=== PATIENT | female | born 1980 | race Caucasian/White ===

== ENCOUNTER 2021-12-04 13:30 | Outpatient (CLI) | payer BC, SELFPAY ==
--- NOTE | 2021-12-31 11:51 | P.SLS_ITS ---
Sleep Study Details Details Interpreting Provider: Delio Stock MD Date of Sleep Study: 12/04/2021 Sleep Study Details: STUDY TYPE:? Home ? BMI:? Not reported ORDERING PROVIDER:? Nirmala INDICATION:? Concerns about sleep apnea ? SLEEP SUMMARY:? 175.5 monitored minutes RESPIRATORY SUMMARY:? 1.4, low oxygen 83 0.8% of study oxygen less than 90%, 0.1% of study oxygen less than 85% 0.1% of study snoring PERIODIC LIMB MOVEMENTS OF SLEEP:? Not recorded CARDIAC:? Range 56 to 91, mean 66.9 IMPRESSION:? This study does not demonstrate clinically significant obstructive sleep apnea. The monitoring time was short of 175 minutes. If the patient did not sleep well during the study would recommend repeat study with a sedative hypnotic agent. Alternative would be an in-lab study if a sleep disorder is strongly suspected. RECOMMENDATION: See above
--- OUTSIDE RECORDS SUMMARY | 2022-01-15 13:33 | XMS_ITS | Encounter Summary ---
:1980 Author Organization [employer] Address [address], [place] [address] Care Team Providers Name Role Phone Raheel Silvestre MD Primary Care Provider Reason for Visit Reason Comments Nutrition Counseling Encounter Details Date Type Department Care Team Description 09/17/2015 Office Visit [facility] Tapia, Morbid obe sity with BMI of 40.0-44.9, adult ([facility]) (Primary Dx); Surgery & Weight RDN, LD Bariatric surgery status Center [address] [place] [address] [address] [place] [id number] [phone] Social History Tobacco Use Types Packs/Day Years Used Date Smoking Tobacco: Never Assessed Sex Assigned at Date Recorded Not on file documented as of this encounter Last Filed Vital Signs Vital Sign Reading Time Taken Comments Blood Pressure - - Pulse - - Temperature - - Respiratory Rate - - Oxygen Saturation - - Inhaled Oxygen Concentration - - Weight 106.2 kg (234 lb 1.6 oz) 09/17/2015 10:05 AM CDT Height 165.1 cm (5' 5) 09/17/2015 10:05 AM CDT Body Mass Index 38.96 09/17/2015 10:05 AM CDT documented in this encounter Progress Notes Amanda Tapia, RD - 09/17/2015 10:31 AM CDT [facility] Medical Nutrition Therapy: Bariatric Post-Op ASSESSMENT: Referring Provider: Orlando Jolly Weight: 106.187 kg (234 lb 1.6 oz) Height: 1.651 m (5' 5) BMI: Estimated body mass index is 38.96 kg/(m^2) as calculated from the following: Height as of this encounter: 1.651 m (5' 5). Weight as of this encounter: 106.187 kg (234 lb 1.6 oz). Follow-up after sleeve gastrectomy surgery. Date of Surgery: August 17, 2015. Since last RD visit: Doing great. Tolerating pureed, drinking adequate fluids. Current dietary habits: Breakfast: Triple power finnish yogurt- 4 oz. Lunch: 1 egg made into egg salad. Dinner: pureed tuna salad Snacks: skim milk or protein powder, or premier protein shakes. Protein needs estimated at 65 grams daily. Intake does meet estimated needs for protein. Vitamin/Minerals: Patient is taking the following vitamin and mineral supplements: multivitamin and mineral daily. Exercise: Patient is not engaging in physical activity: not yet- is walking and doing things with kids. DIAGNOSIS: Nutrition Diagnosis: Obesity (NC 3.3) related to excess energy intake as evidenced by BMI 44 prior to bariatric surgery. INTERVENTION: Medical Nutrition Therapy provided on post bariatric surgery nutrition and activity behaviors. MONITORING AND EVALUATION: Patient goals: Advance to mashed textures. Take multivitamin and mineral daily. Take 1000 mcg sublingual B12 weekly. Take 2000 IU vitamin D daily. Take 1000mg calcium daily. Follow up with dietitian in 1 month(s). Time: 30 minutes Thank you for this referral documented in this encounter Plan of Treatment Not on filedocumented as of this encounter Visit Diagnoses Diagnosis Morbid obesity with BMI of 40.0-44.9, ad ult ([facility]) - Primary Bariatric surgery status documented in this encounter Care Teams Compliance Examiner Relationship Specialty Start Date End Date Raheel Silvestre MD PCP - General 10/17/[address] [place] [address] documented as of this encounter
--- OUTSIDE RECORDS SUMMARY | 2022-01-15 13:33 | XMS_ITS | Encounter Summary ---
:1980 Author [facility] Address [address] [place] [address] Care Team Providers Name Role Phone Raheel Silvestre MD Primary Care Provider Reason for Visit Reason Onset Date Comments Follow-up, NOS 02/09/2017 [facility] long-term fo llow-up Encounter Details Date Type Department Care Team Description 02/09/2017 Telephone Quality Data and Mychart, Generic Follow- up, NOS ([facility] Measurement Provider long-term follow-up) [address] [place] [id number] Social History Tobacco Use Types Packs/Day Years Used Date Smoking Tobacco: Former Cigarettes Quit : 01/05/2008 Comments: quit january 7 years ago. Alcohol Use Standard Drinks/Week Comments No 0 (1 standard drink = 0.6 oz pure alcoho l) none since surgery Sex Assigned at Date Recorded Not on file documented as of this encounter Plan of Treatment Not on filedocumented as of this encounter Visit Diagnoses Not on filedocumented in this encounter Care Teams Partition Assembly Machine Operator Relationship Specialty Start Date End Date Raheel Silvestre MD PCP - General 10/17/[address] [place] [address] documented as of this encounter
--- OUTSIDE RECORDS SUMMARY | 2022-01-15 13:33 | XMS_ITS | Encounter Summary ---
:1980 Author Organization [employer] Address [address] [place] [address] Care Team Providers Name Role Phone Raheel Silvestre MD Primary Care Provider Reason for Visit Reason Comments Sleeve Surg Followup Encounter Details Date Type Department Care Team Description 09/17/2015 Office Visit Cary Bolaños Bariatric surgery Surgery & Weight Mio RN status ([facility]anca Pichardo) Center [address] [place] [address] [address] [place], [place] [address] Social History Tobacco Use Types Packs/Day Years Used Date Smoking Tobacco: Never Assessed Sex Assigned at Date Recorded Not on file documented as of this encounter Last Filed Vital Signs Vital Sign Reading Time Taken Comments Blood Pressure 94/65 09/17/2015 10:40 AM CDT Pulse 75 09/17/2015 10:40 AM CDT Temperature - - Respiratory Rate - - Oxygen Saturation - - Inhaled Oxygen Concentration - - Weight 106.2 kg (234 lb 1.6 oz) 09/17/2015 10:40 AM CDT Height 166.4 cm (5' 5.5) 09/17/2015 10:40 AM CDT Body Mass Index 38.36 09/17/2015 10:40 AM CDT documented in this encounter Patient Instructions Patient InstructionsCary Zarate RN - 09/17/2015 10:32 AM CDT Images from the original note were not included. Supplements to be started: Vitamin B12 once a week, 1,000 mcg's, one tablet taken under the tongue (allow to slowly dissolve), once a week. Vitamin D3, 2,000 international units, one capsule daily Viactive calcium (chewable form), one chew, twice a day You should already be taking your chewable vitamin everyday. If not, get it going. Protein: Strive to reach you protein goal requirements. Your food alone will not be enough to get you there. Supplement with protein powders as needed to reach you goal. Fluids: Goal of calorie free fluids is 48-64 ounces per day. Make sure that you stop your liquids 1/2 hour before your meal, with no fluids with your meal, and not resuming your liquids for 1/2 hour after yourmeal is completed. These rules are forever, to assure you have optimal weight loss, and to prevent weight regain. Activity: Increase your activity as tolerated, but always feel challenged with whatever you do for activity. Goal to work towards is 30 minutes 5 days a week. When you feel like your exercise plan is no longer achallenge to you, bump it up. If you have underlying health conditions, make sure your primary is okay with your exercise plan. Be sure to review your 3-ring binder often. Our support group meets the and Thursday of every month from 5:30 to 6:30 pm in the lobby of our clinic. This is a support group for those who are considering or have undergone bariatric surgery. The groupexists to encourage the well-being of the whole person - body, mind and spirit. This group is a place of safety and support, where no one is judged, and each person is warmly welcomed. Please join us! -Check us out on Facebook and Twitter [email or web address] documented in this encounter Progress Notes Cary Zarate RN - 09/17/2015 10:56 AM CDT Bariatric Surgery Center Nurse Clinician Post-Op Follow-Up Visit SUBJECTIVE: This 35 y.o. year-old female presents for routine post-operative follow up status vertical sleeve gastrectomy Date of Surgery: 08/17/2015 Patient has been satisfied with weight loss results to this point. Problems: Diabetes, Mellitus, Type 2 and Joint Pain (Wt. bearing) Meals per day: 3 Dietary Intake: Food volumes are approximately 2-3 tbsp, 1/4 cup at each meal. Food Intolerances: None Patient is not experiencing dumping syndrome. Patient is snacking on nothing. Fluid intake averages > 64 oz per day. Skim milk: Consumes 2 servings of 8 oz Protein Shake: Consumes 2 servings Yogurt: 1 daily. Protein intake 60-70 grams daily Exercise: Patient is currently engaged in a formal exercise program. Patient current exercise routine consists of aerobic and > 5 times weekly Medications: History Smoking status ??? Former Smoker ??? Quit date: 01/05/2008 Smokeless tobacco ??? Not on file Comment: quit january appx 7 years ago. History Alcohol Use No Comment: none since surgery Patient is not experiencing difficulty in relationships related to the bariatric surgery. Patient's family is supportive. Patient is currently employed. Patient is not active in support groups. OBJECTIVE: BP 94/65 mmHg Pulse 75 Ht 5' 5.5 (166.4 cm) Wt 234 lb 1.6 oz (444403 g) BMI 38.35 kg/m2 Weight Last Visit: 254 lbs. Initial Weight: 279.6 lbs. Weight Change Since Last Visit: 19.9 lbs Total Weight Change: 45.4 lbs % Excess Weight Loss: 31%. CV: negative Gastrointestinal: no abdominal pain, change in bowel habits, or black or bloody stools Wound(s): Incisions are well healed Incisional hernia is not present. Lower Extremities: no redness or tenderness in the calves or thighs, no edema Skin: Skin color, texture, turgor normal. No rashes or lesions Hair loss is not present. Neuropsych: Normal ASSESSMENT: No symptoms and Uneventful post-op course PLAN: Patient is advised to continue supplements as per med list. Dietary Recommendations: Discussed with the patient appropriate diet after vertical sleeve gastrectomy with emphasis on 3 meals per day, with protein at every meal followed bya good fruit and/or vegetable choice. Meal duration, exercise, snacking avoidance, avoidance of highcalorie liquids, and satiety goals were also reviewed. Patient is advised to continue supplements. Activity Recommendations: Increase physical activity as tolerated to goal of 30 minutes five times per week. Return to clinic in 2 months, sooner prn problems or concerns. Dietitian appointment to be scheduled. Psychology follow-up prn. Patient is asked to follow up with primary care provider for further evaluation and treatment of changing medical comorbidities. documented in this encounter Plan of Treatment Not on filedocumented as of this encounter Visit Diagnoses Diagnosis Bariatric surgery status - Primary documented in this encounter Care Teams Pharmacy Cashier Relationship Specialty Start Date End Date Raheel Silvestre MD PCP - General 10/17/14[address] [place] [address] documented as of this encounter
--- OUTSIDE RECORDS SUMMARY | 2022-01-15 13:33 | XMS_ITS | Clinical Summary ---
:1980 Author Organization [facility] Address [address] [place] [address] Care Team Providers Name Role Phone Raheel Silvestre MD Primary Care Provider Source Comments You are receiving this document as you are listed as the primary care provider,follow-up provider, or the patient has been referred to you for consultation.This is in compliance with the Medicare and Medicaid EHR Incentive Program,which states Providers who transition their patient to another setting of careor provider of care or refers their patient to another provider of care shouldprovide summarycare record for each transition of care or referral. [facility] Allergies No known active allergies Medications Medication Sig Dispensed Refills Start Date End Date Status zolpidem (AMBIEN) 10 Take 10 mg by 0 11/28/2014 Active MG tablet mouth at bedtime as needed for Sleep. acetaminophen Take 325-650 mg by 0 11/28/2014 Active (TYLENOL) 325 MG mouth every 4 tablet hours as needed for Pain. Maximum 4000mg per 24 hours pediatric multiple Take 1 tablet by 0 09/07/2015 Active vitamin-iron (FRUITY mouth daily (every CHEWS/IRON) chew 24 hours). tablet Indications: MINERAL DEFICIENCY PREVENTION, VITAMIN DEFICIENCY PREVENTION cholecalciferol Take 1 tablet by 0 09/17/2015 Active (VITAMIND3) 2000 UNITS mouth daily (every tablet 24 hours). Indications: PREVENTION OF VITAMIN D DEFICIENCY cyanocobalamin Place 1,000 mcg 0 09/17/2015 Active (VITAMIN B12) 1000 MCG under the tongue tablet once a week. Indications: PREVENTION OF VITAMIN B12 DEFICIENCY Calcium Citrate Take 1 tablet by 0 11/02/2015 Active (CALCITRATE) 950 MG mouth 2 times tablet daily. Indications: HYPOCALCEMIA PREVENTION FLUoxetine (PROZAC) 40 Take 40 mg by 0 12/12/2020 Active MG capsule mouth daily. omeprazole (PRILOSEC) Take 20 mg by 0 01/08/2021 Active 20 MG capsule mouth daily before breakfast. 1-2 times daily Methotrexate 12.5 0 Ac tive MG/0.5ML SOSY predniSONE (DELTASONE) 0 01/29/2021 Active 20 MG tablet Active Problems Problem Noted Date Bariatric surgery status 08/17/2015 Overview: Laparoscopic vertical sleeve gastrectomy Morbid obesity with BMI of 40.0-44.9, adult 12/05/2014 Chronic low back pain 12/05/2014 Overview: Disc disease L4-5 Family History Medical History Relation Name Comments Alcohol Abuse Father Osteoarthritis Father Anesthesia Reaction Mother Obesity Mother Coronary Artery Disease Maternal Grandfather Anxiety Maternal Grandmother Cancer Maternal Grandmother Bipolar Disorder Paternal Aunt Cancer Paternal Grandmother Depression Sister Obesity Sister Relation Name Status Comments Father Alive Mother Alive Maternal Grandfather Maternal Grandmother Paternal Aunt Paternal Grandmother Sister Social History Tobacco Use Types Packs/Day Years Used Date Smoking Tobacco: Former Cigarettes Quit : 01/05/2008 Smokeless Tobacco: Never Comments: quit january 7 years ago. Alcohol Use Standard Drinks/Week Comments Yes 0 (1 standard drink = 0.6 oz pure alcoho l) 1-2 per week Sex Assigned at Date Recorded Not on file Last Filed Vital Signs Vital Sign Reading Time Taken Comments Blood Pressure 114/67 02/08/2021 9:50 AM CDT Pulse 73 02/08/2021 9:50 AM CDT Temperature 36.4 ??C (97.5 ??F) 08/19/2015 7:40 AM CDT Respiratory Rate 18 08/19/2015 7:40 AM CDT Oxygen Saturation 99% 08/19/2015 7:40 AM CDT Inhaled Oxygen Concentration - - Weight 101.4 kg (223 lb 8 oz) 02/08/2021 9:44 AM CDT Height 166.4 cm (5' 5.5) 02/08/2021 9:44 AM CDT Body Mass Index 36.63 02/08/2021 9:44 AM CDT Plan of Treatment Health Maintenance Due Date Last Done Comments Cervical Cancer Screening 1980 Due Hep C Screening (Preventive 1980 Services) HepB (1) 1980 COVID-19 Vaccine (#1) 01/12/1980 HIV Screening (Preventive 1995 Services) Adult Preventive Visit 07/12/1997 DTaP/Tdap/Td (2 - Tdap) 01/03/2021 01/03/2011 Influenza (#1) 2021 12/26/2019, 01/24/2019, 01/28/2018, Additional history exists Zoster/Shingles (1 of 2) 07/12/2029 HPV Vaccine Aged Out No longer eligib le based on patient 's age to complete this topic HepA Aged Out No longer eligib le based on patient 's age to complete this topic Hib Aged Out No longer eligib le based on patient 's age to complete this topic IPV (Polio) Aged Out No longer eligib le based on patient 's age to complete this topic MCV4 Aged Out No longer eligib le based on patient 's age to complete this topic Pneumococcal Aged Out No longer eligib le based on patient 's age to complete this topic Insurance Payer Benefit Plan / Subscriber ID Effective Dates Phone Addre ss Type Group BCBS BCBS [employer] BLUE [id number] 2017-Present [address] [address] [place] [address] Jenny Humphreys Personal/Family Self 1980 [address] (Home) [place] [id number] FRANK HUMPHREYS Personal/Family Other 1976 [address] (Home) [place] [phone] (Work) Advance Directives Latest Code Status on File Code Status Date Activated Date Inactivated Comments Full Code 08/17/2015 11:01 AM 08/19/2015 4:29 PM Care Teams Client Reporting Associate Relationship Specialty Start Date End Date Raheel Silvestre MD PCP - General [address] [place] [address]
--- OUTSIDE RECORDS SUMMARY | 2022-01-15 13:33 | XMS_ITS | Encounter Summary ---
:1980 Author Organization [employer] Address [address] [address] Care Team Providers Name Role Phone Raheel Silvestre MD Primary Care Provider Reason for Visit Reason Comments Appt. Needed Encounter Details Date Type Department Care Team Description 11/23/2017 Telephone [place] [facility] Weight Marychuy Terrell RN Appt. Needed Center [address] [facility] [address] [place], [place] [id number] Social History Tobacco Use Types Packs/Day Years Used Date Smoking Tobacco: Former Cigarettes Quit : 01/05/2008 Comments: quit january appx 7 years ago. Alcohol Use Standard Drinks/Week Comments No 0 (1 standard drink = 0.6 oz pure alcoho l) none since surgery Sex Assigned at Date Recorded Not on file documented as of this encounter Nursing Notes Mt Terrell RN - 11/23/2017 3:40 PM CDT Called patient to discuss need for follow up visit after bariatric surgery: We missed you for your follow-up visit with your bariatric surgery team. Our goal is to help you through this life-changing event to assure not only your success, but also your continued good health. Please remember that these visits are not only important for continued success, but also to monitor your lab work. Even when you feel completely healthy, underlying health issues and deficiencies can occur if not closely monitored. Whether we are helping motivate for continued success or helping you getback on track, our team is here to help. Please call [phone] today to schedule an appointment. If you no longer plan to see us for your follow-up care, or if you have [facility] or [facility] clinic or Emergency department, please call [phone] and speak with a nurse so we can update your chart. documented in this encounter Plan of Treatment Not on filedocumented as of this encounter Visit Diagnoses Not on filedocumented in this encounter Care Teams Drill Operator Pneumatic Relationship Specialty Start Date End Date Raheel Silvestre MD PCP - General 10/[address] [place] [address] documented as of this encounter
--- OUTSIDE RECORDS SUMMARY | 2022-01-15 13:33 | XMS_ITS | Encounter Summary ---
:1980 Author Organization [employer] Address [address] [address] Care Team Providers Name Role Phone Raheel Silvestre MD Primary Care Provider Reason for Visit Reason Comments Post-Op Check Encounter Details Date Type Department Care Team Description 08/21/2015 Telephone [place] [facility] & Gloria Augustin RN Post-Op Check Weight Center [address] [facility] [address] [place], [place] [address] Social History Tobacco Use Types Packs/Day Years Used Date Smoking Tobacco: Never Assessed Sex Assigned at Date Recorded Not on file documented as of this encounter Nursing Notes Gloria Augustin RN - 08/21/2015 3:41 PM CDT Post-op phone call made today. Spoke with the patient . Pt. states she is doing well postoperatively.. PO fluid intake is adequate, pain control is good. She is encouraged to call the office with any questions or concerns re: the recent bariatric surgery. Call back number given. She is reminded of their post-op follow-up appointment scheduled for . ERSHIP ADVISOR documented in this encounter Plan of Treatment Not on filedocumented as of this encounter Visit Diagnoses Not on filedocumented in this encounter Care Teams Showroom Executive Director Relationship Specialty Start Date End Date Raheel Silvestre MD PCP - General 10/17/[address] [place] [address] documented as of this encounter
--- OUTSIDE RECORDS SUMMARY | 2022-01-15 13:33 | XMS_ITS | Encounter Summary ---
:1980 Author Organization [employer] Address [address] [place] [id number] Care Team Providers Name Role Phone Raheel Silvestre MD Primary Care Provider Reason for Visit Reason Comments Sleeve Surg Followup Encounter Details Date Type Department Care Team Description 08/23/2015 Office Visit [facility] Gloria Augustin [facility] surgery Surgery & Weight RN status (Blanca Pichardo) Center [address] [place] [address] [address] [place], [place] [id number] Social History Tobacco Use Types Packs/Day Years Used Date Smoking Tobacco: Never Assessed Sex Assigned at Date Recorded Not on file documented as of this encounter Last Filed Vital Signs Vital Sign Reading Time Taken Comments Blood Pressure - - Pulse 78 08/23/2015 9:44 AM CDT Temperature - - Respiratory Rate - - Oxygen Saturation - - Inhaled Oxygen Concentration - - Weight 115.2 kg (254 lb) 08/23/2015 9:44 AM CDT Height 166.4 cm (5' 5.5) 08/23/2015 9:44 AM CDT Body Mass Index 41.63 08/23/2015 9:44 AM CDT documented in this encounter Patient Instructions Patient InstructionsGloria Augustin RN - 08/23/2015 8:55 AM CDT Images from the original note were not included. Continue discharge meds as ordered. Follow instructions on after visit summary given to you on discharge from the hospital. Advance diet to full liquids, then pureed foods as outlined in your patient binder. Continue to push fluids to 48-64 ounces daily. If you are experiencing nausea, this may be related to dehydration. Begin chewable vitamins when you start the pureed foods. Keep incisions clean, washing daily with soap and water. Some bruising is normal. Increase activity as tolerated to a goal of 30 minutes daily, 5 times per week. Continue to work toward your protein goals. You will not be able to get your protein needs met due to small food volumes. You must use protein supplements as needed to meet your goal. Refer to your 3-ring binder often. A dietitian appointment should be scheduled when you leave today for one month after surgery. Please schedule an appointment with a nurse clinician for one month after surgery also. Our support group meets the and Thursday of every month in the lobby of our clinic. om 5:30 to 6:30 pm [facility] for those who are considering or have undergone bariatric surgery. The group exists to encourage the well- being of the whole person - body, mind and spirit. This group is a place of safety and support, where no one is judged, and each person is warmly welcomed. Please join us! -Check us out on Facebook and Twitter [email or web address] documented in this encounter Progress Notes Gloria Augustin RN - 08/23/2015 11:21 AM CDT Bariatric Surgery Center RN Initial Post-Op Visit SUBJECTIVE: This 35 y.o. year-old female presents for routine first post-operative follow-up, status post Vertical Sleeve Gastrectomy. Date of Surgery: 08/17/2015 Patient Symptoms: Fluid intake averages 48 to 64. Patient reports Uneventful post-op course. The patient is tolerating clear diet well. The patient will advance from clears to full liquids today. Exercise: Patient is primarily pursuing walking. OBJECTIVE: Today's Height: 5' 5.5 (166.4 cm) Preoperative Weight: 279.6 BMI: 45.8 Today's Weight: 254 lb (995694 g) BMI: Estimated body mass index is 41.61 kg/(m^2) as calculated from the following: Height as of this encounter: 5' 5.5 (166.4 cm). Weight as of this encounter: 254 lb (344359 g). Total Weight Change: 25.6 % Excess Weight Loss: 18%. Vitals: Pulse 78 Ht 5' 5.5 (166.4 cm) Wt 254 lb (694045 g) BMI 41.61 kg/m2 General Appearance: awake, alert, oriented, in no acute distress Skin: Skin color, texture, turgor normal. Incisions: steri strips clean, dry, intact Incisional hernia is not present. Lungs: Normal expansion, no accessory muscle use Heart: Heart regular rate and rhythm Abdomen: Soft, non-tender, normal bowel sounds. Extremities: no redness or tenderness in the calves or thighs, no edema Musculoskeletal: negative Neurologic: negative ASSESSMENT: Uneventful post-op course PLAN: Return to clinic in 2 to 3 weeks, sooner if any concerns. Discussed with the patient appropriate diet after a Vertical Sleeve Gastrectomy with emphasis on 3 meals per day, with protein at every meal followed by a good fruit and/or vegetable choice. Meal duration, exercise, snacking avoidance, avoidance of high calorie liquids, and satiety goals were also reviewed. Dietitian appointment in 2-3 weeks. Increase physical activity as tolerated to goal of 30 minutes five times per week. Return to work and activities as tolerated. Patient is asked to follow up with primary care provider for further evaluation and treatment of changing medical comorbidities. CTOR ENGINEERING documented in this encounter Plan of Treatment Not on filedocumented as of this encounter Visit Diagnoses Diagnosis Bariatric surgery status - Primary documented in this encounter Care Teams Supervisor Riprap Placing Relationship Specialty Start Date End Date Raheel Silvestre MD PCP - General 10/17/[address] [place] [address] documented as of this encounter
--- OUTSIDE RECORDS SUMMARY | 2022-01-15 13:33 | XMS_ITS | Encounter Summary ---
:1980 Author Organization [employer] Address [address] [address] Care Team Providers Name Role Phone Raheel Silvestre MD Primary Care Provider Reason for Visit Reason Comments Nutrition Counseling Encounter Details Date Type Department Care Team Description 11/02/2015 Office Visit [place] [facility] Amanda Simms, Morbid obesity with Surgery & Weight RDN, ATTILA BMI of 40.0-44.9, Center [address] [facility] adult ([facility]) (Primary [address] [facility] [address]) [address] [place] [id number] [phone] Social History Tobacco Use Types Packs/Day Years Used Date Smoking Tobacco: Never Assessed Sex Assigned at Date Recorded Not on file documented as of this encounter Last Filed Vital Signs Vital Sign Reading Time Taken Comments Blood Pressure - - Pulse - - Temperature - - Respiratory Rate - - Oxygen Saturation - - Inhaled Oxygen Concentration - - Weight 99.8 kg (220 lb 1.6 oz) 11/02/2015 10:51 AM CDT Height 166.4 cm (5' 5.5) 11/02/2015 10:51 AM CDT Body Mass Index 36.07 11/02/2015 10:51 AM CDT documented in this encounter Progress Notes Amanda Simms, RD - 11/02/2015 11:47 AM CDT ..[facility] Education Medical Nutrition Therapy: Bariatric Post-Op ASSESSMENT: Referring Provider: Orlando Jolly Weight: 99.837 kg (220 lb 1.6 oz) Height: 1.664 m (5' 5.5) BMI: Estimated body mass index is 36.06 kg/(m^2) as calculated from the following: Height as of this encounter: 1.664 m (5' 5.5). Weight as of this encounter: 99.837 kg (220 lb 1.6 oz). Follow-up after sleeve gastrectomy surgery. Date of Surgery: August 17, 2015. Since last RD visit: doing really really well. Current dietary habits: Breakfast: yogurt or deli meat/cheese. (has at break time) Lunch: chix/turkey and fruit/veg Dinner: chix/turkey and fruit/veg S nacks: cottage cheese (couple bites, sometimes). Protein needs estimated at 65 grams daily. Intake does meet estimated needs for protein. Vitamin/Minerals: Patient is taking the following vitamin and mineral supplements: multivitamin and mineral daily. 1000 mcg sublingual B12 weekly. 2000 IU vitamin D daily. 1000 mg calcium daily. Exercise: Patient is engaging in physical activity: walking almost daily. DIAGNOSIS: Nutrition Diagnosis: Altered GI function (NC 1.4) related to small stomach as evidenced by sleeve gastrectomy. INTERVENTION: Medical Nutrition Therapy provided on post bariatric surgery nutrition and activity behaviors. MONITORING AND EVALUATION: Patient goals: suggested including PRO shake every AM (early) since B is a bit later and this will likely eliminate . Follow up with dietitian in 1 month(s). Time: 30 minutes Thank you for this referral documented in this encounter Plan of Treatment Not on filedocumented as of this encounter Visit Diagnoses Diagnosis Morbid obesity with BMI of 40.0-44.9, ad ult ([facility]) - Primary documented in this encounter Care Teams Spinning Operator Relationship Specialty Start Date End Date Raheel Silvestre MD PCP - General [address] [place] [address] documented as of this encounter
--- OUTSIDE RECORDS SUMMARY | 2022-01-15 13:33 | XMS_ITS | Encounter Summary ---
:1980 Author Organization [employer] Address [address] [place] [id number] Care Team Providers Name Role Phone Raheel Silvestre MD Primary Care Provider Reason for Visit Reason Comments Sleeve Surg Followup Encounter Details Date Type Department Care Team Description 11/02/2015 Office Visit [facility] [place] [facility] Bariatric surgery Surgery & Weight TRUDY Lieberman status (Blanca Pichardo) Center [address] [facility] [address] [place], [place] [address] Social History Tobacco Use Types Packs/Day Years Used Date Smoking Tobacco: Never Assessed Sex Assigned at Date Recorded Not on file documented as of this encounter Last Filed Vital Signs Vital Sign Reading Time Taken Comments Blood Pressure 97/66 11/02/2015 11:42 AM CDT Pulse 93 11/02/2015 11:42 AM CDT Temperature - - Respiratory Rate - - Oxygen Saturation - - Inhaled Oxygen Concentration - - Weight 99.8 kg (220 lb) 11/02/2015 11:42 AM CDT Height 168.9 cm (5' 6.5) 11/02/2015 11:42 AM CDT Body Mass Index 34.98 11/02/2015 11:42 AM CDT documented in this encounter Progress Notes [place] Zarate RN - 11/02/2015 12:03 PM CDT Bariatric Surgery Center Nurse Clinician Post-Op Follow-Up Visit SUBJECTIVE: This 35 y.o. year-old female presents for routine post-operative follow up status vertical sleeve gastrectomy Date of Surgery: 08/17/2015 Patient has been satisfied with weight loss results to this point. Problems: Joint Pain (Wt. bearing) Meals per day: 3 Dietary Intake: Food volumes are approximately 2-3 tbsp, 1/4 cup, 1/2 cup at each meal. Food Intolerances: None Patient is not experiencing dumping syndrome. Patient is snacking on cheese or deli meats at times.Fluid intake averages 48 to 64 oz per day. Skim milk: Consumes 2 servings of 8 oz Protein Shake: Consumes 1 servings Yogurt: 1 daily. Protein intake 60-70 grams daily Exercise: Patient is currently engaged in a formal exercise program. Patient current exercise routine consists of aerobic, strength training, less than 30 minutes, 30 minutes or more and > 5 times weekly Medications: History Smoking status ??? Former Smoker ??? Quit date: 01/05/2008 Smokeless tobacco ??? Not on file Comment: quit january appx 7 years ago. History Alcohol Use No Comment: none since surgery Patient is experiencing difficulty in relationships related to the bariatric surgery. Patient's family is supportive. Patient is currently employed. Patient is active in support groups. OBJECTIVE: BP 97/66 mmHg Pulse 93 Ht 5' 6.5 (168.9 cm) Wt 220 lb (42647 g) BMI 34.98 kg/m2 Weight Last Visit: 234.1 lbs. Initial Weight: 279.6 lbs. Weight Change Since Last Visit: 14.1 lbs Total Weight Change: 59.5 lbs % Excess Weight Loss: 41%. CV: negative Gastrointestinal: no abdominal pain, change [...] times per week. Return to clinic in 3 months, sooner prn problems or concerns. Dietitian appointment to be scheduled. Psychology follow-up prn. Patient is asked to follow up with primary care provider for further evaluation and treatment of changing medical comorbidities. documented in this encounter Plan of Treatment Not on filedocumented as of this encounter Visit Diagnoses Diagnosis Bariatric surgery status - Primary documented in this encounter Care Teams Casing Inspector Relationship Specialty Start Date End Date Raheel Silvestre MD PCP - General 10/[address] [place] [address] documented as of this encounter
--- OUTSIDE RECORDS SUMMARY | 2022-01-15 13:33 | XMS_ITS | Encounter Summary ---
:1980 Author Organization [facility] Address [address], [place] [address] Care Team Providers Name Role Phone Raheel Fox MD Primary Care Provider Encounter Details Date Type Department Care Team Description 08/17/2015 - Hospital Encounter Mu-Ism 4Orlando Hansen, 08/19/2015 Medsurg/CYA MBBS [address] [facility] [address] [place] [id number] (Wo rk) Social History Tobacco Use Types Packs/Day Years Used Date Smoking Tobacco: Never Assessed Sex Assigned at Date Recorded Not on file documented as of this encounter Last Filed Vital Signs Vital Sign Reading Time Taken Comments Blood Pressure 115/67 08/19/2015 7:40 AM CDT Pulse 58 08/19/2015 7:40 AM CDT Temperature 36.4 ??C (97.5 ??F) 08/19/2015 7:40 AM CDT Respiratory Rate 18 08/19/2015 7:40 AM CDT Oxygen Saturation 99% 08/19/2015 7:40 AM CDT Inhaled Oxygen Concentration - - Weight 115.8 kg (255 lb 6.4 oz) 08/17/2015 5:47 AM CDT Height 165.1 cm (5' 5) 08/17/2015 5:47 AM CDT Body Mass Index 42.5 08/17/2015 5:47 AM CDT documented in this encounter Discharge Summaries Orlando Jolly MBBS - 08/19/2015 2:29 PM CDT Hospital Discharge Summary Bariatric Surgery Admission Date: 08/17/2015 Discharge Date: 08/19/2015 PATIENT HISTORY: Age: 35 y.o. years. Gender: female Vital Signs: BP 115/67 mmHg Pulse 58 Temp(Src) 97.5 ??F (36.4 ??C) (Oral) Resp 18 Ht 5' 5 (165.1 cm) Wt 255 lb 6.4 oz (060113 g) BMI 42.50 kg/m2 SpO2 99% DISCHARGE DIAGNOSES: as stated in the problem list below Patient Active Problem List Diagnosis ??? Morbid obesity with BMI of 40.0-44.9, adult (HRC) ??? Chronic low back pain ??? Laparoscopic vertical sleeve gastrectomy Procedures performed during this visit Laparoscopic Vertical Sleeve Gastrectomy (Surgeon: Dr. Jolly) Intraoperative Complications: None Postoperative Complications: None HOSPITAL COURSE: The patient was admitted to [facility] and underwent surgery, then transferred from the [address] without incident. Pt. was initiated on a clear liquid diet on the evening of surgery. On POD #1 patient had complaints of nausea and emesis. She received a total of two doses of IV Decadron and improved. Ultimately the pt. progressed without incident. On POD# 2 was tolerating fluids, vitals stable, afebrile, urine output satisfactory, and pt. was ambulating without difficulty. Pt. met criteria for discharge on POD #2. DISCHARGE PLAN: Observations, precautions, diet, activity, follow-up, special instructions and discharge medications were reviewed in detail with the patient and provided in written form. Medications were reviewed and updated on the Patient Health Profile in the electronic medical record. Please see discharge instruction form and the electronic medical record for more details. Pt. advised to follow up with primary care provider for medical issue follow up. Follow-up: Patient is to follow up via appointment with the bariatric surgery department as previously scheduled. documented in this encounter Discharge Instructions Discharge Instr - Other OrdersGospMartin gonzalez PA-C - 08/17/2015 9:21 AM CDT Hold all vitamins and supplements until directed at your follow-up visit. Do not take NSAIDs which include ibuprofen, advil, aleve after bariatric surgery. If you have post-op difficulties and need to go to an Emergency Room please present to [facility] Emergency Room. Wear abdominal binder when out of bed for one week after surgery. Then may continue to wear binder as needed for comfort. documented in this encounter Medications at Time of Discharge Medication Sig Dispensed Refills Start Date End Date acetaminophen (TYLENOL) Take 325-650 mg by 0 11/05 325 MG tablet mouth every 4 hours as needed for Pain. Maximum 4000mg per 24 hours zolpidem (AMBIEN) 10 MG Take 10 mg by mouth 0 tablet at bedtime as needed for Sleep. omeprazole (PRILOSEC) 20 Take 1 capsule by 90 capsule 0 08/0411/15/2015 MG capsule mouth daily (every 24 hours) for 90 days. ondansetron (AKA ZOFRAN) Take 1 tablet by 30 tablet 0 08/1608/23/2015 4 MG disintegrating mouth every 8 hours tablet as needed for Nausea or Vomiting. Dissolve tablet on tongue oxyCODONE (AKA Take 1-2 tablets by 30 tablet 0 08/17/2015 0 09/17/2015 ROXICODONE) 5 MG mouth every 4 hours immediate release tablet as needed for Pain. simethicone ([employer] [facility] Take 1 tablet by 120 tablet 2 6 02/08/2021 RELIEF EXTRA STRENGTH) mouth 4 times 125 MG chewable tablet daily. documented as of this encounter Progress Notes Orlando Jolly MBBS - 08/19/2015 2:29 PM CDTEncounter addended by: SARAH Amador on: 09/16/2015 8:43 PM
Documentation filed: Notes Section Lanette Roberts RN - 08/19/2015 2:29 PM CDT DISCHARGE O: Patient safely discharged to home. D: Patient is alert and oriented x 4. Pt up independently . Discharge criteria met. Vaccines addressed prior to discharge. A: Discharge instructions and medications reviewed and given to patient and significant other. Written medication education material provided on zofran, simethecone, oxycodone, prilosec including possible side effects. Prescriptions sent with patient. Belongings checklist reviewed with patient and significant other and belongings sent. Care plan issues addressed and education record updated. R: Patient verbalizes understanding and teaches back discharge instructions. Patient discharged by: ambulation with family. Lanette Reyes RN 2:30 PM 08/19/2015 Isidoro Gary MD - 08/19/2015 10:45 AM CDT surgery staff afvss feels much better abd benign, dressings dry a/p s/p sleeve will try another dose of decadron. ? dc later today Lanette Roberts RN - 08/18/2015 7:29 PM CDT O: Patient will tolerate bariatric clear liquid diet/increase oral intake, tolerate oral pain medications and have no nausea/vomiting. D: Patient struggled throughout the day with nausea/vomiting and tightness in abdomen. Nauseated with sips of water. had 2 small emesis. A: Zofran and ativan given for nausea with little relief. Also gave levsin. Rounding surgeon ordereda one time dose of decadron, prn tylenol and prn phenergan. R: Patient's nausea and pain improved after decadron. Is again able to tolerate water and oral pain medication. Will continue to encourage increase in oral intake. Lanette Reyes RN 7:29 PM 08/18/2015 Zuleika Bell MD - 08/18/2015 1:34 PM CDT POD 1 lap sleeve +ongoing nausea and emesis, +pain, hasn't been able to drink much yet. Not ready for dc. +voiding. AF, VSS abdomen soft, ND, +appropriate incisional tenderness A/P POD 1 decadron IV x 1 today clears as tolerated encourage ambulation likely dc home tomorrow when tolerating po Charlee Mckeon - 08/18/2015 9:39 AM CDT Nutrition Education Assessment Reason for education: Post-op diet education Patient Interview/Diet History: Pt s/p VSG. Currently on Bariatric CL diet. Tried to eat a popsicle this morning and vomited after eating. Pt thinks it may have been related to product room was cleanedwith, smelled strongly of vinegar and was upsetting. Has since tried sips of water without difficulty. Current and Discharge Diet: Bariatric CL diet Present for Education: Pt, SO Nutrition Diagnosis Nutrition Diagnosis: (NB-1.1) Food and nutrition related knowledge deficit related to limited/lack of prior exposure to specific diet recommendations as evidenced by change in existing diagnosis or condition and/or patient verbalizing interest in information. Nutrition Intervention Goal: Pt will understand guidelines of bariatric CL diet as evidenced by verbalization of at least 1food allowed on diet. Intervention: 1. Diet Education: Discussed: timeline for diet , foods allowed/avoided, diet progression per clinic guidance, eat/drink slowly, adequate hydration. Provided diet sheet for home use. Clinic contact information provided. Comprehension: Pt verbalized understanding of diet. States water, popsicles appropriate fluid choicefor this diet - meets above goal. Monitoring and Evaluation: No nutritional monitoring anticipated at this time. If pt develops any nutrition needs requiring RD intervention, please reconsult RD. Charlee Greene RD, LD, [facility].....................08/18/2015 9:37 AM Orlando López MBBS - 08/17/2015 8:50 PM CDT [facility] Progress note Subjective: POD # 0 s/p Lap sleeve gastrectomy good pain control no nausea, no emesis not spitting up Is tolerating clears Is ambulating Is voiding Objective: Filed Vitals: 08/17/15 1345 08/17/15 1435 08/17/15 1600 BP: 114/62 112/62 104/56 Pulse: 60 55 59 Temp: 97.7 ??F (36.5 ??C) Resp: 16 Weight: SpO2: 93% Assessment: POD # 0 S/P lap Sleeve Gastrectomy Doing well Plan: Bariatric clears ice chips Simethicone Abd binder Anticipate dc tomorrow Orlando Jolly MD [facility] Department of General Surgery N SUPERVISOR Terell Sullivan RN - 08/17/2015 11:25 AM CDT POST-OP O: Patient will have a stable post-op period. D: Pt arrived to room 416/416 -01, at 1100 (time). Patient is lethargic/drowsy. Initial Vital Signs: Temp: 36.4 ??C (97.5 ??F) (08/17/15 1105) Pulse: 56 (08/17/15 1105) Resp: 16 (08/17/15 1105) BP: 100/56 mmHg (08/17/15 1105) SpO2: 94 % (08/17/15 1105) Flow (L/min): 2 (08/17/15 1105) Pain rated at: 2. See Assessment and Doc Flowsheets for equipment and lines/drains. Dressing is clean, dry, intact. A: Monitor vital signs and assess patient per protocol. Patient oriented to bed controls and call lights. Discussed plan of care with patient and significant other. See Education Record. R: Patient settled to room. Will continue to monitor. Terell Sullivan RN 11:25 AM 08/17/2015 N SUPERVISOR documented in this encounter Procedure Notes Orlando Jolly MBBS - 08/17/2015 9:04 AM CDT [facility] Operative Report Date of Surgery: 08/17/2015 Pre Op Diagnosis: Morbid Obesity Post Op Diagnosis: Same Procedure Performed: Procedure(s): Laparoscopic Sleeve Gastrectomy, Upper Endoscopy Findings: Uniform vertical gastric sleeve on endoscopy Negative provocative leak test 40 F Bougie used Distal end of staple line 5 cm from pylorus Bio-A staple line re-inforcement, No sutures used for reinforcement No Hiatal hernia noted Bleeding from the dissected splenic surface was controlled with surgicel SURGEON: Orlando Jolly MD [facility] [employer] PRINCIPAL: Martin Pinedo PA-C The surgical residents are not qualified to assist in this surgery so a Physician Airplane Pilot Chief who specialized in Bariatric surgery was the store administrative assistant in this case. ANESTHESIA: GETA EBL: 30 ml SPECIMENS: Gastric remnant COMPLICATIONS: None DISPOSITION: Stable, transfer to Surgical floor Indications for Procedure: 35 y.o. yr old female who is morbidly obese. Numerous weight loss attempts without surgery have beenwithout success. Estimated body mass index is 42.5 kg/(m^2) as calculated from the following: Height as of this encounter: 5' 5 (165.1 cm). Weight as of this encounter: 255 lb 6.4 oz (683236 g). Procedure discussed: Lap sleeve gastrectomy, upper endoscopy. Had earlier discussed profile for weight loss, co morbidity resolution and risks/complications with the Sleeve gastrectomy. She understands that the weight loss and co-morbidity resolution she achievesand subsequently maintains will be impacted by her follow through on the recommendations made for diet, lifestyle and activity Had discussed procedure, risks, benefits and alternatives. She had expressed understanding of the potential outcomes and wished to proceed. In particular discussed the potential exacerbation of her GERD symptoms. Risks had included, but were not limited to, worsening heartburn/reflux, nausea, vomiting, dehydration, decreased absorption of vitamins regurgitation, strictures, leaks, abscesses, failure to thrive, re operations, , myocardial infarction, pneumonia, urinary tract infection, deep venous thrombosi s with or without pulmonary embolus, abdominal infection from bowel injury or abscess, bowel obstruction, wound infection, and bleeding. Also discussed risks relative to possible hiatal hernia repair if a significant hernia is identified to include, dysphagia, esophageal injury, recurrence Operative Procedure: Jenny Jiménez was brought to the operating room and prepared in routine fashion. Under the benefitsof general anesthesia, a 5 mm FIOS trocar was inserted in the Rt paramedian location and pneumoperitoneum was established using carbon dioxide gas to a maximum pressure of 15 mmHg. A total of five ports were placed into the abdomen. A liver retractor was placed through the rightmost port and this provided a view of the upper stomach. The operation was started by dividing the short gastric vessels off the greater curvature of the stomach. This dissection was carried up to the angle of His, and ultrasonic dissector was used for hemostasis. Bleeding from the dissected splenic surface was noted on taking down the most cephalad of short gastrics and was controlled with surgicel A hiatal hernia was noted. A 40-Malawian bougie was passed into the stomach and I used multiple black and green loads of the Cal[place] stapler device with seamguard to create a vertical sleeve gastrectomy with the 40-Malawian bougie as a template. The bougie was removed. An adult gastroscope was then inserted through the oropharynx and passed down through the esophagus into the gastric sleeve. The endoscope was advanced along the full length of the sleeve and everything looked appropriate with an intact staple line and no bubbling externally. The endoscope was then removed. The sleeve gastrectomy specimen was now removed from the abdomen through the 15 mm port. The fascia at the 15 mm port site was closed with 0-vicryl suture. We checked hemostasis, and the liver retractor and all ports were removed from the abdomen under direct visualization. Skin incisions were closed using 4-0 vicryl, and sterile dressings were placed. The patient tolerated the procedure well without any apparent immediate complications. All needle and sponge counts were correct x2 at the end of the operation, and I was present for all components of the procedure. Discharge Condition: Patient was discharged from the operating room to the next level of care in good condition. All surgical medications, procedures and x-rays performed in surgery-on the order of the operating physicians. Allied Health Professional: Martin Pinedo PA-C assisted in the above procedure. He provided assistance with pre-operative positioning, prepping, and draping of the patient. The store administrative assistant provided vital operative assistance with retraction using instruments thus providing the necessary exposure and visualization for the case, manipulation of tissues to achieve hemostasis, suction for visualization and assisted in closure of the wound. Orlando Jolly MD, FACS [facility] Department of General Surgery N SUPERVISOR documented in this encounter OR Notes H&P - Orlando Jolly MBBS - 08/17/2015 6:59 AM CDT Surgery Update for Preop History and Physical For 08/17/2015 scheduled procedure Reviewed the medical History and Physical/Medications. Not attached - Performed on 08/06/15 (must be within 30 days) which was done by Dr.David Nirmala Matos Update to H&P includes: Patient and/or family denies any health changes since the H&P This patient has been evaluated by me today and has been found to be a suitable candidate for surgery. SARAH Amador 08/17/2015 documented in this encounter Miscellaneous Notes Miscellaneous - 08/19/2015 2:29 PM CDTNotes Recorded by SARAH Amador on 09/11/2015 at 8:22 PMno unexpected findings N SUPERVISOR Medication History - Juanjo Armstrong MD - 08/19/2015 2:29 PM CDT INPATIENT MEDS Encounter Date: 08/08/15 dexamethasone (DECADRON) injection 10 mg Start Date:08/19/15, End Date:08/19/15, Frequency:ONCE Taken Dose Action User Route Site Recorded Comment Reason 08/19/15 1104 10 mg Given Lanette Reyes RN Intravenous - 08/19/15 1107 - - ondansetron (ZOFRAN) injection 4-8 mg Start Date:08/18/15, End Date:08/19/15, Frequency:EVERY 6 HOURS PRN Taken Dose Action User Route Site Recorded Comment Reason 08/18/15 1505 4 mg Given Lanette Reyes RN Intravenous - 08/18/15 1510 - - promethazine (PHENERGAN) tablet 12.5 mg Start Date:08/18/15, End Date:08/19/15, Frequency:EVERY 6 HOURS PRN *No Administrations Recorded acetaminophen (TYLENOL) solution 325-650 mg Start Date:08/18/15, End Date:08/19/15, Frequency:EVERY 4 HOURS PRN Taken Dose Action User Route Site Recorded Comment Reason 08/18/15 215 650 mg Given Noris Eller RN Oral - 08/18/152157 - - 08/18/151737 650 mg Given Lanette Reyes RN Oral - 08/18/151738 - - dexamethasone (DECADRON) injection 10 mg Start Date:08/18/15, End Date:08/18/15, Frequency:ONCE Taken Dose Action User Route Site Recorded Comment Reason 08/18/15 1358 10 mg Given Lanette Reyes RN Intravenous - 08/18/15 1402 - - 0.9% sodium chloride latex free syringe 10-60 mL Start Date:08/18/15, End Date:08/19/15, Frequency:2 TIMES DAILY Taken Dose Action User Route Site Recorded Comment Reason 08/19/15 0800 0 mL Not Given Lanette Reyes RN Intravenous - 08/19/15 0831 - Order parameters not met 08/18/15 2000 10 mL Not Given Noris Eller RN Intravenous - 08/18/152158 - Order parameters not met 0.9% sodium chloride latex free syringe 10-60 mL Start Date:08/18/15, End Date:08/19/15, Frequency:PRN *No Administrations Recorded 0.9% sodium chloride latex free syringe Start Date:08/18/15, End Date:08/18/15, Frequency:- Taken Dose Action User Route Site Recorded Comment Reason 08/18/15 1045 - Given Lanette Reyes RN - - 08/18/15 1106 - - zolpidem (AMBIEN) tablet 10 mg Start Date:08/18/15, End Date:08/19/15, Frequency:AT BEDTIME PRN Taken Dose Action User Route Site Recorded Comment Reason 08/18/15 215 10 mg Given Noris Eller RN Oral - 08/18/152158 - - ondansetron (ZOFRAN) injection 4 mg Start Date:08/17/15, End Date:08/18/15, Frequency:EVERY 6 HOURS Taken Dose Action User Route Site Recorded Comment Reason 08/18/15 0905 4 mg Given Lanette Reyes, TRUDY Intravenous - 08/18/15 0909 - - 08/18/15 0330 4 mg Given Keila Sanders, TRUDY Intravenous - 08/18/15 0330 - - 08/17/15 2117 4 mg Given Keila Sanders, RN Intravenous - 08/17/158 - - 08/17/15 1458 4 mg Given Terell Sullivan, RN Intravenous - 08/17/15 1458 - - simethicone (MYLICON) drops 80 mg Start Date:08/17/15, End Date:08/19/15, Frequency:EVERY 6 HOURS Taken Dose Action User Route Site Recorded Comment Reason 08/19/15 1340 80 mg Given Lanette Reyes, RN Oral - 08/19/15 1340 - - 08/19/15 0644 80 mg Given Noriskuldeep Eller, RN Oral - 08/19/15 0645 - - 08/19/15 0046 80 mg Given Noriskuldeep Eller, RN Oral - 08/19/15 0046 - - 08/18/15 1814 80 mg Given Mavis Leon, RN Oral - 08/18/15 1815 - - 08/18/15 1200 80 mg Not Given Lanette Reyes, RN Oral - 08/18/15 1403 vomiting Other 08/18/15 0613 80 mg Given Keila Sanders, RN Oral - 08/18/15 0616 - - 08/18/15 0019 80 mg Given Keila Sanders, RN Oral - 08/18/15 0020 - - 08/17/15 1856 80 mg Given Lanette Reyes, RN Oral - 08/17/15 1858 - - 08/17/15 1321 80 mg Given Terell Sullivan, TRUDY Oral - 08/17/15 1325 - - oxyCODONE (ROXICODONE) 1 mg/1 mL solution 5-10 mg Start Date:08/17/15, End Date:08/19/15, Frequency:EVERY 4 HOURS PRN *No Administrations Recorded oxyCODONE (ROXICODONE) immediate release tablet 5-10 mg Start Date:08/17/15, End Date:08/19/15, Frequency:EVERY 4 HOURS PRN Taken Dose Action User Route Site Recorded Comment Reason 08/19/15 1339 10 mg Given Lanette Reyes, RN Oral - 08/19/15 1340 - - 08/19/15 0836 10 mg Given Lanette A Amy, RN Oral - 08/19/15 0842 - - 08/19/15 0445 10 mg Given Noris Sago, RN Oral - 08/19/15 0445 - - 08/19/15 0045 10 mg Given Noris Sago, RN Oral - 08/19/15 0046 - - 08/18/15 1956 10 mg Given Noris Sago, RN Oral - 08/18/15 1957 - - 08/18/15 1122 5 mg Given Lanette Reyes, RN Oral - 08/18/15 1123 - - 08/18/15 0614 5 mg Given Keila Sanders, RN Oral - 08/18/15 0616 - - 08/18/15 0217 10 mg Given Keila Sanders, RN Oral - 08/18/15 0219 - - 08/17/15 2121 5 mg Given Keila Sanders, RN Oral - 08/17/15 2135 - - 08/17/15 1856 5 mg Given Lanette Reyes, RN Oral - 08/17/15 1858 - - NO post-op antibiotics needed Start Date:08/17/15, End Date:08/19/15, Frequency:EVERY 24 HOURS Taken Dose Action User Route Site Recorded Comment Reason 08/19/15 1130 - Noted TRUDY Terryc.(Non-Drug; Combo Route) - 08/19/15 1118 - - 08/18/15 1130 - Noted Lanette Reyes RN Misc.(Non-Drug; Combo Route) - 08/18/15 1107 - - 08/17/15 1130 - Noted Terell Sullivan RN Misc.(Non-Drug; Combo Route) - 08/17/15 1136 - - diphenhydrAMINE (BENADRYL) capsule 25-50 mg Start Date:08/18/15, End Date:08/19/15, Frequency:EVERY 6 HOURS PRN *No Administrations Recorded diphenhydrAMINE (BENADRYL) injection 25-50 mg Start Date:08/17/15, End Date:08/19/15, Frequency:EVERY 6 HOURS PRN *No Administrations Recorded omeprazole (PriLOSEC) capsule 20 mg Start Date:08/18/15, End Date:08/19/15, Frequency:DAILY Taken Dose Action User Route Site Recorded Comment Reason 08/19/15 0644 20 mg Given Noris Eller RN Oral - 08/19/15 0644 - - 08/18/15 0700 20 mg Given Lanette Reyes RN Oral - 08/18/15 0710 Given by Keila Sanders RN - LORazepam (ATIVAN) tablet 0.5-1 mg Start Date:08/18/15, End Date:08/19/15, Frequency:EVERY 4 HOURS PRN *No Administrations Recorded LORazepam (ATIVAN) injection 0.5-1 mg Start Date:08/17/15, End Date:08/19/15, Frequency:EVERY 4 HOURS PRN Taken Dose Action User Route Site Recorded Comment Reason 08/18/15 1049 0.5 mg Given Lanette Reyes RN Intravenous - 08/18/15 1055 - - enoxaparin (LOVENOX) injection 40 mg Start Date:08/18/15, End Date:08/19/15, Frequency:DAILY Taken Dose Action User Route Site Recorded Comment Reason 08/19/15 0837 40 mg Given Lanette A Amy, TRUDY Subcutaneous Abdominal Tissue 08/19/15 0842 - - 08/18/15 0905 40 mg Given Lanette Reyes, RN Subcutaneous Abdominal Tissue 08/18/15 0909 - - hyoscyamine (LEVSIN/SL) SL tablet 0.125 mg Start Date:08/17/15, End Date:08/19/15, Frequency:EVERY 4 HOURS PRN Taken Dose Action User Route Site Recorded Comment Reason 08/19/15 0837 0.125 mg Given Lanettemahamed Reyes RN Sublingual - 08/19/15 0842 - - 08/19/15 0446 0.125 mg Given Noris TRUDY Eller Sublingual - 08/19/15 0446 - - 08/18/15 2200 0.125 mg Given Noris Rafita, RN Sublingual - 08/18/15 2201 - - 08/18/15 1815 0.125 mg Given Mavis Leon RN Sublingual - 08/18/15 1816 - - 08/18/15 1054 0.125 mg Given Lanette Reyes RN Sublingual - 08/18/15 1055 - - HYDROmorphone (DILAUDID) injection 0.2-0.3 mg Start Date:08/17/15, End Date:08/19/15, Frequency:EVERY 30 MIN PRN Taken Dose Action User Route Site Recorded Comment Reason 08/18/15 1505 0.3 mg Given Lanette Reyes RN Intravenous - 08/18/15 1510 - - 08/17/15 1532 0.3 mg Given Lanette Reyes RN Intravenous - 08/17/15 1535 - - 08/17/15 1332 0.3 mg Given Lanette Reyes RN Intravenous - 08/17/15 1335 - - NO ketorolac Start Date:08/17/15, End Date:08/19/15, Frequency:EVERY 24 HOURS Taken Dose Action User Route Site Recorded Comment Reason 08/19/15 1130 - Noted Lanette Reyes RN Misc.(Non-Drug; Combo Route) - 08/19/15 1118 - - 08/18/15 1130 - Noted Lanette Reyes RN Misc.(Non-Drug; Combo Route) - 08/18/15 1106 - - 08/17/15 1130 - Noted Terell Sullivan RN Misc.(Non-Drug; Combo Route) - 08/17/15 1136 - - acetaminophen (OFIRMEV) 1,000 mg infusion 100 mL Start Date:08/17/15, End Date:08/17/15, Frequency:EVERY 6 HOURS Taken Dose Action User Route Site Recorded Comment Reason 08/17/15 2238 1,000 mg Infused Keila Sanders RN Intravenous - 08/18/15 0019 - - 08/17/15 2223 1,000 mg Started Keila Sanders RN Intravenous - 08/17/15 2225 - - 08/17/15 1619 1,000 mg Infused Lanette Reyes RN Intravenous - 08/17/15 1750 - - 08/17/15 1604 1,000 mg Started Lanette Reyes RN Intravenous - 08/17/15 1608 - - lactated ringers infusion Start Date:08/17/15, End Date:08/19/15, Frequency:CONTINUOUS Taken Dose Action User Route Site Recorded Comment Reason 08/19/15 0600 75 mL/hr Rate/Dose Change Noris Eller RN Intravenous - 08/19/15 0742 - - 08/19/15 0444 100 mL/hr Started Noris Eller RN Intravenous - 08/19/15 0444 - - 08/18/15 1741 100 mL/hr Started Lanette Reyes RN Intravenous - 08/18/15 1741 - - 08/18/15 0737 100 mL/hr Started Lanette Reyes RN Intravenous - 08/18/15 0739 - - 08/17/15 2116 100 mL/hr Started Keila Sanders RN Intravenous - 08/17/15 2118 - - 08/17/15 1000 100 mL/hr Surgery Terell Sullivan RN Intravenous - 08/17/15 1136 - - simethicone (MYLICON) 125 mg chewable tablet Start Date:08/17/15, End Date:-, Frequency:4 TIMES DAILY *No Administrations Recorded ondansetron (ZOFRAN-ODT) 4 mg disintegrating tablet Start Date:08/17/15, End Date:08/23/15, Frequency:EVERY 8 HOURS PRN *No Administrations Recorded oxyCODONE (ROXICODONE) 5 mg immediate release tablet Start Date:08/17/15, End Date:09/17/15, Frequency:EVERY 4 HOURS PRN *No Administrations Recorded omeprazole (PRILOSEC) 20 mg capsule Start Date:08/17/15, End Date:11/15/15, Frequency:DAILY *No Administrations Recorded acetaminophen (OFIRMEV) 1,000 mg infusion 100 mL Start Date:08/17/15, End Date:08/17/15, Frequency:ONCE Taken Dose Action User Route Site Recorded Comment Reason 08/17/15 0900 1,000 mg Surgery Terell Sullivan RN Intravenous - 08/17/15 1135 - - lidocaine 1% (PF) injection 0.1-0.3 mL Start Date:08/17/15, End Date:08/17/15, Frequency:ONCE *No Administrations Recorded lidocaine 1% (PF) injection 0.1-0.3 mL Start Date:08/17/15, End Date:08/17/15, Frequency:PRN *No Administrations Recorded lactated ringers infusion Start Date:08/17/15, End Date:08/17/15, Frequency:CONTINUOUS *No Administrations Recorded HYDROmorphone (DILAUDID) injection 0.2-0.4 mg Start Date:08/17/15, End Date:08/17/15, Frequency:EVERY 10 MIN PRN *No Administrations Recorded ondansetron (ZOFRAN) injection 4 mg Start Date:08/17/15, End Date:08/17/15, Frequency:EVERY 4 HOURS PRN *No Administrations Recorded prochlorperazine (COMPAZINE) injection 5 mg Start Date:08/17/15, End Date:08/17/15, Frequency:PRN *No Administrations Recorded diphenhydrAMINE (BENADRYL) injection 25 mg Start Date:08/17/15, End Date:08/17/15, Frequency:ONCE PRN *No Administrations Recorded meperidine (DEMEROL) injection 12.5-25 mg Start Date:08/17/15, End Date:08/17/15, Frequency:EVERY 5 MIN PRN *No Administrations Recorded diphenhydrAMINE (BENADRYL) injection 25 mg Start Date:08/17/15, End Date:08/17/15, Frequency:EVERY 6 HOURS PRN *No Administrations Recorded midazolam (VERSED) 1 mg/mL injection 1-2 mg Start Date:08/17/15, End Date:08/17/15, Frequency:EVERY 5 MIN PRN *No Administrations Recorded fentaNYL (SUBLIMAZE) injection 25-50 mcg Start Date:08/17/15, End Date:08/17/15, Frequency:EVERY 5 MIN PRN *No Administrations Recorded fentaNYL (SUBLIMAZE) injection 25-50 mcg Start Date:08/17/15, End Date:08/17/15, Frequency:EVERY 5 MIN PRN *No Administrations Recorded lidocaine 1% (PF) injection 0.1-0.3 mL Start Date:08/17/15, End Date:08/17/15, Frequency:ONCE Taken Dose Action User Route Site Recorded Comment Reason 08/17/15 0545 0.1 mL Surgery Terell Sullivan RN Subcutaneous - 08/17/151136 - - lidocaine 1% (PF) injection 0.1-0.3 mL Start Date:08/17/15, End Date:08/17/15, Frequency:PRN *No Administrations Recorded lactated ringers infusion Start Date:08/17/15, End Date:08/17/15, Frequency:CONTINUOUS Taken Dose Action User Route Site Recorded Comment Reason 08/17/15 0545 25 mL/hr Surgery Terell Sullivan RN Intravenous - 08/17/151136 - - cefOXitin (MEFOXIN) 2 g in 5% dextrose 50 mL IVPB Start Date:08/17/15, End Date:08/17/15, Frequency:ONCE Taken Dose Action User Route Site Recorded Comment Reason 08/17/15 0530 2 g Surgery Terell Sullivan RN Intravenous - 08/17/151136 - - enoxaparin (LOVENOX) injection 40 mg Start Date:08/17/15, End Date:08/17/15, Frequency:ONCE Taken Dose Action User Route Site Recorded Comment Reason 08/17/15 0530 40 mg Surgery Terell Sullivan RN Subcutaneous - 08/17/151136 - - lidocaine 1% (PF) 10 mg/mL (1 %) injection Start Date:08/17/15, End Date:-, Frequency:- *No Administrations Recorded lactated ringers infusion Start Date:08/17/15, End Date:-, Frequency:- *No Administrations Recorded enoxaparin (LOVENOX) 40 mg/0.4 mL injection Start Date:08/17/15, End Date:-, Frequency:- *No Administrations Recorded dexmedetomidine (PRECEDEX) 200 mcg/2 mL injection Start Date:08/17/15, End Date:-, Frequency:- *No Administrations Recorded fentaNYL (SUBLIMAZE) 50 mcg/mL injection Start Date:08/17/15, End Date:-, Frequency:- *No Administrations Recorded midazolam (VERSED) 1 mg/mL injection Start Date:08/17/15, End Date:-, Frequency:- *No Administrations Recorded bupivacaine-epinephrine (SENSORCAINE) 0.5 %-1:200,000 injection Start Date:08/17/15, End Date:-, Frequency:- *No Administrations Recorded cellulose, oxidized (SURGICEL) 4 X 8 hemostat pad Start Date:08/17/15, End Date:-, Frequency:- *No Administrations Recorded thrombin (Human)-fibrinogen-calcium (EVICEL) 800-1,200 unit /mL (1 mL x 2) solution Start Date:08/17/15, End Date:-, Frequency:- *No Administrations Recorded propofol (DIPRIVAN) 10 mg/ml injection Start Date:08/17/15, End Date:-, Frequency:- *No Administrations Recorded anesthesia gas administration Start Date:08/17/15, End Date:-, Frequency:- *No Administrations Recorded dexamethasone (DECADRON) 4 mg/mL injection Start Date:08/17/15, End Date:-, Frequency:- *No Administrations Recorded ondansetron (ZOFRAN) 4 mg/2 mL injection Start Date:08/17/15, End Date:-, Frequency:- *No Administrations Recorded lidocaine 1% 1 % injection Start Date:08/17/15, End Date:-, Frequency:- *No Administrations Recorded succinylcholine (ANECTINE) 140 mg/7 mL (20 mg/mL) injection syringe Start Date:08/17/15, End Date:-, Frequency:- *No Administrations Recorded rocuronium (ZEMURON) 10 mg/mL injection Start Date:08/17/15, End Date:-, Frequency:- *No Administrations Recorded 0.9% sodium chloride solution Start Date:08/17/15, End Date:-, Frequency:- *No Administrations Recorded lactated ringers infusion Start Date:08/17/15, End Date:-, Frequency:- *No Administrations Recorded phenylephrine 0.4 mg in 0.9% sodium chloride syringe 10 ml ADS Med Start Date:08/17/15, End Date:-, Frequency:- *No Administrations Recorded cellulose, oxidized (SURGICEL) 4 X 8 hemostat pad Start Date:08/17/15, End Date:-, Frequency:- *No Administrations Recorded microfibrillar collagen hemostat (INSTAT MCH) 1 gram packet Start Date:08/17/15, End Date:-, Frequency:- *No Administrations Recorded rocuronium (ZEMURON) 10 mg/mL injection Start Date:08/17/15, End Date:-, Frequency:- *No Administrations Recorded glycopyrrolate (ROBINUL) 0.2 mg/mL injection Start Date:08/17/15, End Date:-, Frequency:- *No Administrations Recorded neostigmine (PROSTIGMIN) 5 mg/5 mL (1 mg/mL) injection Start Date:08/17/15, End Date:-, Frequency:- *No AdministrationsRecorded fentaNYL (SUBLIMAZE) 50 mcg/mL injection Start Date:08/17/15, End Date:-, Frequency:- *No Administrations Recorded HYDROmorphone (DILAUDID) 1 mg/mL injection Start Date:08/17/15, End Date:-, Frequency:- *No Administrations Recorded prochlorperazine (COMPAZINE) 10 mg/2 mL (5 mg/mL) injection Start Date:08/17/15, End Date:-, Frequency:- *No Administrations Recorded ondansetron (ZOFRAN) 4 mg/2 mL injection Start Date:08/17/15, End Date:-, Frequency:- *No Administrations Recorded lactated ringers infusion Start Date:08/17/15, End Date:-, Frequency:- *No Administrations Recorded fentaNYL (SUBLIMAZE) 50 mcg/mL injection Start Date:08/17/15, End Date:-, Frequency:- *No Administrations Recorded acetaminophen (OFIRMEV) 1,000 mg/100 mL (10 mg/mL) infusion Start Date:08/17/15, End Date:-, Frequency:- *No Administrations Recorded IP AVS Snapshot - Juanjo Armstrong MD - 08/19/2015 1:58 PM CDT [address] [address] [email or web address] [phone] Jenny Forrest Jiménez About your hospitalization You were admitted on: August 17, 2015 You last received care on: [facility] Schroeder/ZEB You were discharged on: August 19, 2015 Unit phone number: [phone] If you feel worse, call your primary care provider: Raheel Fox MD, Phone number: [phone] Future Appointments 08/23/2015 9:30 AM Appointment with Gloria Augustin RN at [facility] ([phone]) 09/17/2015 10:00 AM Appointment with Amanda Tapia RD at [facility] ([phone]) 09/17/2015 10:30 AM Appointment with Cary Zarate RN at [facility] ([phone]) Following is your updated medication list ?? This updated medication list is based on the information you provided us and changes your doctormade to your medications during your hospital stay. ?? Compare this updated medication list with the labels on your prescription medications at home. Besure you are taking the medication your doctor is now prescribing. Your prescriptions may have changed while you were in the hospital. ?? If you have any questions or concerns, contact your primary care doctor's office. Your Medications START taking these medications Quantity & Refills Last Dose Given omeprazole 20 mg capsule Take 1 capsule by mouth daily (every 24 hours) for 90 days. Commonly known as: PriLOSEC Quantity: 90 capsule Refills: 0 08/19/2015 6:44 AM ondansetron 4 mg disintegrating tablet Take 1 tablet by mouth every 8 hours as needed for Nausea or Vomiting. Dissolve tablet on tongue Commonly known as: ZOFRAN-ODT Quantity: 30 tablet Refills: 0 oxyCODONE 5 mg immediate release tablet Take 1-2 tablets by mouth every 4 hours as needed for Pain. Commonly known as: ROXICODONE Quantity: 30 tablet Refills: 0 08/19/2015 1:39 PM simethicone 125 mg chewable tablet Take 1 tablet by mouth 4 times daily. Commonly known as: MYLICON Quantity: 120 tablet Refills: 2 CONTINUE these medications Quantity & Refills Last Dose Given acetaminophen 325 mg tablet Take 325-650 mg by mouth every 4 hours as needed for Pain. Maximum 4000mg per 24 hours Commonly known as: TYLENOL Refills: 0 zolpidem 10 mg tablet Take 10 mg by mouth at bedtime as needed for Sleep. 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 You received printed prescriptions for the following medications or they are available over the counter. You may pick them up at any pharmacy: - omeprazole 20 mg capsule - ondansetron 4 mg disintegrating tablet - oxyCODONE 5 mg immediate release tablet - simethicone 125 mg chewable tablet Instructions for after Discharge Activity Instuctions Resume your usual activities as you feel comfortable. Diet Instructions Follow these diet instructions: Bariatric clear liquids until first follow up appointment with nurse clinician. Bariatric clear liquids until first follow up appointment with nurse clinician. Wound Care Instructions Do not soak in a bath tub, hot tub or pool until your incisions are completely healed. It is OK to get your incision wet. Leave your Steri-Strips on your incision until they come loose in about 7 to 10 days. You may shower. Other Instructions Call your bariatric surgeon's office at [phone] if you have any of the following symptoms: ??? Fever of 101??F (38??C) or higher ??? Persistant nausea or vomiting ??? Abdominal pain ??? Shortness of breath ??? Calf tenderness or swelling Do not drink alcohol for 24 hours. Do not drink alcohol or make any major decisions, such as signing important papers or managing legal issues, while taking prescription pain medication. Do not drive or operate heavy equipment for at least 24 hours. Do not make any major decisions, such as signing important papers or managing legal issues, for 24 hours. Education Information provided: Bariatric Discharge Summary Instructions If you have questions or concerns, call [phone] to speak with a bariatric surgery nurse clinician. You must be accompanied by a responsible adult trash collector truck driver at the time you are discharged. Hold all vitamins and supplements until directed at your follow-up visit. Do not take NSAIDs which include ibuprofen, advil, aleve after bariatric surgery. If you have post-op difficulties and need to go to an Emergency Room please present to [facility]. Wear abdominal binder when out of bed for one week after surgery. Then may continue to wear binder as needed for comfort. Summary of your Hospitalization Why you were hospitalized Health issues addressed in thehospital: Laparoscopic vertical sleeve gastrectomy Morbid obesity with BMI of 40.0-44.9, adult (C) Chronic low back pain Physicians who cared for you during your hospitalization Provider Role SARAH Amador Attending Provider You are allergic to the following Date Reviewed: 08/17/2015 No active allergies ` Nurse Signature: Date: Physician electronic signature Patient Signature: Date: Your medications For your own use Morning Noon Evening Bedtime acetaminophen 325 mg tablet Commonly known as: TYLENOL omeprazole 20 mg capsule Commonly known as: PriLOSEC Take 1 capsule by mouth daily (every 24 hours) for 90 days. ondansetron 4 mg disintegrating tablet Commonly known as: ZOFRAN-ODT Take 1 tablet by mouth every 8 hours as needed for Nausea or Vomiting. Dissolve tablet on tongue oxyCODONE 5 mg immediate release tablet Commonly known as: ROXICODONE Take 1-2 tablets by mouth every 4 hours as needed for Pain. simethicone 125 mg chewable tablet Commonly known as: MYLICON Take 1 tablet by mouth 4 times daily. zolpidem 10 mg tablet Commonly known as: AMBIEN documented in this encounter Plan of Treatment Not on filedocumented as of this encounter Procedures Procedure Name Priority Date/Time Associated Comments Diagnosis HEMOGLOBIN, BLOOD Specified Time 08/18/2015 6:16 Resul ts for this AM CDT procedure are i n the results section. HEMOGLOBIN, BLOOD Specified Time 08/17/2015 3:00 Resul ts for this PM CDT procedure are i n the results section. SURGICAL PATH, Routine 08/17/2015 7:00 Results fo r maddie ESCOTOET AM CDT procedure are in the results section. DRAW & HOLD - STAT 08/17/2015 5:57 Results for this INPATIENT ONLY AM CDT procedure are in the results section. HEMOGLOBIN, BLOOD STAT 08/17/2015 5:57 Results for this AM CDT procedure are i n the results section. BEDSIDE GLUCOSE Routine 08/17/2015 5:42 Results f or this MONITOR POCT AM CDT procedure are i n the results section. MRSA CULTURE Routine 08/17/2015 5:37 Results for this AM CDT procedure are i n the results section. documented in this encounter Results Hemoglobin, Blood (08/18/2015 6:16 AM CDT) athologist Signature Hemoglobin 12.7 11.8 - 15.5 HP CONVERSION g/dL Specimen Anatomical Collection Method Collection Time Receive d Time (Source) Location / / Volume Laterality 08/18/2015 6:16 AM 6 6:29 CDT AM CDT Narrative HP CONVERSION - 08/18/2015 6:41 AM CDT Performed at [address] [address] CLIA number [id number] Martin Pinedo PA-C LAB_1 Performing Organization Address City/State/ZIP Code Phon e Number HP CONVERSION Hemoglobin, Blood (08/17/2015 3:00 PM CDT) athologist Signature Hemoglobin 13.8 11.8 - 15.5 HP CONVERSION g/dL Specimen Anatomical Collection Method Collection Time Receive d Time (Source) Location / / Volume Laterality 08/17/2015 3:00 PM 6 3:16 CDT PM CDT Narrative HP CONVERSION - 08/17/2015 3:20 PM CDT Performed at [facility], [address] [place] [address] CLIA number [id number] Martin Pinedo PA-C LAB_1 Performing Organization Address City/State/ZIP Code Phon e Number HP CONVERSION Pathology Report (08/17/2015 7:00 AM CDT) [facility] Method Time Signature Path: FINAL SURGICAL PATHOLOGY REPORT HP CONVERSION Pathology #: [id number] ? Date Obtained: 08/17/2015 ?Date Received: 08/17/2015 DIAGNOSIS: Stomach, vertical sleeve partial gastrectomy: - No diagnostic abnormality identified ? Kay WILSON ? (electronic signatur e) ? 08/20/2015 ??11:0 9 CLINICAL NOTES: Morbid obesity ORGAN/TISSUE SITE: Gastric remnant GROSS DESCRIPTION: The specimen is received fresh labeled gastric remnant and consists of a segment of stomach measuring 20 x 4.5 x 4.5 cm. ??The sto mach is opened to reveal grossly unremarkable dark red, rugous muco sa. ??No lesions or polyps are grossly identified. ??Physical Education Teacher sections are submitted in 2 blocks. ? WEYAL MICROSCOPIC DESCRIPTION: Microscopic examination performed. Performed at [facility], [facility] [place] [address] Specimen Anatomical Collection Method Collection Time Receive d Time (Source) Location / / Volume Laterality STOMACH STRUCTURE 08/17/2015 7:00 AM 08/04 7:00 / Unknown CDT AM CDT Transcriptions 08/19/2015 2:29 PM CDTNotes Recorded by SARAH Amador on 09/11/2015 at 8:22 PMno unexpected findings [place] [facility] LAB_1 Performing Organization Address [facility] Phon e Number HP CONVERSION Hemoglobin, Blood (08/17/2015 5:57 AM CDT) athologist Signature Hemoglobin 13.9 11.8 - 15.5 HP CONVERSION g/dL Specimen Anatomical Collection Method Collection Time Receive d Time (Source) Location / / Volume Laterality 08/17/2015 5:57 AM 6 6:26 CDT AM CDT Narrative HP CONVERSION - 08/17/2015 6:32 [place] [address] CLIA number [id number] [place] [facility] LAB_1 Performing Organization Address [facility] Phon e Number HP CONVERSION DRAW & HOLD - INPATIENT ONLY (08/17/2015 5:57 AM CDT) athologist Signature Draw And Hold REC'D HP CONVERSION Specimen Anatomical Collection Method Collection Time Receive d Time (Source) Location / / Volume Laterality 08/17/2015 5:57 AM 6 6:25 CDT AM CDT Narrative HP CONVERSION - 08/17/2015 6:53 AM CDT Performed at [facility], [address] [place] [address] CLIA number [id number] [place] [facility] PN BLOOD BANK ORDERS Performing Organization Address [facility] Phon e Number HP CONVERSION BEDSIDE GLUCOSE MONITOR (08/17/2015 5:42 AM CDT) athologist Signature Bedside Blood 90 mg/dL HP CONVERSION Glucose Test Comment: Performed at [facility] [place] [address] Specimen Anatomical Collection Method Collection Time Receive d Time (Source) Location / / Volume Laterality 08/17/2015 5:42 AM 6 6:15 CDT AM CDT [place] [facility] Performing Organization Address City/State/ZIP Code Phon e Number HP CONVERSION MRSA Culture (08/17/2015 5:37 AM CDT) [facility] gist Method Time Signature Source Nares HP CONVERSION Site HP CONVERSION Culture Mrsa No Methicillin HP CONVERSIO N Screen Resistant Staph aureus Isolated Specimen (Source) Anatomical Collection Method Collection Time Re ceived Time Location / / Volume Laterality Nares: 08/17/2015 5:37 AM CDT Narrative HP CONVERSION - 08/18/2015 12:01 PM CDT Performed at [address] [address], CLIA Number [id number] [place] [facility]_1 Performing Organization Address City/[facility]/ZIP Code Phon e Number HP CONVERSION documented in this encounter Visit Diagnoses Not on filedocumented in this encounter Care Teams Manager Knowledge Relationship Specialty Start Date End Date Raheel Fox MD PCP - General 10/17/[address] [place] [address] documented as of this encounter
--- OUTSIDE RECORDS SUMMARY | 2022-01-15 13:33 | XMS_ITS | Encounter Summary ---
:1980 Author Organization [email or web address] Address [address] [place] [address] Care Team Providers Name Role Phone Raheel Silvestre MD Primary Care Provider Reason for Referral Procedure/Equipment (Routine) - New Request Specialty Diagnoses / Procedures Referred By Contact Refer red To Contact Diagnoses Dysphagia, unspecified type Vomiting, intractability of vomiting not specified, presence of nausea not specified, unspecified vomiting type Gastroesophageal reflux disease, unspecified whether esophagitis present Kathryn Mccormick, Procedures EGD PA-C [address] [address] Referral ID Status Reason Start Date Expiration Date Visits V isits Requested Authorized [id number] New Request 02/08/2021 05/10/2022 1 1 Procedure/Equipment (Routine) - Incomplete Specialty Diagnoses / Procedures Referred By Contact Refer red To Contact Diagnoses Dysphagia, unspecified type Vomiting, intractability of vomiting not specified, presence of nausea not specified, unspecified vomiting type Gastroesophageal reflux disease, unspecified whether esophagitis present Kathryn Mccormick, Procedures [place] UGI Routine PA-C [address] [address] Referral ID Status Reason Start Date Expiration Date Visits V isits Requested Authorized [id number] Incomplete 02/08/2021 05/10/2022 1 1 Reason for Visit Reason Comments CONSULT BOT Encounter Details Date Type Department Care Team Description 02/08/2021 Office Visit [facility] Bariat[facility], Morbid obesit y with BMI of 40.0-44.9, adult (HRC) (Primary Dx); Surgery & Weight FRANCA Hidalgo Status post bariatric surgery; Center [address] [address] Intestinal malabsorption, unspecified ty pe; [address] PORTER, PRANEETH Personal history of endocrine disorder; [id number] Dysphagia, unspecified type; [facility], Vomiting, intractability of vomiting not specified, presence of nausea not specified, unspecified vomiting type; [place] [address] (Work) Gastroesophageal reflux disease, unspeci fied whether esophagitis present [phone] Social History Tobacco Use Types Packs/Day Years [...] Pulse 73 02/08/2021 9:50 AM CDT Temperature - - Respiratory Rate - - Oxygen Saturation - - Inhaled Oxygen Concentration - - Weight 101.4 kg (223 lb 8 oz) 02/08/2021 9:44 AM CDT Height 166.4 cm (5' 5.5) 02/08/2021 9:44 AM CDT Body Mass Index 36.63 02/08/2021 9:44 AM CDT documented in this encounter Patient Instructions Patient InstructionsKathryn Mccormick PA-C - 02/08/2021 9:30 AM CDT Lab Instructions (to be put in AVS) Please follow the following instructions prior to having your labs drawn: 1. No vitamins or supplements for 24 hours prior to the test 2. No alcohol for 24 hours prior to the test 3. No food or drink (other than water or plain, black coffee) for 12 hours prior to the test. You may call [phone] to schedule a lab appointment at the [facility] lab nearest you. Scheduled appointments are preferred; however, walk-ins are also accepted. The [place] location is open Saturdays. Usual Vitamin Supplementation after Bariatric Surgery: - Multivitamin daily - Vitamin D3, 2,000 IU daily - Calcium Citrate, 600 mg twice daily - Vitamin B12, 1000mcg sublingual (dissolved under the tongue) once weekly documented in this encounter Progress Notes Kathryn Mccormick PA-C - 02/08/2021 9:30 AM CDT [facility]: [id number] Post-Surgery Follow-up CHIEF COMPLAINT: Weight regain HISTORY OF PRESENT ILLNESS/INTERIM HISTORY: 40 y.o. year-old female comes in today to address weight regain after having a VSG in 08/17/2015, performed at [facility]. Pre-surgery weight was 281. Post-surgery low was 176. Current weight is 223. Patient's goal weight is 160. Patient would not be disappointed with weight loss achieving a final weight of 180. Medical conditions that resolved or improved after surgery include the following: heartburn (improved, not resolved), back pain, energy, knee pain Medical conditions that have worsened since weight regain include the following: heartburn, low energy, not feeling well, harder to walk due to knee pain Did have h/o iron infusions 1-2 years ago due to anemia. Patient attributes regain to the following: change in eating habits, reintroduced soda. Currently on prednisone for neck injury (whiplash). On methotrexate for an autoimmune eye condition. Modifying and Exacerbating Factors: Average number of meals per day: no set meals - grazing through the day Snacks per day: continuous nibbling Hard to find time to dedicate to a meal Volume of food eaten at each meal: not measuring Protein consumed at each meal: not measuring, but eats protein first, estimates 70-80 g per day Refraining from liquids for 30 minutes before meals, during meals, and 30 minutes after meals?: NO Foods that are not tolerated: red sauce (heartburn), high sugar foods Is dumping syndrome occurring: with high sugar foods, so avoids these Sugar-sweetened beverage intake: no Drinks coffee with almond milk (sweetened) Binges: yes infrequent - 1 time per month; ?menstrual, stress related? has had a lot to deal with the last 2 years personally and professionally Cravings: yes pizza - but doesn't eat it Stress/emotions : yes on fluoxetine for anxiety/depression/stress Adequate sleep no 4-6 hours per night, takes sleep aid sleep apnea: no using CPAP no (no sleep study, doesn't snore, but her snores and uses CPAP) Exercise routine yes walking daily, 2-3 miles, gardening, yard work (lives [place] acres [place] land), active 2-3 hours per day Context Family issues yes Work/school issues: yes Appropriate foods available: yes Access to exercise: yes PAST MEDICAL HISTORY: Past Medical History: Diagnosis Date ??? 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 Low back pain (HIGH RISK) ??? Morbid obesity (HRC) ??? Obesity (HIGH RISK) ??? Retinal vascular changes Current Problems: Patient Active Problem List Diagnosis ??? Morbid obesity with BMI of 40.0-44.9, adult (HRC) ??? Chronic low back pain (HRC) ??? Bariatric surgery status MEDICATIONS: Outpatient Medications Prior to Visit Medication Sig Dispense Refill ??? acetaminophen (TYLENOL) 325 MG tablet Take 325-650 mg by mouth every 4 hours as needed for Pain.Maximum 4000mg per 24 hours ??? Calcium Citrate (CALCITRATE) 950 MG tablet Take 1 tablet by mouth 2 times daily. Indications: HYPOCALCEMIA PREVENTION ??? cholecalciferol (VITAMIND3) 2000 UNITS tablet Take 1 tablet by mouth daily (every 24 hours). Indications: PREVENTION OF VITAMIN D DEFICIENCY ??? cyanocobalamin (VITAMIN B12) [address] 1,000 mcg under the tongue once a week. Indications: PREVENTION OF VITAMIN B12 DEFICIENCY ??? FLUoxetine (PROZAC) 40 MG capsule Take 40 mg by mouth daily. ??? Methotrexate 12.5 MG/0.5ML SOSY ??? omeprazole (PRILOSEC) 20 MG capsule Take 20 mg by mouth daily before breakfast. 1-2 times daily ??? pediatric multiple vitamin-iron (FRUITY CHEWS/IRON) chew tablet Take 1 tablet by mouth daily (every 24 hours). Indications: MINERAL DEFICIENCY PREVENTION, VITAMIN DEFICIENCY PREVENTION ??? predniSONE (DELTASONE) 20 MG tablet ??? zolpidem (AMBIEN) 10 MG tablet Take 10 mg by mouth at bedtime as needed for Sleep. ??? simethicone ([employer] GAS RELIEF EXTRA STRENGTH) 125 MG chewable tablet Take 1 tablet by mouth 4 times daily. 120 tablet 2 No facility-administered medications prior to visit. ALLERGIES: No Known Allergies SOCIAL HISTORY: Social History Tobacco Use ??? Smoking status: Former Smoker Quit date: 01/05/2008 Years since quittin.1 ??? Smokeless tobacco: Never Used ??? Tobacco comment: quit january 7 years ago. Substance Use Topics ??? Alcohol use: Yes Comment: 1-2 per week REVIEW OF SYSTEMS: Mood: stable Back pain: yes Other joint pain: yes knees Taste Aversion: no Pain with Eating: no Sensation of food sticking: yes behind sternum Frequent vomiting: yes can occur during sleep due to reflux. 1-3 times per week. sometimes will takean extra omeprazole. if she has the sensation during the day, she can avoid vomiting. pain and pressure in the abdomen/epigastrium. burning in chest Heartburn: yes daily, despite omeprazole Frothing: no Bloating: yes Constipation: yes Diarrhea: yes Increased hunger:yes Increased food cravings: yes . PHYSICAL EXAM: VITAL SIGNS: BP 114/67 (BP Location: Left Arm, BP Cuff Size: Regular - Long) Pulse 73 Ht 5' 5.5(166.4 cm) Wt 223 lb 8 oz (764147 g) BMI 36.63 kg/m?? Estimated body mass index is 36.63 kg/m?? as calculated from the following: Height as of this encounter: 5' 5.5 (166.4 cm). Weight as of this encounter: 223 lb 8 oz (681907 g). Wt Readings from Last 3 Encounters: 02/08/21 223 lb 8 oz (379296 g) 11/02/15 220 lb (72134 g) 11/02/15 220 lb 1.6 oz (46171 g) GENERAL: The patient appears in no acute distress. PSYCHIATRIC: Alert and oriented x 3. Affect is appropriate. Labs: I reviewed the patient's labs and note the following: n/a ASSESSMENT/PLAN: ICD-10-CM 1. Morbid obesity with BMI of 40.0-44.9, adult ([facility]) E66.01 Complete Blood Count-No Diff Z68.41 B12 ONLY IRON PROFILE (IRON,TIBC,%SAT.(CALC)) FERRITIN Vitamin D 25-Hydroxy, Total Intact PTH Calcium PREALBUMIN Hgb A1C Vitamin B6 (8Hr Fast Recommended) Vitamin B1, Blood Folate Only (4Hr Fast Recommended) Creatinine / GFR Aspartate Aminotransferase (AST) Alanine Aminotransferase (ALT) 2. Status post bariatric surgery Z98.84 Complete Blood Count-No Diff B12 ONLY IRON PROFILE (IRON,TIBC,%SAT.(CALC)) FERRITIN Intact PTH Calcium PREALBUMIN Folate Only (4Hr Fast Recommended) 3. Intestinal malabsorption, unspecified type K90.9 Complete Blood Count-No Diff B12 ONLY IRON PROFILE (IRON,TIBC,%SAT.(CALC)) FERRITIN Vitamin D 25-Hydroxy, Total Intact PTH Calcium PREALBUMIN Folate Only (4Hr Fast Recommended) 4. Personal history of endocrine disorder Z86.39 Vitamin D 25-Hydroxy, Total 5. Dysphagia, unspecified type R13.10 FL UGI Routine EGD 6. Vomiting, intractability of vomiting not specified, presence of nausea not specified, unspecifiedvomiting type R11.10 FL UGI Routine EGD 7. Gastroesophageal reflux disease, unspecified whether esophagitis present K21.9 FL UGI Routine EGD UGI and EGD to assess dysphagia and vomiting and intractable GERD. Refer to dietitian to get back on track with bariatric nutrition guidelines. Discussed possibility of conversion of VSG to RNY. Plan for management includes the following: -Nutrition: Continue to focus on 3 meals daily high in protein, with volumes less than 1 C per meal. No liquids 30 minutes before, during, or 30 minutes after meal. If insulin resistance, the caloriesthat are removed compared to current intake should come from carbohydrate sources. Meet with nutrition Yes . -Exercise: Continue to work towards 150 minutes moderate intensity exercise per week. -Medications: Restart bariatric vitamins: calcium citrate 500 mg BID, vitamin D3 2000 IU qd, Multivitamin with iron qd, Vitamin B12 1000 mcg SL q week. Refer to psychology for emotionally dysregulated eating We will work together on weight loss to improve the obesity-associated medical conditions listed below. Follow up with me: in 2 months. Total time 60 minutes, spent discussing physiology of obesity, lifestyle interventions for management including post-surgical dietary guidelines, current medications available for weight loss, and possible medications for future use (including expectations for weight loss, side effects, and off-label use in some cases). Kathryn Mccormick PA-C documented in this encounter Nursing Notes Oliva Cabello RN - 02/08/2021 9:30 AM CDT Standard rooming via telephone with follow up SmartForm completed. Last seen on 11/02/15 with TRUDY Townsend with recorded weight of 220 lbs. Weight History: Bariatric Weight History and Calculations Weight History Current Weight: 223 lb 8 oz Height (in): 65.5 Weight Calculations Goal Weight: 136 lb 4 oz Current BMI: 36.2532818471202 Measurements Do you have a scale? YES - 223.5 lb. Do you have a BP cuff? YES - in clinic: 128/71 Eating patterns Patient is experiencing the following symptoms/problems: Bloating, Constipation, Diarrhea, Emotional Eating, GERD/Heartburn, Mood Changes, Increased Hunger Medications: Compliance: YES Side effects: NO Would like to discuss: Indigestion. Gas, bloating. Vomitin-4 times per week due to indigestion. Takes Omeprazole 20 mg 1-2 times daily, mints, Tums- helps, but still occurs everyday. Weight gain. Oliva Cabello RN 9:46 AM 02/08/2021 documented in this encounter Plan of Treatment Scheduled Orders Name Type Priority Associated Diagnoses Order S chedule FL UGI Routine Imaging New Routine Dysphagia, unspecified Exp ected: 02/08/2021 type (Approximate), Expires: Vomiting 02/08/2022 Gastroesophageal reflux disease, unspecified whether esophagitis present EGD GI Routine Dysphagia, unspecified 1 Occ urrences starting type 02/08/2021 Vomiting Gastroesophageal reflux disease, unspecified whether esophagitis present documented as of this encounter Visit Diagnoses Diagnosis Morbid obesity with BMI of 40.0-44.9, ad ult (HRC) - Primary Status post bariatric surgery Bariatric surgery status Intestinal malabsorption, unspecified ty pe Personal history of endocrine disorder Personal history of other endocrine, met abolic, and immunity disorders Dysphagia, unspecified type Vomiting, intractability of vomiting not specified, presence of nausea not specified, unspecified vomiting type Gastroesophageal reflux disease, unspeci fied whether esophagitis present documented in this encounter Care Teams Behaviorist Relationship Specialty Start Date End Date Raheel Silvestre MD PCP - General 10/[address] [place] [address] documented as of this encounter
--- OUTSIDE RECORDS SUMMARY | 2022-01-15 13:34 | XMS_ITS | Encounter Summary ---
:1980 Author Organization [employer] Address [address] [place] [address] Care Team Providers Name Role Phone Raheel Silvestre MD Primary Care Provider Reason for Visit Reason Comments Other Encounter Details Date Type Department Care Team Description 12/21/2014 Hospital Encounter [facility] Physical deconditioning (Primary Dx); Physical Therapy Morbid obes ity due to excess calories [facility] [address] [place] [address] Social History Tobacco Use Types Packs/Day Years Used Date Smoking Tobacco: Never Assessed Sex Assigned at Date Recorded Not on file documented as of this encounter Medications at Time of Discharge Medication Sig Dispensed Refills Start Date End Date acetaminophen Take 325-650 mg by 0 11/28/2014 (TYLENOL) 325 MG mouth every 4 hours as tablet needed for Pain. Maximum 4000mg per 24 hours zolpidem (AMBIEN) 10 Take 10 mg by mouth at 0 MG tablet bedtime as needed for Sleep. cholecalciferol 60974 Take 1 capsule by mouth 8 capsule 0 0 12/21/2014 08/17/2015 UNITS once a week for 60 capsuleIndications: days. Vitamin D deficiency (HRC) cholecalciferol (AKA Take 1 tablet by mouth 0 04/201408/17/2015 VITAMIN D3) 2000 UNITS daily (every 24 hours). tablet Indications: PREVENTION OF VITAMIN D DEFICIENCY ibuprofen (AKA MOTRIN) Take 200 mg by mouth 0 06/27/2015 200 MG tablet every 6 hours as needed for Pain. metroNIDAZOLE (AKA Apply topically 2 times 0 04/201408/15/2015 METROGEL) 0.75 % gel daily. minocycline (AKA Take 100 mg by mouth 0 08/17/2015 MINOCIN) 100 MG daily (every 24 hours). capsule Indications: SKIN AND SKIN STRUCTURE INFECTION Multiple Take 1 tablet by mouth 0 12/05/2014 Vitamins-Minerals daily (every 24 hours). (MULTIVITAMINS) CHEW Indications: VITAMIN DEFICIENCY PREVENTION omeprazole (PRILOSEC) Take 20 mg by mouth 0 12/0506/27/2015 20 MG capsule daily (every 24 hours). Indications: GASTROESOPHAGEAL REFLUX documented as of this encounter Progress Notes Nai Dalton, PT - 12/21/2014 12:23 PM CDT Date of Service: 12/21/2014 Pt : 1980 [facility] [place] Physical Therapy - Evaluation/Plan of Care Bariatric Initial Certification Period: 12/21/2014 to 03/21/15 Referring Provider: Raheel Silvestre Visit Diagnosis: Diagnosis (ICD9) ICD-9-CM ICD-10-CM 1. Physical deconditioning 799.3 R53.81 2. Morbid obesity due to excess calories (HIGH RISK) [278.01] 278.01 E66.01 Precautions: bulging disc in L4-5 Orders: Evaluate and treat. Onset/Referral Date: 12/05/2014 SUBJECTIVE Reason for Visit: Patient presents to Physical Therapy today for an exercise evaluation for the Bariatric program. Patient currently has difficulty with putting shoes on, getting dressed and doing any type of bending movement due to bulging disc (L4-5) and her size, keeping up with 3 kids (ages 14, 9,& 3), stairclimbing gets short of breath and has some low back pain, likes to do yardwork but has been limited due to pain in her back. Patient Therapy Goals: Self management through education Complete ADL's without difficulty: getting dressed, tying her shoes -Be able to run 1 mile -Be able to keep up more with her 3 kids- her oldest child is very active and involved in many sports Past Medical History and allergies: Patient has a current medication list which includes the following prescription(s): acetaminophen, cholecalciferol (vitamin d3), ibuprofen, metronidazole, minocycline, omeprazole, pediatric multivitamin, and zolpidem. Patient has a past medical history of Obesity (HIGH RISK); Low back pain (HIGH RISK); and Retinal vascular changes. Medications pertinent to therapy: acetaminophen Pain: Location: back - L4-5 Radiation?: yes - down bilateral legs R >L. Loss of bowel/urine control? 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 Plans to get a membership to a fitness center again OBJECTIVE General: Pleasant & cooperative and Motivated/willing to prioritize exercise Gross ROM: Impaired - slight decreased in overhead arm motions due to feeling a pulling in her lowback Gross Muscle Strength: Not assessed Today's Intervention: Aerobic Capacity/Endurance: Modality Time BP SAT% HR LPM Comments PB RPE Rest 114/68 97% 84 Arm Calisthenics with 0 pounds 4 min 97% 98 12 12 6 minute walk 6 min 128/66 95% 112 Distance: 1350 feet 2.5 MPH 0 Rest stops Assistive Device: no assistive device --4-5/10 low back pain 12 13 Lower Extremity Stretches (Quadriceps, Hamstrings, Plantar Flexors) 5 min Recovery 97% 85 BP cuff: Large cuff, right Education: Activity guidelines: aerobic, flexibility, strengthening. Self assessment skills: Heart rate guidelines 60-80% of maxmum heart rate. (111-148 bpm) Instructed in and had patient demonstrate pulse taking. Pain management icing, frequent position changes throughout the day Advised patient on alternative modes of exercise for pain management. seated options, pool Rating of perceived breathlessness and rating of perceived exertion scales Home Exercise Program: Upper extremity toning exercises. Add weights in 1 lb. increments as able. Endurance exercises: Encouraged patient to continue walking, any continuous movement activity for 15-20 continuous minutes per day, 3-5 times per week. Progress to 30+ minutes per day, 5-7 times a week. Once frequency and duration goal have been met, patient to work on gradually building intensity asable and within instructed guidelines. Stretches - Quadriceps, Hamstrings, Plantar flexors after endurance exercise. Hand outs provided for all education and Home Exercise Program discussed above. Procedures: Physical therapy evaluation Therapeutic Exercise 15 minutes: Instructed and performed ther ex described above in grid. Total ther ex time includes set up, instruction and monitoring. ADL/Self management 15 minutes. Timed Code Treatment Minutes: 30 Total Treatment Minutes: 60 ASSESSMENT Therapist Impression/Summary: Patient is a good exercise candidate, but team should be aware of potential problems lumbar disc bulge at L4-5. Recommendations: Follow up with primary MD about clinic PT referral Significant Impairments: Pain, Decreased endurance, Shortness of breath, Decreased strength, Lack ofknowledge of appropriate exercise guidelines Functional Limitations: No personalized home program and exercise strategies. Difficulty with ADL's. Difficulty with keeping pace with children. Difficulty with completing yard work. Goals expected after 1-3 more PT sessions: ?? Pt to demonstrate understanding of home exercise program, activity guidelines and self assessmentskills. ?? Pt. to tolerate 30 minutes of continuous walking. ?? Pt. to demonstrate compliance with a HEP that consists of 30 minutes of continuous aerobic exercise, 3-5 x/week initially with the nursing home goal of 5-7/week. ?? Pt. to express confidence in various exercise equipment options (treadmill, nordic poles, possible seated option) ?? Pt. to express confidence in a basic strengthening routine. Goal expected through participation in HEP: see above under patient goals Barriers to Goal Achievement or Learning: none Prognosis: fair PLAN Plan: See pt. for 1-3 more visits to advance and further solidify home exercise program. Instruct pt. in a basic strengthening routine. Arm cals with 0#, Treadmill: warm up/cooldown at 1.8 mph, train at 2.1 mph for to tolerance; Try NuStep or recumbent bike for remainder of the time to reach 30 minutes of aerobic exercise. Instruct in a general strengthening routine. LE stretches. Review education asneeded. Informed Consent: The patient was educated on the condition, planned therapy intervention and expectations from treatment. Goals were a collaborative effort of the therapist and patient. Risks, benefits, and alternatives to treatment have been explained. Patient and/or family in agreement with the care plan. The artificial inseminator is completed by the therapist and the referring clinician's electronic signature certifies medical necessity for the plan above. Nai Dalton, PT 12:23 PM 12/21/2014 documented in this encounter Plan of Treatment Not on filedocumented as of this encounter Visit Diagnoses Diagnosis Physical deconditioning - Primary Debility, unspecified Morbid obesity due to excess calories ([facility]) documented in this encounter Care Teams Security Threat Analyst Relationship Specialty Start Date End Date Raheel Silvestre MD PCP - General [address] [place] [address] documented as of this encounter
--- OUTSIDE RECORDS SUMMARY | 2022-01-15 13:34 | XMS_ITS | Encounter Summary ---
:1980 Author Organization [facility] Address [address] [place] [address] Care Team Providers Name Role Phone Unavailable Primary Care Provider Unavailable Encounter Details Date Type Department Care Team Description 02/14/2021 Orders Only [facility] PCP TH Sa lubna Azul M.D. [address] [place], [place] [phone] (Wo rk) Social History Tobacco Use Types Packs/Day Years Used Date Smoking Tobacco: Former Sex Assigned at Date Recorded Not on file documented as of this encounter Plan of Treatment Not on filedocumented as of this encounter Visit Diagnoses Not on filedocumented in this encounter
--- OUTSIDE RECORDS SUMMARY | 2022-01-15 13:34 | XMS_ITS | Encounter Summary ---
:1980 Author Organization [facility] Address [address] [place] [address] Care Team Providers Name Role Phone Unavailable Primary Care Provider Unavailable Encounter Details Date Type Department Care Team Description 10/28/2011 Hospital Encounter HX NO MAPPING Thomas Crawford Jr., M.D. [address] [phone] (Wo rk) Social History Tobacco Use Types Packs/Day Years Used Date Smoking Tobacco: Never Assessed Sex Assigned at Date Recorded Not on file documented as of this encounter Plan of Treatment Not on filedocumented as of this encounter Visit Diagnoses Not on filedocumented in this encounter
--- OUTSIDE RECORDS SUMMARY | 2022-01-15 13:34 | XMS_ITS | Encounter Summary ---
:1980 Author Organization [facility] Address [address] [place] [address] Care Team Providers Name Role Phone Unavailable Primary Care Provider Unavailable Encounter Details Date Type Department Care Team Description 11/07/2011 Hospital Encounter HX [facility] Michael Monae M .D. Social History Tobacco Use Types Packs/Day Years Used Date Smoking Tobacco: Never Assessed Sex Assigned at Date Recorded Not on file documented as of this encounter Last Filed Vital Signs Vital Sign Reading Time Taken Comments Blood Pressure 118/62 11/07/2011 3:09 PM CDT Pulse - - Temperature - - Respiratory Rate - - Oxygen Saturation - - Inhaled Oxygen Concentration - - Weight 123 kg (271 lb 6.2 oz) 11/07/2011 3:09 PM CDT Height - - Body Mass Index - - documented in this encounter Consult Notes Michael Monae M.D. - 11/07/2011 12:00 AM CDT [id number] CHIEF COMPLAINT/REASON FOR VISIT OB consult HISTORY OF PRESENT ILLNESS This patient presents for OB consult from Dr. Mitchell at [facility]. She is a 31-year-old G3, P 1-1-0-2 female with LMP 02/14/2011 and EDC 11/21/2011 at 38- 0/7 weeks. The patient presents for consult on delivery options. She has a complicated by known breech presentation. The patient underwent external cephalic version attempt on 10/28/2011 which was unsuccessful. The patient now presents to discuss options. She is considering primary section versus repeat version attempt. The patient is doing well. She reports good movement. She has irregular uterine contractions. She denies current pelvic pressure. She denies leaking of fluid, vaginal bleeding. She reports good movement. No headaches, vision changes. No shortness of breath or chest pain. No fevers or chills. No depression symptoms. CURRENT MEDICATIONS 1. vitamin. 2. Ambien p.r.n. 3. Flonase p.r.n. 4. Omeprazole 5. Colace ALLERGIES No known drug allergies. PAST MEDICAL/SURGICAL HISTORY 1. Insomnia 2. Constipation 3. GERD. Past Surgical History 1. Tonsils, adenoids as a child 2. Hemorrhoidectomy 2002 Past Obstetrical History 1. Vaginal delivery 09/16/2000 at 37 weeks male 3,345 grams 2. Vaginal delivery 11/15/2005 female infant 36 weeks 2,977 grams ADULT PREVENT[facility] SERVICES Provided by Dr. Mitchell at [facility]. These records are not available for my review SOCIAL HISTORY Patient is . She has a history of tobacco abuse but quit in 2007. No alcohol, drug use. No history of STD or PID. No history of cervical dysplasia. No history of abuse. FAMILY HISTORY No diabetes or hypertension. No breast cancer, colon cancer or ovarian cancer. LABS Blood type O+, antibody screen negative, hepatitis B surface antigen negative, serology negative, HIV negative, hemoglobin 11.7, platelets 234, rubella immune, 1 hour GTT 163. Three hour GTT 93, 166, 136, 102, normal. GBS culture 10/23/2011 negative. VITAL SIGNS WEIGHT 123.1 kg BLOOD PRESSURE 118/62 PULSE 74 RESPIRATION 18. PHYSICAL EXAMINATION GENERAL: Well developed, well nourished, gravid, obese female in no apparent distress. Alert, oriented times 3. HEAD/NECK: Within normal limits. LUNGS: Clear to auscultation bilaterally with good inspiratory effort. HEART: Regular rate and rhythm without murmur. ABDOMEN: Soft, gravid, obese, nontender and nondistended. Positive bowel sounds. Fundal height 40 cm. Positive Doptones are auscultated 142 beats per minute, breech presentation by Bill's with head in the left upper quadrant SPINE: No CVA tenderness bilaterally. EXTREMITIES: No clubbing, cyanosis or edema. Nontender bilaterally. GENITAL EXAM: Cervix is 1 to 2 cm dilated, 2 cm thick, -1 station, breech presentation confirmed IMPRESSION/REPORT/PLAN 1. Intrauterine at 38-0/7 weeks. Positive cardiac activity. 2. Breech presentation. Status post failed version attempt on 10/28/2011 3. Obesity 4. Insomnia stable on medication 5. GERD stable on medication 6. Constipation stable on medication Plan 1. I reviewed the patient's OB records and discussed her physical findings. She has an in breech presentation. She has had 2 successful vaginal deliveries. The patient had an attempt at external cephalic version on 10/28/2011 which failed. Patient would now like to discuss management options. 2. I discussed option of repeat external cephalic version attempt versus primary section. I do not recommend vaginal breech delivery. I reviewed the risk of this with the patient. I reviewed the risks, benefits, alternatives and indication of repeat external cephalic version attempt as well as primary section. I gave the patient literature to review. 3. Patient would like to proceed forward with primary section. I have contacted [facility] and scheduled patient for primary section on 11/13/2011 at 38-6/7 weeks. 4. Patient will come in and see me next week for OB visit or be seen sooner p.r.n. 5. I will notify Dr. Mitchell's office on the scheduled section so he can be present as allergist/md for her delivery 6. I will have the patient meet anesthesia prior to section. 7. Routine OB precautions, recommendations and instructions are reviewed with the patient includingfetal movement and kick counts 8. Labor precautions reviewed with the patient. Michael Monae M.D./mgcathy cc: Zaki Mitchell MD e-[facility] [employer] [address] [place] [address] Electronically Signed By: MICHAEL MONAE MD On: 11/10/2011 08:31 AM Source: [facility] [email or web address] Document Id: [id number] documented in this encounter Miscellaneous Notes Miscellaneous - Michael Monae M.D. - 11/07/2011 7:11 PM CDT Ambulatory Patient Summary [place] [id number] Visit Information Name: SHILO HUMPHREYS Current Date: 11/07/2011 19:11:57 Physicians Attending Provider: MICHAEL MONAE MD Primary Care Provider: ZAKI MITCHELL MD Your Medications Here is a list of your medications. It is important to take your medications as directed. Use a pillbox or chart to help remind you to take your medications. Please let your doctor or nurse know if you have problems taking your medications. Medication/Strength Dose Route Frequency Indications/Special Instructions/Comments zolpidem (Ambien 10 mg oral tablet) 10 mg Oral once a day (at bedtime) as needed for Sleep multivitamin, ( Multivitamins with Folic Acid 1 mg oral capsule) 1 cap(s) Oral oncea day omeprazole (omeprazole 20 mg oral delayed release capsule) 20 mg Oral once a day before a meal fluticasone nasal (Flonase 50 mcg/inh nasal spray) 1 spray(s) Nasal once a day in each nostril docusate (docusate calcium 240 mg oral capsule) 240 mg Oral once a day Attention: If you have any medications at home that are not on this list, DO NOT take them until youcontact your provider for clarification. Your Allergies & Intolerances Substance Reaction Symptoms Category Comments No Known Allergies Drug Your Problem List Problem Status Onset Comments state, other Active 11/07/2011 Breech presentation of fetus without mention of version, antepartum Active 11/07/2011 Morbid Obesity Active 11/07/2011 Your Upcoming Appointments Date Time Location Reason Provider 11/10/2011 14:00 [facility], pre-op for Michael Monae MD Your Goals/Additional instructions: Source: [facility] POWERCHART Document Id: [id number] Miscellaneous - Michael Monae M.D. - 11/07/2011 7:11 PM CDT Ambulatory Depart Summary [address] [address] Visit Information Name: SHILO HUMPHREYS Visit Date: 11/07/2011 19:11:56 Attending Provider: MICHAEL MONAE MD Primary Care Provider: ZAKI MITCHELL MD, STACY DEE has been given the following list of medications: Your Medications It is important to take your medications as directed. Use a pill box or chart to help remind you to take your medications. Please let your doctor or nurse know if you have problems taking your medications. Medication/Strength Dose Route Frequency Indications/Special Instructions/Comments zolpidem (Ambien 10 mg oral tablet) 10 mg Oral once a day (at bedtime) as needed for Sleep multivitamin, ( Multivitamins with Folic Acid 1 mg oral capsule) 1 cap(s) Oral oncea day omeprazole (omeprazole 20 mg oral delayed release capsule) 20 mg Oral once a day before a meal fluticasone nasal (Flonase 50 mcg/inh nasal spray) 1 spray(s) Nasal once a day in each nostril docusate (docusate calcium 240 mg oral capsule) 240 mg Oral once a day Attention: If you have any medications at home that are not on this list, DO NOT take them until youcontact your provider for clarification. Additional Information: Source: [facility] POWERCHART Document Id: [id number] Miscellaneous - Elisabeth Peña, L.P.N. - 11/07/2011 3:09 PM CDT Adult [employer] [employer] Intake/History Adult [employer] Intake/History Entered On: 11/07/2011 15:11 CDT Performed On: 11/07/2011 15:09 CDT by ELISABETH PEÑA Intake Chief Complaint : consult for LMP Date : 02/14/2011 Systolic Blood Pressure : 118mmHg Diastolic Blood Pressure : 62mmHg NIBP Mean : 81mmHg BP Location : Right upper extremity Blood Pressure Cuff Size : Large Actual Weight : 123.1kg(Converted to: 271lb 6oz) Weight Source : Standing scale Dosing Weight Clinic : 123.10kg ELISABETH PEÑA - 11/07/2011 15:09 CDT Subjective Pain Symptoms : No ELISABETH PEÑA - 11/07/2011 15:09 CDT Dependent Habits Tobacco Use/Currently Using : No Exposure to Tobacco Smoke : Other: none Smoking Status : Never smoker ELISABETH PEÑA - 11/07/2011 15:09 CDT Allergy Allergies (Active) NKA Estimated Onset Date: Unspecified ; Created By: ELISABETH PEÑA; Reaction Status: Active ; Category: Drug ; Substance: NKA ; Type: Allergy ; Updated By: ELISABETH PEÑA; Reviewed Date: 11/07/201115:08 CDT [facility] Document Id: [id number] documented in this encounter Plan of Treatment Not on filedocumented as of this encounter Visit Diagnoses Not on filedocumented in this encounter
--- OUTSIDE RECORDS SUMMARY | 2022-01-15 13:34 | XMS_ITS | Encounter Summary ---
:1980 Author Organization [facility] Address [address] [place] [address] Care Team Providers Name Role Phone Unavailable Primary Care Provider Unavailable Encounter Details Date Type Department Care Team Description 11/13/2011 Hospital Encounter HX NO MAPPING Tomas Monae M.D. Social History Tobacco Use Types Packs/Day Years Used Date Smoking Tobacco: Never Assessed Sex Assigned at Date Recorded Not on file documented as of this encounter Plan of Treatment Not on filedocumented as of this encounter Visit Diagnoses Not on filedocumented in this encounter
--- OUTSIDE RECORDS SUMMARY | 2022-01-15 13:34 | XMS_ITS | Encounter Summary ---
:1980 Author Organization [facility] Address [address] [place] [address] Care Team Providers Name Role Phone Unavailable Primary Care Provider Unavailable Encounter Details Date Type Department Care Team Description 07/15/2014 Hospital Encounter [facility]X [facility] Maritza Wesley M.D. Social History Tobacco Use Types Packs/Day Years Used Date Smoking Tobacco: Never Assessed Sex Assigned at Date Recorded Not on file documented as of this encounter Last Filed Vital Signs Vital Sign Reading Time Taken Comments Blood Pressure - - Pulse 84 07/15/2014 4:08 PM CDT Temperature - - Respiratory Rate 20 07/15/2014 4:08 PM CDT Oxygen Saturation - - Inhaled Oxygen Concentration - - Weight 122 kg (269 lb 6.4 oz) 07/15/2014 4:08 PM CDT Height - - Body Mass Index - - documented in this encounter Progress Notes Jossue Wesley M.D. - 07/15/2014 4:02 PM CDT [id number] CHIEF COMPLAINT/REASON FOR VISIT Dysuria. HISTORY OF PRESENT ILLNESS Ms. Humphreys is a very pleasant 34-year-old female who presents with dysuria and low back pain since last night. She reports urinary frequency and urgency as well. She has never had a urinary tract infection. She is sexually active with one partner. MEDICATIONS Reviewed files per EMR. ALLERGIES Reviewed files per EMR. PHYSICAL EXAMINATION No costovertebral angle tenderness. Abdomen soft, nontender, nondistended. IMPRESSION/REPORT/PLAN Acute cystitis. Urinalysis showed positive leukocyte esterase with microscopy showing 50 to 100 white blood cells per high powered field as well as bacteria. We will treat this with Macrobid 100 mg 2 times daily for 5 days. I have encouraged her to contact her primary care physician if her symptoms persist after treatment is completed. The patient was agreeable to this plan, and all questions were answered. Jossue Wesley M.D./anurag Electronically Signed By: JOSSUE WESLEY MD On: 07/21/2014 08:51 PM Source: [facility] [email or web address] Document Id: [id number] documented in this encounter Miscellaneous Notes Telephone Encounter - Guerline Acosta L.P.N. - 07/21/2014 4:19 PM CDT *Phone Message Document Contains Addenda Addendum by DEBRA MARY on 22 July 2014 13:40:26 CDT PT notified of results Addendum by ELAINE FANG PA-C on 22 July 2014 11:31:58 CDT From: ELAINE FANG PA-C ( Same Day Provider) To: Same Day Nurse; Sent: 07/22/2014 11:31:58 CDT Subject: RE: *Phone Message Urine is OK - To folllow up with pcp if ongoing symptoms/concerns. CG From: GUERLINE ACOSTA ( Same Day Nurse) To: Same Day Provider; Sent: 07/21/2014 16:19:29 CDT Subject: *Phone Message Caller is: ( ) Patient ( ) Mother ( ) Father ( ) Spouse ( ) Daughter ( ) Son ( ) Pharmacy ( ) Other: Physician: Patient MRN #: Reason for Call: Message: Pt had a urine repeat today would like to know the results. Advice/Action: Source used: ( ) Verbalizes understanding of instructions ( ) Instructed to call back if symptoms worsen or do not resolve ( ) Refused to see provider ( ) Appointment Scheduled ( ) OK to leave message on voice mail ( ) Patient told to expect return call: ( ) today ( ) tomorrow ( ) next work day ( ) Patient's email ( ) Patient told physician out of office, will call upon return call on ( ) ( ) Patient told physician out of office, routed to other physician ( ) Other ( ) Call back telephone number ( ) Call back cell phone number ( ) Source: [facility] Conversion Sound Document Id: [id number] Electronically signed by [facility], [facility] system Hub Cutter [id number] at 08/31/2016 3:09 PM CDT Daron - Raúl Sky M.D. - 07/17/2014 7:50 AM CDT Results Notification Document Contains Addenda Addendum by HEATHER RODRIGUEZ on 18 July 2014 12:22:19 CDT Patient notified. Addendum by HEATHER RODRIGUEZ on 18 July 2014 10:48:33 CDT LMTCB From: RAÚL SKY MD To: Same Day Nurse; Sent: 07/17/2014 07:50:32 CDT ! Show up: 07/17/2014 07:50:32 CDT Subject: Results Notification Actions: Notify patient of results Reminder Comments: Finish course of Rx and recheck UA midcycle thereafter. Order entered. Results: Date Result Type Ind Result Name MBO POS Culture Urine Source: [facility] ClassBadgesCHART Document Id: [id number] Electronically signed by [facility], [facility] Hub Cutter [id number] at 08/31/2016 3:09 PM CDT Jossue Agosto M.D. - 07/15/2014 4:50 PM CDT Ambulatory Patient Summary [facility] [address] [place] [id number] Visit Information Name: SHILO HUMPHREYS [facility] Number: [id number] Current Date: 07/15/2014 16:50:09 Physicians Attending Provider: UNKNOWN1, PROVIDER Primary Care Provider: PCP, ELSEWHERE SHILO HUMPHREYS has been given the following list of follow-up instructions, medication list, andpatient education materials: Follow-up Instructions Your Medications Here is a list of your medications. It is important to take your medications as directed. Use a pillbox or chart to help remind you to take your medications. Please let your doctor or nurse know if you have problems taking your medications. Medication/Strength How to Take Indications/Special Instructions/Comments/Notes for Patient Medication Changes/Routing *docusate (docusate calcium 240 mg oral capsule) 1 cap, Oral, once a day FLUoxetine (FLUoxetine 20 mg oral tablet) 1 Tablet(s), Oral, once a day *fluticasone nasal (Flonase 50 mcg/inh nasal spray) 1 [place](s), Nasal, once a day in each nostril *multivitamin, ( Multivitamins with Folic Acid 1 mg oral capsule) 1 cap, Oral, oncea day nitrofurantoin (Macrobid 100 mg oral capsule) 1 cap, Oral, two times a day x 5 day(s) New Routed to [address] [phone] *omeprazole (omeprazole 20 mg oral delayed release capsule) 1 cap, Oral, once a day before a meal zolpidem (Ambien 10 mg oral tablet) 1 Tablet(s), Oral, once a day (at bedtime) as needed for Sleep * You have let us know that you are not taking this medication as listed. Please talk with your primary care provider or the health care provider who prescribed the medication as soon as possible. Stop Taking the Following Medications: Medication list as of 07-15-14 16:50 Attention: If you have any medications at home that are not on this list, DO NOT take them until youcontact your provider for clarification. Give a copy of your medication list to your primary care provider. Update your medication list any time medications or doses are changed and carry your medication list at all times in case of emergency. Electronically Signed By: JOSSUE WESLEY MD Signed On:15-JUL-2014 16:50:01 Your Allergies & Intolerances Substance Reaction Symptoms Category Comments No Known Allergies Drug Your Problem List Problem Status Onset Comments Morbid Obesity Active 11/07/2011 GERD [Gastroesophageal reflux disease] Active 11/07/2011 Deformity Nasal Septal Active Menorrhagia Active Migraine Headache (CHEEMA) NOS Active Premenstrual Syndrome Active Pain Neck Active Palpitations Active Syncope And Collapse Active 08/01/13fall 2012 Your Upcoming Appointments Date Time Location Provider No Appointments found Attention: Contact your local Clinic if further appointment detail needed. Your Goals/Additional instructions: Source: [facility] POWERCHART Document Id: [id number] Miscellaneous - Jossue Wesley M.D. - 07/15/2014 4:50 PM CDT Ambulatory Discharge Medication List [facility] [address] [place], [place] [phone] Visit Information Name: SHILO HUMPHREYS [facility] Number: [id number] Visit Date: 07/15/2014 16:50:08 Attending Provider: UNKNOWN1, PROVIDER Primary Care Provider: PCP, ELSEWHERE SHILO HUMPHREYSE has been given the following list of medications: Your Medications It is important to take your medications as directed. Use a pill box or chart to help remind you to take your medications. Please let your doctor or nurse know if you have problems taking your medications. Medication/Strength How to Take Indications/Special Instructions/Comments/Notes for Patient Medication Changes/Routing *docusate (docusate calcium 240 mg oral capsule) 1 cap, Oral, once a day FLUoxetine (FLUoxetine 20 mg oral tablet) 1 Tablet(s), Oral, once a day *fluticasone nasal (Flonase 50 mcg/inh nasal spray) 1 [place](s), Nasal, once a day in each nostril *multivitamin, ( Multivitamins with Folic Acid 1 mg oral capsule) 1 cap, Oral, oncea day nitrofurantoin (Macrobid 100 mg oral capsule) 1 cap, Oral, two times a day x 5 day(s) New Routed to [place] [address] [place], [place] [phone] *omeprazole (omeprazole 20 mg oral delayed release capsule) 1 cap, Oral, once a day before a meal zolpidem (Ambien 10 mg oral tablet) 1 Tablet(s), Oral, once a day (at bedtime) as needed for Sleep * You have let us know that you are not taking this medication as listed. Please talk with your primary care provider or the health care provider who prescribed the medication as soon as possible. Stop Taking the Following Medications: Medication list as of 07-15-14 16:50 Attention: If you have any medications at home that are not on this list, DO NOT take them until youcontact your provider for clarification. Give a copy of your medication list to your primary care provider. Update your medication list any time medications or doses are changed and carry your medication list at all times in case of emergency. Electronically Signed By: JOSSUE WESLEY MD Signed On:15-JUL-2014 16:50:01 Additional Information: Source: [facility] POWERCHART Document Id: [id number] Miscellaneous - Oliva Carrera, L.P.N. - 07/15/2014 4:08 PM CDT Adult Web Master Intake/History Adult Web Master Intake/History Entered On: 07/15/2014 16:11 CDT Performed On: 07/15/2014 16:08 CDT by OLIVA CARRERA Intake Chief Complaint : Dysuria, sore in lower back, hematuria Onset of Symptoms : Symptoms began last night Temperature Oral : 36.6 DegC(Converted to: 97.9 DegF) Peripheral Pulse Rate : 84 /min Respiratory Rate : 20 /min Systolic Blood Pressure : 110 mmHg Diastolic Blood Pressure : 70 mmHg NIBP Mean : 83 mmHg BP Location : Right upper extremity Blood Pressure Cuff Size : Large Actual Weight : 122.2 kg(Converted to: 269 lb 6 oz) Dosing Weight Clinic : 122.2 kg OLIVA CARRERA - 07/15/2014 16:08 CDT General Info Information Given By : Patient Preferred Communication Mode : Verbal Languages : Irish Is Patient Female and 13-50 no hysterectomy : Yes Status : Patient denies Are you ? : No OLIVA CARRERA - 07/15/2014 16:08 CDT Subjective Pain Symptoms : No OLIVA CARRERA 07/15/2014 16:08 CDT Dependent Habits Tobacco Use/Currently Using : No Exposure to Tobacco Smoke : Other: former Smoking Status : Former smoker OLIVA CARRERA R - 07/15/2014 16:08 CDT ID Screen Travel Within Last 21 Days : No Contact with someone with Ebola : No OLIVA CARRERA R - 07/15/2014 16:08 CDT Source: [facility] POWERCHART Document Id: [id number] CDT!30 documented in this encounter Plan of Treatment Not on filedocumented as of this encounter Procedures Procedure Name Priority Date/Time Associated Comments Diagnosis BACTERIAL CULTURE, Routine 07/15/2014 4:20 PM Res ults for this AEROBIC, URINE CDT procedure are in the results section. HXUR % DYSMORPHIC Routine 07/15/2014 4:17 PM Resu lts for this RBC CDT procedure are i n the results section. URINALYSIS, Routine 07/15/2014 4:17 PM Results f or this MIDSTREAM, WITH CDT procedure ar e in CULTURE IF INDICATED the res ults section. documented in this encounter Results (ABNORMAL) Bacterial Culture, Aerobic, Urine (07/15/2014 4:20 PM CDT) Analysis Performed At Patho logist Time Signature Bacterial EC <=2 POWERCHART Culture, (POSITIVE) Aerobic, Urine HXPre GNR POWERCHART Comment: >100,000 cfu/mL Gram Negative R ods HXFinal EC POWERCHART Comment: >100,000 cfu/mL Escherichia col i Specimen Anatomical Collection Method Collection Time Receive d Time (Source) Location / / Volume Laterality Urine, First 07/15/2014 4:20 PM 5 4:20 Voided CDT PM CDT Organism Antibiotic Method Susceptibility Escherichia coli Ampicillin SUSCEPTIBILITY, AMITA <=2: Suscep tible (MCG/ML) Escherichia coli Ampicillin + Sulbactam SUSCEPTIBILITY, AMITA <=2: Susceptible (MCG/ML) Escherichia coli Aztreonam SUSCEPTIBILITY, AMITA <=1: Suscep tible (MCG/ML) Escherichia coli Cefazolin SUSCEPTIBILITY, AMITA <=4: Suscep tible (MCG/ML) Escherichia coli Cefepime SUSCEPTIBILITY, AMITA <=1: Suscep tible (MCG/ML) Escherichia coli Ceftazidime SUSCEPTIBILITY, AMITA <=1: Suscep tible (MCG/ML) Escherichia coli Ceftriaxone SUSCEPTIBILITY, AMITA <=1: Suscep tible (MCG/ML) Escherichia coli ESBL Confirmation Test SUSCEPTIBILITY, AMITA Neg: Negative (MCG/ML) Escherichia coli Ertapenem SUSCEPTIBILITY, AMITA <=0.5: Susc eptible (MCG/ML) Escherichia coli Gentamicin SUSCEPTIBILITY, AMITA <=1: Suscep tible (MCG/ML) Escherichia coli Levofloxacin SUSCEPTIBILITY, AMITA <=0.12: Carmelina ceptible (MCG/ML) Escherichia coli Meropenem SUSCEPTIBILITY, AMITA <=0.25: Carmelina ceptible (MCG/ML) Escherichia coli Nitrofurantoin SUSCEPTIBILITY, AMITA <=16: Susce ptible (MCG/ML) Escherichia coli Piperacillin + Tazobactam SUSCEPTIBILITY, AMITA < =4: Susceptible (MCG/ML) Escherichia coli Trimethoprim + SUSCEPTIBILITY, AMITA <=20: Susce ptible Sulfamethoxazole (MCG/ML) Escherichia coli Tobramycin SUSCEPTIBILITY, AMITA <=1: Suscep tible (MCG/ML) Jossue Wesley M.D. LAB MICROBIOLOGY - GENERAL O RDERABLES Performing Organization Address City/[facility]/ZIP Code Phon e Number POWERCHART HXUR % DYSMORPHIC RBC (07/15/2014 4:17 PM CDT) athologist Signature Dysmorphic RBC <=25 <=25 POWERCHART Specimen Anatomical Collection Method Collection Time Receive d Time (Source) Location / / Volume Laterality Urine, First 07/15/2014 4:17 PM 5 4:17 Voided CDT PM CDT Jossue Wesley M.D. LAB HISTORICAL ORDERS Performing Organization Address [facility] Code Phon e Number POWERCHART (ABNORMAL) Urinalysis, Midstream, with culture if indicated (07/15/2014 4:17 PM CDT) [facility] gist Method Time Signature HXUR WBC. 51-100 (A) None Seen POWERCHART HPF HXUR RBC. 31-40 (A) None Seen POWERCHART HPF HXUR Bacteria, Present (A) None Seen POWERCHART Squamous 4-10 (A) None Seen POWERCHART Epithelial HPF HXUr Color STRAW POWERCHART Clarity Slightly Clear POWERCHART Cloudy (A) Glucose Negative Negative POWERCHART HXBILIRUBIN Negative Negative POWERCHART Ketones, QL(U) Negative Negative POWERCHART Specific 1.015 POWERCHART [place], POCT, U pH, POCT, Urine 6.0 <5.0 POWERCHART Protein, Ur, Dip Trace Negative POWERCHART Urobilinogen 0.2 0.2 MGDL POWERCHART HXNITRITE Negative Negative POWERCHART HXBLOOD Large (A) Negative POWERCHART Leukocyte Small (A) Negative POWERCHART Esterase Specimen (Source) Anatomical Collection Method Collection Time Re ceived Time Location / / Volume Laterality Urine, First 07/15/2014 4:17 PM Voided CDT Jossue Wesley M.D. LAB URINE ORDERABLES Performing Organization Address City/State/ZIP Code Phon e Number POWERCHART documented in this encounter Visit Diagnoses Not on filedocumented in this encounter
--- OUTSIDE RECORDS SUMMARY | 2022-01-15 13:34 | XMS_ITS | Clinical Summary ---
:1980 Author Organization [facility] Address [address] [place] [address] Care Team Providers Name Role Phone Unavailable Primary Care Provider Unavailable Source Comments Patient records contain information from all sites at [facility]. For routine questions regarding patient records, call [phone] during business hours, M-F 8:00 AM - 5:00 PM Central Time. Record requests for emergency care only can be directed to [phone] at any time.[facility] Allergies No known active allergies Immunizations Name Administration Dates Next Due SARS-COV-2 (COVID-19) - RAMSES ([facility]) 07/12/2020 Social History Tobacco Use Types Packs/Day Years Used Date Smoking Tobacco: Former Sex Assigned at Date Recorded Not on file Last Filed Vital Signs Vital Sign Reading Time Taken Comments Blood Pressure 110/70 07/15/2014 4:08 PM CDT Pulse 84 07/15/2014 4:08 PM CDT Temperature - - Respiratory Rate 20 07/15/2014 4:08 PM CDT Oxygen Saturation - - Inhaled Oxygen Concentration - - Weight 122 kg (269 lb 6.4 oz) 07/15/2014 4:08 PM CDT Height - - Body Mass Index - - Plan of Treatment Health Maintenance Due Date Last Done Comments HIV Screening 1980 Hepatitis B Vaccines (1 of 3 - 1980 3-dose series) Hepatitis C Screening 1980 Lipid (Cholesterol) Screening 1980 Mammogram 1980 Pneumococcal vaccine (0-64 years) 07/12/1985 (1 - PCV) Cervical Cancer Screening 07/12/2014 2011 DTaP,Tdap,and Td Vaccines (2 - Td 01/03/2021 01/03/2011 or Tdap) Depression Screening (Annual 04/06/2021 PHQ-2) COVID-19 Vaccine (3 - Booster for 05/01/2021 03/06/2021, Ramses series) Influenza Vaccine (#1) 2022 01/29/2021, 12/26/2019, 01/24/2019, Additional history exists Insurance Payer Benefit Plan Subscriber ID Effective Phone Address Typ e / Group Dates LENY MICHELE [id number] 2017-Presluann [phone] [place] [address] [place] [id number]
--- OUTSIDE RECORDS SUMMARY | 2022-01-15 13:34 | XMS_ITS | Encounter Summary ---
:1980 Author Organization [facility] Address [address], [place] [address] Care Team Providers Name Role Phone Raheel Silvestre MD Primary Care Provider Reason for Visit Reason Comments Morbid Obesity Encounter Details Date Type Department Care Team Description 12/05/2014 Office Visit [facility] Cary Zarate Morbid ob esity with Surgery & Weight Mio RN BMI of 40.0 -44.9, Center adult (Primary Dx) [address] [facility] [address] [place], [place] [address] Social History Tobacco Use Types Packs/Day Years Used Date Smoking Tobacco: Never Assessed Sex Assigned at Date Recorded Not on file documented as of this encounter Last Filed Vital Signs Vital Sign Reading Time Taken Comments Blood Pressure 110/76 12/05/2014 8:57 AM CDT Pulse 84 12/05/2014 8:57 AM CDT Temperature - - Respiratory Rate - - Oxygen Saturation - - Inhaled Oxygen Concentration - - Weight 126.8 kg (279 lb 9.6 oz) 12/05/2014 8:57 AM CDT Height 166.4 cm (5' 5.5) 12/05/2014 8:57 AM CDT Body Mass Index 45.82 12/05/2014 8:57 AM CDT documented in this encounter Progress Notes Cary Zarate RN - 12/05/2014 9:54 AM CDT Department of Bariatric Surgery band leader Visit SUBJECTIVE: This 34 y.o. year-old female is seen for obesity assessment, discussion of obesity surgery and review of medical history. Past Medical History: Morbid Obesity. The onset of obesity occurred at approximately 15 years of agewith gradual escalation into adulthood. Morbid obesity has been present for at least 19 years. A detailed explanation of obesity surgery including risks, benefits and uncertainties were received at the previous group information session. A copy of A Guide to Better Health for ongoing review and reference was also provided. The opportunity was given to have all questions answered at that session. Past Medical History Diagnosis Date ??? Obesity (HIGH RISK) ??? Low back pain (HIGH RISK) ??? Retinal vascular changes OBESITY RELATED HEALTH PROBLEMS: Back pain, joint pain PREVIOUS BARIATRIC SURGERY: tubal ligation, ,Tonsillectomy, [place] tooth extraction, Anus surgery Past Surgical History Procedure Laterality Date ??? Tubal ligation ??? section ??? Tonsillectomy ??? [place] tooth extraction ??? Anus surgery Current outpatient prescriptions: acetaminophen (TYLENOL) 325 mg tablet, Take 325-650 mg by mouth every 4 hours as needed for Pain. Maximum 4000mg per 24 hours, , Disp: , Rfl: ; Cholecalciferol, Vitamin D3, 2,000 unit Tab, Take 1 tablet by mouth daily (every 24 hours). Indications: PREVENTION OF VITAMIN D DEFICIENCY, , Disp: , Rfl: ; ibuprofen (MOTRIN) 200 mg tablet, Take 200 mg by mouth every 6 hours as needed for Pain., , Disp: , Rfl: metroNIDAZOLE (METROGEL) 0.75 % gel, Apply topically 2 times daily., , Disp: , Rfl: ; minocycline (MINOCIN, DYNACIN) 100 mg capsule, Take 100 mg by mouth daily (every 24 hours). Indications: SKIN AND SKIN STRUCTURE INFECTION, , Disp: , Rfl: ; omeprazole (PRILOSEC) 20 mg capsule, Take 20 mg by mouth daily (every 24 hours). Indications: GASTROESOPHAGEAL REFLUX, , Disp: , Rfl: pediatric multivitamin (POLY--ARPITA) chewable tablet, Take 1 tablet by mouth daily (every 24 hours).Indications: VITAMIN DEFICIENCY PREVENTION, , Disp: , Rfl: ; zolpidem (AMBIEN) 10 mg tablet, Take 10mg by mouth at bedtime as needed for Sleep., , Disp: , Rfl: No Known Allergies OBJECTIVE: Filed Vitals: 12/05/14 0857 BP: 110/76 Pulse: 84 Height: 5' 5.5 (166.4 cm) Weight: 279 lb 9.6 oz (669098 g) Body mass index is 45.8 kg/(m^2). [place] Weight ([employer]): 135.1 Excess Weight: 144.5 ASSESSMENT: Appears to be a good candidate for bariatric surgery . PLAN: An understanding of bariatric surgery, including its risks and benefits were verbalized by the patient. An understanding of the necessity for commitment to life-long follow-up, lifestyle changes and dietary modification required for long-term success was also verbalized.. documented in this encounter Plan of Treatment Not on filedocumented as of this encounter Visit Diagnoses Diagnosis Morbid obesity with BMI of 40.0-44.9, ad ult ([facility]) - Primary documented in this encounter Care Teams Sustainable Design Coordinator Relationship Specialty Start Date End Date Raheel Silvestre MD PCP - General [address] [place] [address] documented as of this encounter
--- OUTSIDE RECORDS SUMMARY | 2022-01-15 13:34 | XMS_ITS | Encounter Summary ---
:1980 Author Organization [email or web address] Address [address] [place] [address] Care Team Providers Name Role Phone Raheel Silvestre MD Primary Care Provider Reason for Visit Reason Comments Nutrition Counseling Encounter Details Date Type Department Care Team Description 03/20/2015 Office Visit [facility] Tapia, Morbid obe sity with Surgery & Weight RDN, LD BMI of 40.0-44.9, Center [address] adult (Primary Dx) [address] [facility] [address] [facility] [address] [place] [address] [id number] [phone] Social History Tobacco Use Types Packs/Day Years Used Date Smoking Tobacco: Never Assessed Sex Assigned at Date Recorded Not on file documented as of this encounter Last Filed Vital Signs Vital Sign Reading Time Taken Comments Blood Pressure - - Pulse - - Temperature - - Respiratory Rate - - Oxygen Saturation - - Inhaled Oxygen Concentration - - Weight 125.4 kg (276 lb 6.4 oz) 03/20/2015 9:47 AM HOT PACKER Height 165.1 cm (5' 5) 03/20/2015 9:47 AM HOT PACKER Body Mass Index 46 03/20/2015 9:47 AM HOT PACKER documented in this encounter Progress Notes Amanda Tapia, RD - 03/20/2015 10:02 AM CST [facility] Education Medical Nutrition Therapy: Bariatric [facility] Follow-Up ASSESSMENT: Referring Provider: Lanie Nam MBBS Weight: 125.374 kg (276 lb 6.4 oz) Height: 1.651 m (5' 5) BMI: Body mass index is 46 kg/(m^2).. Since last RD visit: Has started to practice not drinking with one meal/day. Being mindful of snacking- bringing her own snack to work in case she needs it. Has tried protein shakes. Has almost cut outall snacking between meals. Patient is an appropriate candidate for desired bariatric surgery based on current dietary habits. Patient will continue medical weight management visits as required by insurance prior to consideration for bariatric surgery. Exercise: Patient is engaging in physical activity: Is taking stairs at work- has been doing short bursts of walking but has a lot of knee and back pain. DIAGNOSIS: Nutrition Diagnosis: Overweight/Obesity (NC 3.3). related to: excess energy intake for activity level as evidenced by: BMI 44. INTERVENTION: Exercise guidelines. Healthy Diet and Meal planning. Mindful eating. Patient verbalizes understanding of the education. MONITORING AND EVALUATION: Patient appears moderately motivated to change Patient identified goals: 1. work on adequate water intake between meals. 2. count protein 3. walk 10 min/day in addition to stairs at work. Follow up with dietitian in one month for medical weight management. Time: 30 minutes. PACKER documented in this encounter Plan of Treatment Not on filedocumented as of this encounter Visit Diagnoses Diagnosis Morbid obesity with BMI of 40.0-44.9, ad ult ([facility]) - Primary documented in this encounter Care Teams Metal Pickling Equipment Operator Relationship Specialty Start Date End Date Raheel Silvestre MD PCP - General 10/17/[address] [place] [address] documented as of this encounter
--- OUTSIDE RECORDS SUMMARY | 2022-01-15 13:34 | XMS_ITS | Encounter Summary ---
:1980 Author Organization [employer] Address [address] [place] [address] Care Team Providers Name Role Phone Raheel Silvestre MD Primary Care Provider Encounter Details Date Type Department Care Team Description 12/04/2014 Notes/Orders [facility] Ravi Puckett obesity due to excess calories (Primary Dx); & Weight Center TRUDY Varma Abnormal weight gain; [address] [facility] Person al history of other endocrine, metabolic, and immunity disorders [address] [place], [place] [address] Social History Tobacco Use Types Packs/Day Years Used Date Smoking Tobacco: Never Assessed Sex Assigned at Date Recorded Not on file documented as of this encounter Plan of Treatment Not on filedocumented as of this encounter Procedures Procedure Name Priority Date/Time Associated Comments Diagnosis ECG 12 LEAD Routine 12/05/2014 9:51 AM Morbid obesity due Res ults for this OUTPATIENT CDT to excess calories procedure are in ([facility]) the results section. documented in this encounter Results ECG 12 Lead Outpatient (12/05/2014 9:51 AM CDT) P athologist Signature Ventricular Rate 81 BPM MUSE [facility] Atrial Rate 81 BPM [facility] P-R Interval 150 ms MUSE [facility] QRS Duration 82 ms MUSE [facility] QT 390 ms MUSE [facility] QTc 453 ms MUSE [facility] P [place] 40 degrees MUSE [facility] R [place] 51 degrees MUSE G[facility] T [place] 27 degrees MUSE [facility] Specimen (Source) Anatomical Collection Method Collection Time Re ceived Time Location / / Volume Laterality 12/05/2014 9:51 AM CDT Narrative MUSE P - 07/08/2019 4:47 AM CDT Sinus rhythm Within normal limits No previous ECGs available Confirmed by PRISCILLA OLEA ([id number]), ELOISE Nguyen ([id number]) on 12/05/2014 12:04:58 PM Procedure Note Epic, Internal Processing - 07/09/2019Fo rmatting of this note might be different from the original. Sinus rhythm Within normal limits No previous ECGs available Confirmed by PRISCILLA OLEA ([id number]), ELOISE Nguyen ([id number]) on 12/05/2014 12:04:58 PM Lanie SMITH PN ECG ORDERABLES Performing Organization Address City/State/ZIP Code Phon e Number MUSE [facility] [address] [place] [address] documented in this encounter Visit Diagnoses Diagnosis Morbid obesity due to excess calories (H RC) - Primary Abnormal weight gain Personal history of other endocrine, met abolic, and immunity disorders documented in this encounter Care Teams Group Reservations Coordinator Relationship Specialty Start Date End Date Raheel Silvestre MD PCP - General 10/17/[address] [place] [address] documented as of this encounter
--- OUTSIDE RECORDS SUMMARY | 2022-01-15 13:34 | XMS_ITS | Encounter Summary ---
:1980 Author Organization [facility] Address [address] [place] [address] Care Team Providers Name Role Phone Raheel Silvestre MD Primary Care Provider Reason for Visit Reason Comments Phone Call Encounter Details Date Type Department Care Team Description 08/10/2015 Telephone [place] [facility] Marychuy Terrell RN Phone Call Center [address] [facility] [address] [place], [place] [id number] Social History Tobacco Use Types Packs/Day Years Used Date Smoking Tobacco: Never Assessed Sex Assigned at Date Recorded Not on file documented as of this encounter Nursing Notes [place] Terrell RN - 08/10/2015 9:15 AM CDT Pre-op courtesy call placed today. Spoke with the patient . Patient encouraged to call with any questions or concerns regarding upcoming bariatric surgery. Call back number given. Pt. was reminded of clear liquids only the day before surgery, NPO after midnight, pre-op shower instructions given. documented in this encounter Plan of Treatment Not on filedocumented as of this encounter Visit Diagnoses Not on filedocumented in this encounter Care Teams Thermocouple Tester Relationship Specialty Start Date End Date Raheel Silvsetre MD PCP - General 10/17/[address] [place] [address] documented as of this encounter
--- OUTSIDE RECORDS SUMMARY | 2022-01-15 13:34 | XMS_ITS | Encounter Summary ---
:1980 Author Organization [facility] Address [address] [place] [address] Care Team Providers Name Role Phone Unavailable Primary Care Provider Unavailable Encounter Details Date Type Department Care Team Description 07/15/2014 Hospital Encounter HX NO MAPPING Negro Pham M.D. Social History Tobacco Use Types Packs/Day Years Used Date Smoking Tobacco: Never Assessed Sex Assigned at Date Recorded Not on file documented as of this encounter Miscellaneous Notes Miscellaneous - Conversion, Historical Provider Ser - 07/15/2014 11:59 PM CDT Coding Summary-Paper Based CODING DATE: 07/27/2014 FINAL [facility] STATUS: * Discharged to Home or Self Care PAYOR: [employer] ADMIT DX: REASON FOR VISIT DX: FINAL DX: PRINCIPAL: 788.1 Dysuria SECONDARY: PROCEDURES DOCTOR NAME DATE NOTE: The code number assigned matches the documented diagnosis and / or procedure in the patient's chart. However, the narrative phrase printed from the coding software may appear abbreviated, or result in slightly different terminology. Coded By: MISSY SMITH Date Saved: 07/27/2014 03:19 pm [facility] Document Id: [id number] documented in this encounter Plan of Treatment Not on filedocumented as of this encounter Visit Diagnoses Not on filedocumented in this encounter
--- OUTSIDE RECORDS SUMMARY | 2022-01-15 13:34 | XMS_ITS | Encounter Summary ---
:1980 Author Organization [facility] Address [address] [place] [id number] Care Team Providers Name Role Phone Unavailable Primary Care Provider Unavailable Encounter Details Date Type Department Care Team Description 09/14/2013 Hospital Encounter HX [facility] Ayaan Andrew M.D. [address] [place], [place] [address] (Wo rk) Social History Tobacco Use Types Packs/Day Years Used Date Smoking Tobacco: Never Assessed Sex Assigned at Date Recorded Not on file documented as of this encounter Last Filed Vital Signs Vital Sign Reading Time Taken Comments Blood Pressure 106/70 09/14/2013 4:05 PM CDT Pulse 76 09/14/2013 4:05 PM CDT Temperature - - Respiratory Rate 16 09/14/2013 4:05 PM CDT Oxygen Saturation - - Inhaled Oxygen Concentration - - Weight 106 kg (234 lb 9.1 oz) 09/14/2013 4:05 PM CDT Height - - Body Mass Index - - documented in this encounter Progress Notes Ninfa Andrew M.D. - 09/14/2013 3:51 PM CDT [id number] CHIEF COMPLAINT/REASON FOR VISIT Followup. HISTORY OF PRESENT ILLNESS A 33-year-old female presents to clinic for a follow up. She went to see her eye doctor who noticed some inflammatory changes. She saw a retinal specialist who is concerned that there is a possibility of an antiinflammatory illness processes such as lupus which is leading to her eye symptoms. She has pain primarily on the right side of her head behind her eye, but the left side of her head will become painful as well. She also has pain in her right shoulder blade and in her right ear all related to this unusual headache. She feels like she does not hear as well when she has this pain. She has a sore throat but this is worse on the left side. She has had chronic insomnia and dyspareunia for some time as well. She feels short of breath. Did not have a formal exercise testing, but was given medicineto treat stress-induced asthma. Is not really very active. Episodically has palpitations near daily basis. Does feel flushed. Gets her headache and these will come several times per day on occasion lasting a couple of minutes. Was given a prescription for heartburn but she does not use this product. Has a bowel movement every 2 or 3 days and this is not changed although occasionally she will have a painful stool with a bit of blood surrounding the stool every month or 2 and this will be kind of cyclic. Had one menstrual cycle when she was on her fluoxetine she is using for her PMS symptoms. It did c ontinue to be heavy. Did have an episode of syncope with intercourse event. Did have an episode of extreme toe pain when the air conditioning was on a few weeks ago that resolved when she turned the air. EMR reviewed. MEDICATIONS 1. Ambien 10 mg at bedtime near daily, outside provider. 2. History of vitamins but not at the present time. 3. Flonase 2 squirts each nostril near daily. 4. Omeprazole 20 mg daily. 5. Obdp-lhg-cusgbsn Colace once a day to twice a day, two or 3 times per week basis. 6. Fluoxetine 20 mg daily begun 08/01/2013. ALLERGIES No known drug allergies. SYSTEMS REVIEW CONSTITUTIONAL: No fevers, chills, night sweats. Slow weight gain over the years. EYES: See above. ENT: No hearing loss or oral problems. Last dental exam 2012. Has a few cavities which have not been taken care of. CARDIOVASCULAR: No chest pain or true claudication. Has episodic edema which primarily occurs if she has too much sodium. See above. RESPIRATORY: No cough, wheeze, hemoptysis. See above. GASTROINTESTINAL: No abdominal pain, hematemesis, melena, dysphagia. Irregular bowel habits. See above. GENITOURINARY: No nocturia, hematuria, incontinence or dysuria. See above. MUSCULOSKELETAL: No truejoint pain, swelling, stiffness or obvious deformities. INTEGUMENTARY: No rashes or pruritus. NEUROLOGIC: No seizures. See the chart. PSYCHIATRIC: See the chart. ENDOCRINE: No history of diabetes or thyroid problems. HEMATOLOGIC/LYMPHATIC: No history of anemia or bleeding. ALLERGIC/IMMUNOLOGIC: Pleasesee the chart. PAST MEDICAL/SURGICAL HISTORY PAST SURGICAL HISTORY: 1. Tonsillectomy 1997. 2. Hemorrhoidectomy 2012. 3. with a tubal ligation at 38-6/7 weeks gestation 11/13/2011. OTHER HOSPITALIZATIONS: Two vaginal deliveries one at 36 weeks and one at 37 weeks in 2005 and 2000 respectively. PAST MEDICAL HISTORY: 1. Poorly defined inflammatory ophthalmic problem. 2. Morbid obesity. 3. Headaches. 4. Septal deviation. 5. GERD. 6. PMS. 7. Chronic pain. 8. Syncopal event in fall 2012. 9. Palpitations. PREVENTIVE SERVICES Tobacco quit January 2008 with no recurrence. Mammogram not applicable secondary to stated age. Pap smear fall 2011, chlamydia not applicable secondary to stated age. Colon screen not applicable secondary to stated age. Depression no. Asthma no. Lipids 05/22/2013 work exam, tetanus 01/03/2011, Pneumovax not applicable secondary to stated age. Influenza 02/02/2013. SOCIAL HISTORY No history of alcohol to excess. Supportive spouse. FAMILY HISTORY Mother shoulder surgery, cholecystectomy. Father back surgery, some type of poor vision but not syndrome. Maternal grandmother lung cancer in a smoker, anxiety. Maternal grandfather at age 59 of acardiac arrest. Paternal grandmother scoliosis. Paternal grandfather is alive and well. No brothers.Three sisters, one with depression and degenerative joint disease, another with degenerative joint disease and depression and the third with just depression. Children are alive. VITAL SIGNS WEIGHT: 106.4 kg. TEMPERATURE: 37.3. RESPIRATORY RATE: 16. PULSE: 76. SYSTOLIC: 106. DIASTOLIC: 70. PHYSICAL EXAMINATION GENERAL: Neatly dressed. Well groomed. HEAD: No evidence of trauma, tenderness or masses. EYES: PERRLA. Full EOM. Funduscopic exam grossly normal. ENT: Ears: Tympanic membranes are stanley. Subjectively intact hearing. Nose: Mucosal membranes pink and moist. Septum is somewhat irregular. Oral: No exudates. Teeth in good condition. No pharyngeal erythema. Neck: Supple. Trachea midline. LYMPH NODES: No cervical or femoral adenopathy. THYROID: No thyroid masses, tenderness or enlargement. CHEST: Heart: Regular rate and rhythm. No clicks, rubs or murmurs. Lungs: Clear to auscultation. No palpable chest wall masses. ABDOMEN: Soft, nontender, bowel sounds present. Organomegaly is difficult to assess secondary to body habitus. EXTREMITIES: Trace ankle edema consistent with patient's body habitus. MENTAL: Oriented times three. NEURO: Reflexes 2+ triceps, biceps, knees and ankles. Gait smooth, steady. SKIN: Warm and dry. Slight erythema with increased telangiectasias on the cheeks. PERIPHERAL VESSELS: Positive radial, ulnar, femoral, posterior tib, dorsalis pulses. IMPRESSION/REPORT/PLAN 1. Rash on the face suspicious for rosacea, could be an atypical malar rash. 2. Eye disorder. 3. Morbid obesity. 4. Fatigue. 5. Premenstrual syndrome. 6. Headache syndrome. 7. Episode of toe pain. PLAN: Will recommend autoimmune evaluation with a CBC, basic metabolic profile, hepatic profile, uric acid, sedimentation rate, CRP and a nuclear antibody, rheumatoid factor, CCP, double-stranded DNA antibody, Monae antibody, phospholipid antibody evaluation and following up accordingly. May indeed need to consider placement of a Holter monitor and/or echocardiogram. May need formal pulmonary function studies. Will continue on the current dose of fluoxetine at this time, but may need to increase this product. There is a component of mechanical pain in terms of her dyspareunia and this will likely not be eliminated, but rather than randomly increase medications will complete evaluation prior to making any other significant changes. She is comfortable with this plan. Spent 20 of the 40 minute visitin discussion. Ninfa Andrew M.D./anurag Electronically Signed By: NINFA ANDREW MD On: 09/16/2013 07:47 PM Modified by and Electronically Signed by: NINFA ANDREW MD On: 09/16/2013 07:47 PM Source: [facility] [email or web address] Document Id: [id number] documented in this encounter Nursing Notes Beckie Bernal L.P.N. - 09/19/2013 10:31 AM CDT Labs 09-14-13 Result card sent. Electronically Signed By: BECKIE BERNAL LPN On: 09/19/2013 10:31 AM Source: [facility] POWERCHART Document Id: [id number] documented in this encounter Miscellaneous Notes Telephone Encounter - Ninfa Andrew M.D. - 09/16/2013 12:00 AM CDT [id number] Patient's complex in-depth laboratory evaluation for evaluation of possible lupus and other autoimmune diseases was all entirely normal. There were no abnormalities whatsoever. A basic laboratory evaluation was stable as well. Card is sent to patient in regards to this issue with recommendation to continue to follow up with her eye doctor. Ninfa Andrew M.D./anurag Electronically Signed By: NINFA ANDREW MD On: 09/19/2013 04:27 PM Modified by and Electronically Signed by: NINFA ANDREW MD On: 09/19/2013 04:27 PM Source: [facility] MHSDOLBEYNONRADSYS Document Id: [id number] Miscellaneous - Ninfa Andrew M.D. - 09/14/2013 5:12 PM CDT Ambulatory Patient Summary [address] [id number] Visit Information Name: SHILO HUMPHREYS [facility] Number: [id number] Current Date: 09/14/2013 17:12:26 Physicians Attending Provider: NINFA ANDREW MD Primary Care Provider: NINFA ANDREW MD JULIANN SHILO OSBORNE has been given the following list of [...] Take Indications/Special Instructions/Comments/Notes for Patient Medication Changes/Routing docusate (docusate calcium 240 mg oral capsule) 1 cap, Oral, once a day FLUoxetine (FLUoxetine 20 mg oral tablet) 1 Tablet(s), Oral, once a day *fluticasone nasal (Flonase 50 mcg/inh nasal spray) 1 Lyle(s), Nasal, once a day in each nostril *multivitamin, ( Multivitamins with Folic Acid 1 mg oral capsule) 1 cap, Oral, oncea day *omeprazole (omeprazole 20 mg oral delayed release [...] the Following Medications: Medication list as of 09-14-13 17:12 Attention: If you have any medications at home that are not on this list, DO NOT take them until youcontact your provider for clarification. Give a copy of your medication list to your primary care provider. Update your medication list any time medications or doses are changed and carry your medication list at all times in case of emergency. Electronically Signed By: NINFA ANDREW MD Signed On:14-SEP-2013 17:12:14 Your Allergies & Intolerances Substance Reaction Symptoms Category Comments No Known Allergies Drug Your Problem List Problem Status Onset Comments Morbid Obesity Active 11/07/2011 GERD [Gastroesophageal reflux disease] Active 11/07/2011 Deformity Nasal Septal Active Menorrhagia Active Migraine Headache (CHEEMA) NOS Active Premenstrual Syndrome Active Pain Neck Active Palpitations Active Syncope And Collapse Active 08/01/13fall 2012 Your Upcoming Appointments Date Time Location Reason Provider No Appointments found Attention: Contact your local Clinic if further appointment detail needed. Your Goals/Additional instructions: Source: [facility] POWERCHART Document Id: [id number] Miscellaneous - Ninfa Andrew M.D. - 09/14/2013 5:12 PM CDT Ambulatory Discharge Medication List [address] [id number] Visit Information Name: SHILO HUMPHREYS [facility] Number: [id number] Visit Date: 09/14/2013 17:12:25 Attending Provider: NINFA ANDREW MD Primary Care Provider: NINFA ANDREW MD SHILO HUMPHREYS has been given the following list of medications: Your Medications It is important to take your medications as directed. Use a pill box or chart to help remind you to take your medications. Please let your doctor or nurse know if you have problems taking your medications. Medication/Strength How to Take Indications/Special Instructions/Comments/Notes for Patient Medication Changes/Routing docusate (docusate calcium 240 mg oral capsule) 1 cap, Oral, once a day FLUoxetine (FLUoxetine 20 mg oral tablet) 1 Tablet(s), Oral, once a day *fluticasone nasal (Flonase 50 mcg/inh nasal spray) 1 Lyle(s), Nasal, once a day in each nostril *multivitamin, ( Multivitamins with Folic Acid 1 mg oral capsule) 1 cap, Oral, oncea day *omeprazole (omeprazole 20 mg oral delayed release [...] the Following Medications: Medication list as of 09-14-13 17:12 Attention: If you have any medications at home that are not on this list, DO NOT take them until youcontact your provider for clarification. Give a copy of your medication list to your primary care provider. Update your medication list any time medications or doses are changed and carry your medication list at all times in case of emergency. Electronically Signed By: NINFA ANDREW MD Signed On:14-SEP-2013 17:12:14 Additional Information: Source: [facility] [employer] Document Id: [id number] Miscellaneous - Beckie Bernal L.P.N. - 09/14/2013 4:05 PM CDT Adult Belt Dresser Intake/History Adult Belt Dresser Intake/History Entered On: 09/14/2013 16:07 CDT Performed On: 09/14/2013 16:05 CDT by BECKIE BERNAL LPN Intake Chief Complaint : follow up Temperature Core : 37.3 DegC(Converted to: 99.1 DegF) Peripheral Pulse Rate : 76 /min Respiratory Rate : 16 /min Systolic Blood Pressure : 106 mmHg Diastolic Blood Pressure : 70 mmHg NIBP Mean : 82 mmHg BP Location : Left upper extremity Blood Pressure Cuff Size : Regular Actual Weight : 106.4 kg(Converted to: 234 lb 9 oz) Dosing Weight Clinic : 106.4 kg BECKIE BERNAL LPN - 09/14/2013 16:05 CDT General Info Languages : Bruneian BECKIE BERNAL LPN - 09/14/2013 16:05 CDT Subjective Pain Symptoms : Yes BECKIE BERNAL LPN - 09/14/2013 16:05 CDT Pain Pain Assessment Grid Pain 1 Location : Head BECKIE BERNAL LPN - 09/14/2013 16:05 CDT Dependent Habits Tobacco Use/Currently Using : No Tobacco Use/Last 12 months : No Exposure to Tobacco Smoke : Other: former Smoking Status : Former smoker BECKIE BERNAL LPN - 09/14/2013 16:05 CDT Source: [facility] [employer] Document Id: [id number] CDT!26 documented in this encounter Plan of Treatment Not on filedocumented as of this encounter Procedures Procedure Name Priority Date/Time Associated Comments Diagnosis HXZZDUMMYLAB Routine 09/14/2013 4:59 PM Results f or this CDT procedure are i n the results section. HEPATIC FUNCTION Routine 09/14/2013 4:59 PM Resul ts for this PANEL, S CDT procedure are i n the results section. AUTOMATED Routine 09/14/2013 4:59 PM Results f or this DIFFERENTIAL, B CDT procedure ar e in the results section. CYCLIC CITRULLINATED Routine 09/14/2013 4:59 PM R esults for this PEPTIDE ABS, IGG, S CDT procedur e are in the results section. SM ABS, IGG, S Routine 09/14/2013 4:59 PM Results for this CDT procedure are i n the results section. DNA DOUBLE-STRANDED Routine 09/14/2013 4:59 PM Re sults for this (DSDNA) ABS, IGG, S CDT procedur e are in the results section. SEDIMENTATION RATE, B Routine 09/14/2013 4:59 PM Results for this CDT procedure are i n the results section. CBC WITH DIFFERENTIAL, Routine 09/14/2013 4:59 PM Results for this B CDT procedure are i n the results section. RHEUMATOID FACTOR, S/P Routine 09/14/2013 4:59 PM Results for this CDT procedure are i n the results section. C-REACTIVE PROTEIN Routine 09/14/2013 4:59 PM Res ults for this (CRP), S/P CDT procedure are i n the results section. ANTINUCLEAR ABS (PRUDENCE), Routine 09/14/2013 4:59 PM Results for this S CDT procedure are i n the results section. URIC ACID, S/P Routine 09/14/2013 4:59 PM Results for this CDT procedure are i n the results section. BASIC METABOLIC PANEL, Routine 09/14/2013 4:59 PM Results for this S/P CDT procedure are i n the results section. documented in this encounter Results (ABNORMAL) Automated Differential (09/14/2013 4:59 PM CDT) [facility] Method Time Signature Absolute 2.85 1.70 - POWERCHART Neutrophils 7.00 109L Lymphocytes 2.27 0.90 - POWERCHART 2.90 X109L Monocytes 0.47 0.30 - POWERCHART 0.90 X109L Eosinophils 0.04 (L) 0.05 - POWERCHART 0.50 X109L Absolute 0.01 0.00 - POWERCHART Basophil 0.30 X109L Specimen Anatomical Collection Method Collection Time Receive d Time (Source) Location / / Volume Laterality Blood 09/14/2013 4:59 PM 4 4:59 CDT PM CDT Ninfa Andrew M.D. LAB BLOOD ADD-ON Performing Organization Address City/State/ZIP Code Phon e Number POWERCHART Sedimentation Rate (09/14/2013 4:59 PM CDT) Analysis Performed At Patho logist Time Signature Sedimentation 6 0 - 29 POWERCHART Rate, B MMHR Specimen (Source) Anatomical Collection Method Collection Time Re ceived Time Location / / Volume Laterality Blood 09/14/2013 4:59 PM CDT Ninfa Andrew M.D. LAB BLOOD ADD-ON Performing Organization Address City/[facility] Code Phon e Number POWERCHART CBC with Differential (09/14/2013 4:59 PM CDT) P athologist Signature Leukocytes 5.6 3.4 - 10.5 POWERCHART X109L Erythrocytes 3.98 3.90 - POWERCHART 5.03 [id number] Hemoglobin 12.9 12.0 - POWERCHART 15.5 GDL Hematocrit 37.8 34.9 - POWERCHART 44.5 MCV 95.0 82.0 - POWERCHART 98.0 FL Platelet Count 209 150 - 450 POWERCHART X109L HX RDW 13.1 11.9 - POWERCHART 15.5 HXDifferential? Auto POWERCHART Specimen (Source) Anatomical Collection Method Collection Time Re ceived Time Location / / Volume Laterality Blood 09/14/2013 4:59 PM CDT Ninfa Andrew M.D. LAB BLOOD ADD-ON Performing Organization Address City/[facility]/ZIP Code Phon e Number POWERCHART Uric Acid (09/14/2013 4:59 PM CDT) P athologist Signature Uric Acid, S 3.7 2.3 - 6.0 POWERCHART MGDL Specimen (Source) Anatomical Collection Method Collection Time Re ceived Time Location / / Volume Laterality Blood 09/14/2013 4:59 PM CDT Ninfa Andrew M.D. LAB BLOOD ADD-ON Performing Organization Address [facility] Phon e Number POWERCHART HXZZDUMMYLAB (09/14/2013 4:59 PM CDT) athologist Signature Phospholipid Ab <4.0 <10.0 POWERCHART IgG, S (Negative) Phospholipid Ab <4.0 <10.0 POWERCHART IgM, S (Negative) Phospholipid Ab <4.0 <10.0 POWERCHART IgA, S (Negative) APL Comment: Test Performed by: [place] [address] [employer]: Larry machuca III, M.D. Specimen (Source) Anatomical Collection Method Collection Time Re ceived Time Location / / Volume Laterality Blood 09/14/2013 4:59 PM CDT Ninfa Andrew M.D. LAB HISTORICAL ORDERS Performing Organization Address [facility] Phon e Number POWERCHART Sm Antibodies, IgG (09/14/2013 4:59 PM CDT) athologist Signature Sm Ab, IgG, S <0.2 <1.0 POWERCHART (Negative) UNITS Comment: Test Performed by: [place] [id number] [employer]: Larry machuca III, M.D. Specimen (Source) Anatomical Collection Method Collection Time Re ceived Time Location / / Volume Laterality Blood 09/14/2013 4:59 PM CDT Ninfa Andrew M.D. LAB BLOOD ADD-ON Performing Organization Address [facility] Code Phon e Number POWERCHART DNA Double-Stranded (dsDNA) Antibodies, IgG (09/14/2013 4:59 PM CDT) athologist Signature DNA <12.3 <30.0 POWERCHART Double-Stranded (Negative) Ab, IgG, S INTUML Comment: Test Performed by: [address] [place] [address] [employer]: Larry machuca III, M.D. Specimen (Source) Anatomical Collection Method Collection Time Re ceived Time Location / / Volume Laterality Blood 09/14/2013 4:59 PM CDT Ninfa Andrew M.D. LAB BLOOD ADD-ON Performing Organization Address [facility] Phon e Number POWERCHART Cyclic Citrullinated Peptide Antibodies, IgG (09/14/2013 4:59 PM CDT) Analysis Performed At Patho logist Time Signature Cyclic <15.6 <20.0 POWERCHART Citrullinated (Negative) Peptide Ab, S UNITS Comment: Test Performed by: [place] [address] [employer]: Larry machuca III, M.D. Specimen (Source) Anatomical Collection Method Collection Time Re ceived Time Location / / Volume Laterality Blood 09/14/2013 4:59 PM CDT Ninfa Andrew M.D. LAB BLOOD ADD-ON Performing Organization Address [facility] Phon e Number POWERCHART PRUDENCE (Antinuclear Antibodies) (09/14/2013 4:59 PM CDT) P athologist Signature Antinuclear Ab 0.3 <=1.0 POWERCHART Screen by IFA, S (Negative) UNITS Comment: Test Performed by: [place] [address] [employer]: Larry machuca III, M.D. Specimen (Source) Anatomical Collection Method Collection Time Re ceived Time Location / / Volume Laterality Blood 09/14/2013 4:59 PM CDT Ninfa Andrew M.D. LAB BLOOD ADD-ON Performing Organization Address [facility] Phon e Number POWERCHART Rheumatoid Factor (09/14/2013 4:59 PM CDT) P athologist Signature Rheumatoid <15 <15 INTUML POWERCHART Factor, S Comment: Test Performed by: [place] [address] [employer]: Larry machuca III, M.D. Specimen (Source) Anatomical Collection Method Collection Time Re ceived Time Location / / Volume Laterality Blood 09/14/2013 4:59 PM CDT Ninfa Andrew M.D. LAB BLOOD ADD-ON Performing Organization Address City/[facility] Phon e Number POWERCHART CRP (C-Reactive Protein) (09/14/2013 4:59 PM CDT) P athologist Signature C-Reactive <3.0 <=8.0 MGL POWERCHART Protein (CRP), S Comment: Test Performed by: [place] [address] [employer]: Larry machuca III, M.D. Specimen (Source) Anatomical Collection Method Collection Time Re ceived Time Location / / Volume Laterality Blood 09/14/2013 4:59 PM CDT Ninfa Andrew M.D. LAB BLOOD ADD-ON Performing Organization Address [facility] Phon e Number POWERCHART Hepatic Function Panel (09/14/2013 4:59 PM CDT) Patholo gist Method Time Signature Albumin, S 3.8 3.5 - 5.0 POWERCHART GMDL Alkaline 81 50 - 130 POWERCHART Phosphatase, S UNITL Aspartate 24 8 - 43 POWERCHART Aminotransferase UNITL (AST), S Alanine 23 9 - 52 POWERCHART Amniotransferase, LD UNITL Bilirubin, Total, S 0.3 0.1 - 1.0 POWERCHART MGDL Bilirubin, Direct, S 0.0 0.0 - 0.3 POWERCHAR T MGDL Total Protein, S 6.7 6.3 - 8.2 POWERCHART MGDL Specimen (Source) Anatomical Collection Method Collection Time Re ceived Time Location / / Volume Laterality Blood 09/14/2013 4:59 PM CDT Ninfa Andrew M.D. LAB BLOOD ADD-ON Performing Organization Address City/[facility]/ZIP Code Phon e Number POWERCHART BMP (Basic Metabolic Panel) (09/14/2013 4:59 PM CDT) P athologist Signature BUN (Blood Urea 11 6 - 20 POWERCHART Nitrogen), S MGDL Creatinine 0.8 0.7 - 1.2 POWERCHART MGDL Glucose 83 POWERCHART Potassium, S 4.3 3.5 - 4.8 POWERCHART MMOLL Sodium, S 141 135 - 145 POWERCHART MMOLL Chloride, S 102 100 - 108 POWERCHART MMOLL CO2 Total 28 22 - 30 POWERCHART MMOLL Calcium, Total, 9.3 8.5 - 10.5 POWERCHART S MGDL HXeGFR (MDRD) >60 MLMIN POWERCHART eGFR >60 MLMIN POWERCHART Black/ Specimen (Source) Anatomical Collection Method Collection Time Re ceived Time Location / / Volume Laterality Blood 09/14/2013 4:59 PM CDT Ninfa Andrew M.D. LAB BLOOD ADD-ON Performing Organization Address City/State/ZIP Code Phon e Number POWERCHART documented in this encounter Visit Diagnoses Not on filedocumented in this encounter
--- OUTSIDE RECORDS SUMMARY | 2022-01-15 13:34 | XMS_ITS | Encounter Summary ---
:1980 Author Organization [employer] Address [address] [address] Care Team Providers Name Role Phone Raheel Silvestre MD Primary Care Provider Reason for Visit Reason Comments Nutrition Counseling Encounter Details Date Type Department Care Team Description 01/23/2015 Office Visit [facility] Bariatric Samara Correia with Surgery & Weight A, GISELEN, LD BMI of 40.0-44.9, Center [address] [facility] adult (Primary Dx) [address] [facility] [place] [id number] [phone] Social History Tobacco Use Types Packs/Day Years Used Date Smoking Tobacco: Never Assessed Sex Assigned at Date Recorded Not on file documented as of this encounter Last Filed Vital Signs Vital Sign Reading Time Taken Comments Blood Pressure - - Pulse - - Temperature - - Respiratory Rate - - Oxygen Saturation - - Inhaled Oxygen Concentration - - Weight 127.7 kg (281 lb 9.6 oz) 01/23/2015 1:44 PM CDT Height 166.4 cm (5' 5.5) 01/23/2015 1:44 PM CDT Body Mass Index 46.15 01/23/2015 1:44 PM CDT documented in this encounter Progress Notes Samara Correia RD - 01/23/2015 2:08 PM CDT [facility] Medical Nutrition Therapy: Bariatric [facility] Follow-Up ASSESSMENT: Referring Provider: Lanie Nam MBBS Weight: 127.733 kg (281 lb 9.6 oz) Height: 1.664 m (5' 5.5) BMI: Body mass index is 46.13 kg/(m^2).. Since last RD visit: Pt feels she has done fairly well with goals. Less soda - 2-3 days per week hasone diet soda. Pt has made changes to breakfast, not always getting protein at this meal, attemptingto eat breakfast daily. Assessing hunger between meals, as has been a snacker - realizes afternoon is mainly hunger related. Pt did keep food records for visit today. Breakfast: oatmeal or cereal snack: kashi or crackers or none Lunch: comes home - sandwich or bagel/fruit etc Snack: crackers, fruit etc Dinner: meat, grain, ~veggie Snack: none or sweet or cheese etc Patient is not an appropriate candidate for desired bariatric surgery based on current dietary habits. Patient will continue medical weight management visits as required by insurance prior to consideration for bariatric surgery. Patient will return for follow up with dietitian to demonstrate lifestyle changes as noted above. Exercise: Patient is engaging in physical activity: back issues, walking/stretching DIAGNOSIS: Nutrition Diagnosis: Obesity (NC 3.3) related to excess energy intake as evidenced by BMI INTERVENTION: Exercise guidelines. Mindful eating. My Plate. Bariatric guidelines. Patient verbalizes understanding of the education. MONITORING AND EVALUATION: Patient appears moderately motivated to change Patient identified goals: 1. Protein at breakfast daily. 2. Avoid am snack - assess afternoon hunger. 3. Add veggies at L/D. Follow up with dietitian to demonstrate progress with goals. Follow up with dietitian in one month for medical weight management. Future areas of discussion: snacking, exercise, balanced meals. Time: 15 minutes. documented in this encounter Plan of Treatment Not on filedocumented as of this encounter Visit Diagnoses Diagnosis Morbid obesity with BMI of 40.0-44.9, ad ult ([facility]) - Primary documented in this encounter Care Teams Automated Manufacturing Instructor Relationship Specialty Start Date End Date Raheel Silvestre MD PCP - General 10/17/14[address] [place] [address] documented as of this encounter
--- OUTSIDE RECORDS SUMMARY | 2022-01-15 13:34 | XMS_ITS | Encounter Summary ---
:1980 Author Organization [facility] Address [address] [address] Care Team Providers Name Role Phone Raheel Silvestre MD Primary Care Provider Encounter Details Date Type Department Care Team Description 05/21/2015 Notes/Orders [facility] Cary Ceja Morbid ob esity with Surgery & Weight A, RN BMI of 45.0 -49.9, Center adult (C) (Primary [address] [facility] Dx) [address] [place], [place] [id number] Social History Tobacco Use Types Packs/Day Years Used Date Smoking Tobacco: Never Assessed Sex Assigned at Date Recorded Not on file documented as of this encounter Plan of Treatment Not on filedocumented as of this encounter Visit Diagnoses Diagnosis Morbid obesity with BMI of 45.0-49.9, ad ult ([facility]) - Primary documented in this encounter Care Teams Integrated Marketing Intern Relationship Specialty Start Date End Date Raheel Silvestre MD PCP - General 10/17/14[address] [place] [address] documented as of this encounter
--- OUTSIDE RECORDS SUMMARY | 2022-01-15 13:34 | XMS_ITS | Encounter Summary ---
:1980 Author Organization [employer] Address [address] [address] Care Team Providers Name Role Phone Raheel Silvestre MD Primary Care Provider Reason for Visit Reason Comments Nutrition Counseling Encounter Details Date Type Department Care Team Description 06/27/2015 Initial Consult [facility] Bariatric Niki Reid Morbid obesity with BMI of 40.0-44.9, adult ([facility]) (Primary Dx); Surgery & Weight N, RD Chronic low back pain Center [address] [facility] [address] [facility]. [address] [place] [address] [id number] Social History Tobacco Use Types Packs/Day Years Used Date Smoking Tobacco: Never Assessed Sex Assigned at Date Recorded Not on file documented as of this encounter Last Filed Vital Signs Vital Sign Reading Time Taken Comments Blood Pressure - - Pulse - - Temperature - - Respiratory Rate - - Oxygen Saturation - - Inhaled Oxygen Concentration - - Weight 122.7 kg (270 lb 6.4 oz) 06/27/2015 2:19 PM CDT Height 165.1 cm (5' 5) 06/27/2015 2:19 PM CDT Body Mass Index 45 06/27/2015 2:19 PM CDT documented in this encounter Progress Notes Niki Reid RD - 06/27/2015 5:38 PM CDT [facility] Medical Nutrition Therapy: Bariatric Pre-Op ASSESSMENT: Referring Provider: Dr Jolly Weight: 122.653 kg (270 lb 6.4 oz) Height: 1.651 m (5' 5) BMI: Estimated body mass index is 45 kg/(m^2) as calculated from the following: Height as of this encounter: 1.651 m (5' 5). Weight as of this encounter: 122.653 kg (270 lb 6.4 oz).. Date of Surgery: August 17, 2015. Since last RD visit: Patient has been working on increasing her water intake; add holding fluid withmeals and +/- 30 minutes. Vitamin and mineral supplements: Patient does take a multivitamin and mineral daily. Patient does take 1000 IU vitamin D daily. DIAGNOSIS: Nutrition Diagnosis: Obesity (NC 3.3) related to excess calorie intake as evidenced by BMI greater than 40. INTERVENTION: Patient has the bariatric binder and was educated on the ten day pre-operative liquid diet, diet changes necessary after the vertical sleeve gastrectomy. Patient was educated on textures, timing, fluids, portions, protein needs, and micronutrient needs. Patient was educated on use of appropriate protein supplements to meet protein needs. Protein needs are estimated at 65 grams/day. MONITORING AND EVALUATION: Patient verbalizes understanding of education. Patient will follow up with the dietitian one month after surgery. Patient was instructed to call with questions. Thank you for this referral. Time: 45 minutes. documented in this encounter Plan of Treatment Not on filedocumented as of this encounter Visit Diagnoses Diagnosis Morbid obesity with BMI of 40.0-44.9, ad ult ([facility]) - Primary Chronic low back pain Lumbago documented in this encounter Care Teams City Tax Auditor Relationship Specialty Start Date End Date Raheel Silvestre MD PCP - General 10/17/14[address] [place] [address] documented as of this encounter
--- OUTSIDE RECORDS SUMMARY | 2022-01-15 13:34 | XMS_ITS | Encounter Summary ---
:1980 Author Organization [employer] Address [address] [address] Care Team Providers Name Role Phone Raheel Silvestre MD Primary Care Provider Reason for Visit Reason Comments RESULTS, TEST Encounter Details Date Type Department Care Team Description 12/22/2014 Telephone Specialty Center 39[address] [facility] Ottoniel Rene RESULTS, TEST Education [address] [place], [place] [address] Social History Tobacco Use Types Packs/Day Years Used Date Smoking Tobacco: Never Assessed Sex Assigned at Date Recorded Not on file documented as of this encounter Nursing Notes Elisabeth Rene - 12/22/2014 10:37 AM CDT Sleep Disorders Note - pre Bariatric [facility] Sleep Screening Study date: 12/05/14 RDI (Respiratory Disturbance Index): 5/hr Low SaO2: 90% This is a normal screening study. The results were discussed with the patient by phone. No other risk factors for sleep disordered breathing are present. No further follow up with the sleep lab is required. documented in this encounter Plan of Treatment Not on filedocumented as of this encounter Visit Diagnoses Not on filedocumented in this encounter Care Teams Spray Painter Helper Relationship Specialty Start Date End Date Raheel Silvestre MD PCP - General 10/17/14[address] [place] [address] (work) documented as of this encounter
--- OUTSIDE RECORDS SUMMARY | 2022-01-15 13:34 | XMS_ITS | Encounter Summary ---
:1980 Author [facility] Address [address], [place] [address] Care Team Providers Name Role Phone Raheel Silvestre MD Primary Care Provider Encounter Details Date Type Department Care Team Description 11/28/2014 Notes/Orders [facility] Bariatric Surgery & Cary Zarate RN Weight Center [address] [facility] [address] [place], [place] [address] Social History Tobacco Use Types Packs/Day Years Used Date Smoking Tobacco: Never Assessed Sex Assigned at Date Recorded Not on file documented as of this encounter Plan of Treatment Not on filedocumented as of this encounter Visit Diagnoses Not on filedocumented in this encounter Care Teams Instructional Resource Teacher Relationship Specialty Start Date End Date Raheel Silvestre MD PCP - General 10/17/14[address] [place] [address] documented as of this encounter
--- OUTSIDE RECORDS SUMMARY | 2022-01-15 13:34 | XMS_ITS | Encounter Summary ---
:1980 Author Organization [employer] Address [address] [address] Care Team Providers Name Role Phone Raheel Silvestre MD Primary Care Provider Reason for Visit Reason Comments Nutrition Counseling Encounter Details Date Type Department Care Team Description 05/21/2015 Office Visit [facility] Bariatric Amanda Simms, Morbid obesity with Surgery & Weight RDN, LD BMI of 40.0-44.9, Center [address] [facility] adult ([facility]) (Primary [address] [facility] HV- 5th F adolfo Dx) [address] [place] [id number] [phone] Social History Tobacco Use Types Packs/Day Years [...] - - Weight 123 kg (271 lb 1.6 oz) 05/21/2015 9:25 AM IN STORE DEMONSTRATOR Height 165.1 cm (5' 5) 05/21/2015 9:25 AM IN STORE DEMONSTRATOR Body Mass Index 45.11 05/21/2015 9:25 AM IN STORE DEMONSTRATOR documented in this encounter Progress Notes Amanda Simms, GISELE - 05/21/2015 10:08 AM CST ..[facility] Medical Nutrition Therapy: Bariatric [facility] Follow-Up ASSESSMENT: Referring Provider: Lanie Nam MBBS Weight: 122.97 kg (271 lb 1.6 oz) Height: 1.651 m (5' 5) BMI: Body mass index is 45.11 kg/(m^2).. Since last RD visit: doing well with eating habits, nicely varied diet. Struggles a bit with breakfast but has some options and most times, does ok. Reaching protein needs with CIB, meats/fish/eggs, and [place] milk. Patient is an appropriate candidate for desired bariatric surgery based on current dietary habits. Exercise: Patient is engaging in physical activity: as able with disc issue, walking and equipment at home DIAGNOSIS: Nutrition Diagnosis: Overweight/Obesity (NC 3.3). related to: history..excessive oral intake as evidenced by: BMI over45. INTERVENTION: Healthy Diet and Meal planning. Patient verbalizes understanding of the education. MONITORING AND EVALUATION: Patient appears highly motivated to change Patient identified goals: 1. ..continue careful food choices to practice behaviors needed for good success with bariatric surgery. . Next visit will be bariatric education visit. Time: 30 minutes. STORE DEMONSTRATOR documented in this encounter Plan of Treatment Not on filedocumented as of this encounter Visit Diagnoses Diagnosis Morbid obesity with BMI of 40.0-44.9, ad ult ([facility]) - Primary documented in this encounter Care Teams Career Services Representative Relationship Specialty Start Date End Date Raheel Silvestre MD PCP - General 10/17/14[address] [place] [address] documented as of this encounter
--- OUTSIDE RECORDS SUMMARY | 2022-01-15 13:34 | XMS_ITS | Encounter Summary ---
:1980 Author Organization [facility] Address [address] [place] [address] Care Team Providers Name Role Phone Unavailable Primary Care Provider Unavailable Encounter Details Date Type Department Care Team Description 11/10/2011 Hospital Encounter [facility]X [facility] Michael Monae M .D. Social History Tobacco Use Types Packs/Day Years Used Date Smoking Tobacco: Never Assessed Sex Assigned at Date Recorded Not on file documented as of this encounter Last Filed Vital Signs Vital Sign Reading Time Taken Comments Blood Pressure 112/58 11/10/2011 1:57 PM CDT Pulse 62 11/10/2011 1:57 PM CDT Temperature - - Respiratory Rate - - Oxygen Saturation - - Inhaled Oxygen Concentration - - Weight 123 kg (271 lb 6.2 oz) 11/10/2011 1:57 PM CDT Height - - Body Mass Index - - documented in this encounter H&P Notes Michael Monae M.D. - 11/10/2011 1:50 PM CDT [id number] CHIEF COMPLAINT/REASON FOR VISIT OB history, physical examination for planned section. HISTORY OF PRESENT ILLNESS This patient is a 31-year-old G3, P 1-1-0-2 female with LMP 02/14/2011 and EDC 11/21/2011 at 38-3/7 weeks. Patient presents for OB visit with OB history, physical examination for planned section. She has complicated by known breech presentation. She underwent external cephalic version attempt on 10/28/2011 which was unsuccessful. The patient also has obesity. She requests elective sterilization. She has chronic constipation and GERD. The patient is scheduled for primary section with bilateral tubal segment excision for sterilization on 11/13/2011 at 38-6/7 weeks. The patient is doing well. She reports good movement. No leaking of fluid, vaginal bleeding. No cramping or contractions. No pelvic pressure. No headaches, vision changes. No shortness of breath or chest pain. No fevers or chills. No depression symptoms. The patient requests elective sterilization. She does not want any further children. She has previously discussed this with Dr. Mitchell her primary provider and she understands that sterilization is permanent and not reversible. She is aware of the alternative forms of contraception and declines these as acceptable. The patient declines repeat external cephalic version attempt and she would like to proceed forward with primary section and bilateral tubal segment excision for sterilization. CURRENT MEDICATIONS 1. vitamins 2. Ambien p.r.n. 3. Flonase p.r.n. 4. Omeprazole 5. Colace ALLERGIES No known drug allergies. SYSTEMS REVIEW As per HPI, otherwise negative. PAST MEDICAL/SURGICAL HISTORY Insomnia, constipation, GERD. Past Surgical History 1. Tonsils, adenoids as child 2. Hemorrhoidectomy 2002. Past Obstetrical History 1. Vaginal delivery 09/16/2000 at 37 weeks male infant 3,345 grams 2. Vaginal delivery 11/15/2005 female 36 weeks 2,977 grams. ADULT PREVENTATIVE SERVICES Provided by Dr. Mitchell at [facility]. These records are not available for my review. SOCIAL HISTORY Patient is . She has a history of tobacco abuse but quit 2007. No alcohol, drug use. No history of STD or PID. No history of cervical dysplasia. No history of abuse. FAMILY HISTORY No diabetes or hypertension. No breast cancer, colon cancer or ovarian cancer. LABS Blood type O+, antibody screen negative, hepatitis B surface antigen negative, serology negative, HIV negative, hemoglobin 11.7, platelets 234, rubella immune, 1-hour GTT 163. Three hour GTT is 93, 166, 136, 136, 102, normal. GBS culture 10/23/2011 negative. VITAL SIGNS WEIGHT 123.1 kg BLOOD PRESSURE 112/58 PULSE 62 RESPIRATION 20. TEMPERATURE 36.8. PHYSICAL EXAMINATION GENERAL: Well-developed, well-nourished gravid, obese female in no apparent distress. Alert and oriented times three. SKIN: Normal without evidence of rashes or lesions. HEAD: Head within normal limits. ENT: Neck is supple and within normal limits. Oropharynx is clear. No cervical adenopathy or tenderness. Trachea is midline. THYROID: No thyromegaly or tenderness. BREASTS: Deferred HEART: Regular rate and rhythm without murmur. No rubs or gallops. No JVD. No peripheral vascular disease. LUNGS: Clear to auscultation bilaterally with good inspiratory effort. ABDOMEN: Soft, gravid, obese, nontender, and nondistended. Positive bowel sounds. Fundal height is 40 cm. Positive Doptones are auscultated 148 beats per minute. Breech presentation by Bill'norman with head in the left upper quadrant. RECTUM: Declined by patient. GENITALIA: Cervix is 1-2 cm dilated, 2 cm thick, -1 station, breech presentation confirmed. SPINE: No CVA tenderness bilaterally. EXTREMITIES: No clubbing, cyanosis or edema. Nontender bilaterally. GAIT: Normal gait. NEURO: No gross motor or sensory deficits noted. IMPRESSION/REPORT/PLAN 1. Intrauterine at 38-3/7 weeks. Positive cardiac activity. 2. Breech presentation. Status post failed version attempt on 10/28/2011 3. Request elective sterilization. 4. Obesity 5. Insomnia stable on medication 6. GERD stable on medication 7. Chronic constipation stable on medication Plan 1. I discussed management options with the patient. I discussed option of repeat external cephalic version. The patient declines. The patient would like to proceed forward with primary section and bilateral tubal segment excision for sterilization. I discussed the option of breech vaginal delivery but do not recommend this. The patient verbalized understanding and agrees 2. Patient is scheduled for primary section with bilateral tubal segment excision for sterilization on 11/13/2011 at 38-6/7 weeks at [facility]. I reviewed the risks, benefits, alternatives and indication of the procedure with the patient including risk of infection, bleeding, need for blood transfusion, injury to organs with need for repair, risk of injury to fetus, risk of uterine hysterectomy, anesthesia risk, DVT risk, cardiovascular risk, unexpected findings and rarely . I reviewed with the patient the sterilization failure rate of less than 1%. I reviewed with the patient the risk for ectopic . I reviewed with the patient the increased risk of post sterilization depression. Patient verbalized understanding and desires to proceed. Surgical consent form signed. 3. I notified Dr. Mitchell of the patient's surgery so he can be present as director of strategic marketing 4. The patient will be n.p.o. for at least 6 hours prior to surgery 5. The patient will meet with anesthesia prior to surgery 6. Will check CBC on admission to labor and delivery 7. Routine OB precautions, recommendations and instructions are reviewed with the patient includingfetal movement and kick counts 8. Labor precautions reviewed with the patient. Michael Monae M.D./maury Electronically Signed By: MICHAEL MONAE MD On: 11/11/2011 08:49 PM Source: [facility] MHSDOLBEYNONRADSYS Document Id: [id number] documented in this encounter Miscellaneous Notes Miscellaneous - Michael Monae M.D. - 11/10/2011 5:02 PM CDT Ambulatory [place] [address] Visit Information Name: SHILO HUMPHREYS Current Date: 11/10/2011 17:02:01 Physicians Attending Provider: MICHAEL MONAE MD Primary [...] antepartum Active 11/07/2011 Morbid Obesity Active 11/07/2011 GERD [Gastroesophageal reflux disease] Active 11/07/2011 Encounter for Sterilization Active 11/10/2011 Your Upcoming Appointments Date Time Location Reason Provider 11/24/2011 16:30 [facility] LICENSED MASTER SOCIAL WORKER post-op Michael Monae MD Your Goals/Additional instructions: Source: [facility] POWER[employer]ART Document Id: [id number] Miscellaneous - Michael Monae M.D. - 11/10/2011 5:02 PM CDT [place] [address] Visit Information Name: SHILO HUMPHREYS Visit Date: 11/10/2011 17:02:00 Attending Provider: MICHAEL MONAE MD Primary Care [...] your provider for clarification. Additional Information: Source: [facility] [employer] Document Id: [id number] Miscellaneous - Elisabeth Peña LBrettP.N. - 11/10/2011 1:57 PM CDT Adult Inner Tube Inserter Intake/History Adult Inner Tube Inserter Intake/History Entered On: 11/10/2011 13:59 CDT Performed On: 11/10/2011 13:57 CDT by ELISABETH PEÑA Intake Chief Complaint : OB visit 38 2/7 weeks, pre-op fpr Peripheral Pulse Rate : 62/min Heart Rhythm : Regular Systolic Blood Pressure : 112mmHg Diastolic Blood Pressure : 58mmHg NIBP Mean : 76mmHg BP Location : Right upper extremity Blood Pressure Cuff Size : Regular Actual Weight : 123.1kg(Converted to: 271lb 6oz) Weight Source : Standing scale Dosing Weight Clinic : 123.10kg ELISABETH PEÑA - 11/10/2011 13:57 CDT Subjective Pain Symptoms : No ELISABETH PEÑA - 11/10/2011 13:57 CDT Dependent Habits Tobacco Use/Currently Using : No Exposure to Tobacco Smoke : Other: none Smoking Status : Never smoker ELISABETH PEÑA - 11/10/2011 13:57 CDT Allergy Allergies (Active) NKA Estimated Onset Date: Unspecified ; Created By: ELISABETH PEÑA; Reaction Status: Active ; Category: Drug ; Substance: NKA ; Type: Allergy ; Updated By: ELISABETH PEÑA; Reviewed Date: 11/10/201113:56 CDT Source: [facility] [employer] Document Id: [id number] documented in this encounter Plan of Treatment Not on filedocumented as of this encounter Visit Diagnoses Not on filedocumented in this encounter
--- OUTSIDE RECORDS SUMMARY | 2022-01-15 13:34 | XMS_ITS | Encounter Summary ---
:1980 Author Organization [facility] [facility] [employer] Address [address] [place] [id number] Care Team Providers Name Role Phone Raheel Silvestre MD Primary Care Provider Reason for Visit Reason Comments Nutrition Counseling Encounter Details Date Type Department Care Team Description 02/20/2015 Office Visit [facility] Amanda Tapia, Morbid obe sity with Surgery & Weight RDN, LD BMI of 40.0-44.9, Center [address] adult (Primary Dx) [address] [place] [address] [id number] [phone] Social History Tobacco Use Types Packs/Day Years Used Date Smoking Tobacco: Never Assessed Sex Assigned at Date Recorded Not on file documented as of this encounter Last Filed Vital Signs Vital Sign Reading Time Taken Comments Blood Pressure - - Pulse - - Temperature - - Respiratory Rate - - Oxygen Saturation - - Inhaled Oxygen Concentration - - Weight 127.5 kg (281 lb 1.6 oz) 02/20/2015 10:23 AM FISHER EEL Height 165.1 cm (5' 5) 02/20/2015 10:23 AM FISHER EEL Body Mass Index 46.78 02/20/2015 10:23 AM FISHER EEL documented in this encounter Progress Notes Amanad Tapia, RD - 02/20/2015 10:29 AM CST [facility] Education Medical Nutrition Therapy: Bariatric MWM Follow-Up ASSESSMENT: Referring Provider: Lanie Nam MBBS Weight: 127.506 kg (281 lb 1.6 oz) Height: 1.651 m (5' 5) BMI: Body mass index is 46.78 kg/(m^2).. Since last RD visit: Eating more protein foods at breakfast. Including fruit and veg at L/D. Still snacking at employee break time but less often and bringing own snack choice. Patient is not an appropriate candidate for desired bariatric surgery based on current dietary habits. DIAGNOSIS: Nutrition Diagnosis: Overweight/Obesity (NC 3.3). related to: excess energy intake as evidenced by: BMI @44. INTERVENTION: Healthy Diet and Meal planning. Lean protein sources. Mindful eating. Patient verbalizes understanding of the education. MONITORING AND EVALUATION: Patient appears moderately motivated to change Patient identified goals: 1. Try hot drink in place of solid am snack. 2. hunger vs habit awareness. 3. hold fluid one meal/day. 4. monitor fluid intake- goal >64 fl oz/day. Follow up with dietitian in one month for medical weight management. Future areas of discussion: exercise, f/u on snacking habits. Time: 30 minutes. ER EEL documented in this encounter Plan of Treatment Not on filedocumented as of this encounter Visit Diagnoses Diagnosis Morbid obesity with BMI of 40.0-44.9, ad ult ([facility]) - Primary documented in this encounter Care Teams Log Loader Relationship Specialty Start Date End Date Raheel Silvestre MD PCP - General 10/17/[address] [place] [address] documented as of this encounter
--- OUTSIDE RECORDS SUMMARY | 2022-01-15 13:34 | XMS_ITS | Encounter Summary ---
:1980 Author Organization [facility] Address [address] [place] [address] Care Team Providers Name Role Phone Unavailable Primary Care Provider Unavailable Encounter Details Date Type Department Care Team Description 07/21/2014 Hospital Encounter HX [facility] Raúl Sky M.D. Social History Tobacco Use Types Packs/Day Years Used Date Smoking Tobacco: Never Assessed Sex Assigned at Date Recorded Not on file documented as of this encounter Miscellaneous Notes Miscellaneous - Raúl Sky M.D. - 07/21/2014 3:31 PM CDT Normal Results Letter 21 July 2014 SHILO JULIANN [address] [facility] [id number] Dear SHILO HUMPHREYS, I am pleased to report that your results from the following diagnostic test(s) are normal. Please follow up with us as we discussed during your visit or sooner if you have any concerns. If you have questions or concerns, please do not hesitate to call our office. Result Name Current Result Previous Result Normal Range UA Color STRAW 07/21/2014 STRAW 07/15/2014 UA Clarity Clear 07/21/2014 (*) Slightly Cloudy 07/15/2014 Clear - UA Spec Grav 1.010 07/21/2014 1.015 07/15/2014 UA pH 7.0 07/21/2014 6.0 07/15/2014 UA Protein (mg/dL) Negative 07/21/2014 Trace 07/15/2014 Negative - UA Glucose (mg/dL) Negative 07/21/2014 Negative 07/15/2014 Negative - UA Ketones (mg/dL) Negative 07/21/2014 Negative 07/15/2014 Negative - UA Bili Negative 07/21/2014 Negative 07/15/2014 Negative - UA Urobilinogen (mg/dL) 0.2 07/21/2014 0.2 07/15/2014 0.2 - UA Blood Negative 07/21/2014 (*) Large 07/15/2014 Negative - UA Nitrite Negative 07/21/2014 Negative 07/15/2014 Negative - UA Leuk Est Negative 07/21/2014 (*) Small 07/15/2014 Negative - UR WBC (/HPF) Occ-3 07/21/2014 (*) 51-100 07/15/2014 None Seen - UR RBC (/HPF) None Seen 07/21/2014 (*) 31-40 07/15/2014 None Seen - UR Squamous Epi Cells (/HPF) (*) 21-30 07/21/2014 (*) 4-10 07/15/2014 None Seen - UR Bacteria (*) Present 07/21/2014 (*) Present 07/15/2014 None Seen - Sincerely, RAÚL SKY [address] [place] [address] Electronic Signature Electronically Signed By: RAÚL RODRIGUEZ MD On: 21 July 2014 This document has images extracted. Source: [facility] POWERCHART Document Id: [id number] Electronically signed by Conversion, [facility] Actuarial Associate [id number] at 08/31/2016 4:27 PM CDT documented in this encounter Plan of Treatment Not on filedocumented as of this encounter Procedures Procedure Name Priority Date/Time Associated Comments Diagnosis URINALYSIS WITH Routine 07/21/2014 8:49 AM Result s for this MICROSCOPIC CDT procedure are i n the results section. documented in this encounter Results (ABNORMAL) Urinalysis, Complete, Includes Microscopic (07/21/2014 8:49 AM CDT) [facility] Method Time Signature HXUR WBC. Occ-3 None Seen POWERCHART HPF HXUR RBC. None Seen None Seen POWERCHART HPF HXUR Bacteria, Present (A) None Seen POWERCHART Squamous 21-30 (A) None Seen POWERCHART Epithelial HPF HXUr Color STRAW POWERCHART Clarity Clear Clear POWERCHART Glucose Negative Negative POWERCHART MGDL HXBILIRUBIN Negative Negative POWERCHART Ketones, QL(U) Negative Negative POWERCHART MGDL Specific 1.010 POWERCHART [place], POCT, U pH, POCT, Urine 7.0 POWERCHART Protein, Ur, Dip Negative Negative POWERCHART MGDL Urobilinogen 0.2 0.2 MGDL POWERCHART HXNITRITE Negative Negative POWERCHART HXBLOOD Negative Negative POWERCHART Leukocyte Negative Negative POWERCHART Esterase Specimen (Source) Anatomical Collection Method Collection Time Re ceived Time Location / / Volume Laterality Urine, First 07/21/2014 8:49 AM Voided CDT Raúl Sky M.D. LAB URINE ORDERABLES Performing Organization Address City/State/ZIP Code Phon e Number POWERCHART documented in this encounter Visit Diagnoses Not on filedocumented in this encounter
--- OUTSIDE RECORDS SUMMARY | 2022-01-15 13:34 | XMS_ITS | Encounter Summary ---
:1980 Author Organization [facility] Address [address] [place] [address] Care Team Providers Name Role Phone Raheel Silvestre MD Primary Care Provider Reason for Visit Reason Comments CONSULT Encounter Details Date Type Department Care Team Description 06/27/2015 Initial Consult [facility] Orlando Jolly, Morbid obesity with BMI of 40.0-44.9, adult ([facility]) (Primary Dx); Surgery & Weight [facility] Chronic low back pain Center [address] [facility] [address] [facility] [place] [id number] Social History Tobacco Use Types Packs/Day Years Used Date Smoking Tobacco: Never Assessed Sex Assigned at Date Recorded Not on file documented as of this encounter Last Filed Vital Signs Vital Sign Reading Time Taken Comments Blood Pressure 142/81 06/27/2015 12:39 PM CDT Pulse - - Temperature - - Respiratory Rate - - Oxygen Saturation - - Inhaled Oxygen Concentration - - Weight 122.7 kg (270 lb 6.4 oz) 06/27/2015 12:39 PM CDT Height 166.4 cm (5' 5.5) 06/27/2015 12:39 PM CDT Body Mass Index 44.31 06/27/2015 12:39 PM CDT documented in this encounter Patient Instructions Patient InstructionsMt eTrrell RN - 06/27/2015 12:41 PM CDT 10 days before surgery: Begin your high protein liquid diet. 7 days before surgery: Discontinue the use of NSAIDS (ibuprofen, Advil, Aleve, Motrin, etc.) and aspirin. Tylenol is ok. Discontinue the use of fish oil or flax seed oil supplements. You will receive a courtesy call from your nurse. The day before surgery: Discontinue the high protein liquid diet and have clear liquids only. Nothing by mouth after midnight except the medications you are instructed to take. When showering before surgery, please clean well inside your naval as there will be an incision nearthere. Use CHG wipes that were given to you at surgeon consult as directed. The day of surgery: Be sure you have necessary food items in the home prior to surgery, i.e. clear juices, clear broth, sugar free jello, sugar free fluids, etc. Review the surgery and follow-up sections of your 3-ring binder and bring it with you to the hospital and to all future appointments. If you use CPAP, clean the machine well and bring it with you to the hospital. Someone from the sleep center will contact you before surgery. documented in this encounter Progress Notes Mt Terrell RN - 06/27/2015 9:50 PM CDT Preoperative Teaching - Bariatric Surgery Patient viewed the preoperative teaching video. Teaching regarding Skin preparation with CHG cloth was completed. Verbalizes understanding. Care line pamphlet reviewed. Had an opportunity to have all questions answered. Orlando Jolly MBBS - 06/27/2015 9:50 PM CDT [facility] Bariatric Surgery Consult Jenny Jiménez is a 34 y.o. year-old female patient of Dr. Nam who presents for consultation regarding Morbid obesity. HPI: She has had problems with obesity since adolescence. Patient has been through our education and evaluation process and felt to be a satisfactory candidate for surgery. Estimated body mass index is 44.3 kg/(m^2) as calculated from the following: Height as of this encounter: 5' 5.5 (166.4 cm). Weight as of this encounter: 270 lb 6.4 oz (926969 g). Patient Active Problem List Diagnosis ??? Morbid obesity with BMI of 40.0-44.9, adult ([facility]) ??? Chronic low back pain PMHx/SHx/FHx: Past Medical History Diagnosis Date ??? Obesity (HIGH RISK) ??? Low back pain (HIGH RISK) ??? Retinal vascular changes Past Surgical History Procedure Laterality Date ??? Tubal ligation with C section ??? section pfannenstiel incision ??? Tonsillectomy ??? Dumont tooth extraction ??? Anus surgery Family History Problem Relation Age of Onset ??? Anesth Problems Mother ??? Obesity Mother ??? Alcohol Abuse Father ??? Osteoarthritis Father ??? Depression Sister ??? Obesity Sister ??? Bipolar Disorder Paternal Aunt ??? Anxiety Disorder Maternal Grandmother ??? Cancer Maternal Grandmother ??? CAD Maternal Grandfather ??? Cancer Paternal Grandmother History Social History ??? Marital Status: Spouse Name: N/A ??? Number of Children: N/A ??? 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 Smoking status: Former Smoker Quit date: 01/05/2008 ??? Smokeless tobacco: Not on file Comment: quit january 7 years ago. ??? Alcohol Use: 0.6 oz/week 1 Cans of beer per week Comment: rarely (perhaps monthly) ??? Drug Use: No ??? Sexual Activity: Partners: Male Control/ Protection: Surgical Other Topics Concern ??? Not on file Social History Narrative Medications/Allergies: Outpatient Prescriptions as of 06/27/2015: acetaminophen (TYLENOL) 325 mg tablet Take 325-650 mg by mouth every 4 hours as needed for Pain. Maximum 4000mg per 24 hours Disp: Rfl: cholecalciferol (VITAMIN D3) 50,000 unit Take 1 capsule by mouth once a week for 60 days. Disp: 8 capsule Rfl: 0 Cholecalciferol, Vitamin D3, 2,000 unit Tab Take 1 tablet by mouth daily (every 24 hours). Indications: PREVENTION OF VITAMIN D DEFICIENCY Disp: Rfl: metroNIDAZOLE (METROGEL) 0.75 % gel Apply topically 2 times daily. Disp: Rfl: minocycline (MINOCIN, DYNACIN) 100 mg capsule Take 100 mg by mouth daily (every 24 hours). Indications: SKIN AND SKIN STRUCTURE INFECTION Disp: Rfl: pediatric multivitamin (POLY--ARPITA) chewable tablet Take 1 tablet by mouth daily (every 24 hours). Indications: VITAMIN DEFICIENCY PREVENTION Disp: Rfl: zolpidem (AMBIEN) 10 mg tablet Take 10 mg by mouth at bedtime as needed for Sleep. Disp: Rfl: No current facility-administered medications on file as of 06/27/2015. Review of patient's allergies indicates no known allergies. Prior abdominal surgery: Pfannenstiel incision and tubal ligation Review Of Systems: GENERAL: Denies fever, chills, night sweats, or changes in weight. DERM: Denies any new skin conditions, rashes or changing moles. EYES: Denies recent visual changes. ENT: Negative for hearing loss RESP: Negative for dyspnea on exertion CV: Negative for exertional chest pain or pressure GI: Negative for abdominal pain, diarrhea, dysphagia, nausea, Positive for constipation less than once a week, heartburn or reflux only when she has red sauce Female: Negative for- dysuria and frequency MUSCULOSKELETAL: Positive for back pain, L4-5 bulging disc - conservative management NEURO: Negative for seizures PSYCH: Negative for anxiety, depression HEME/LYMPHATIC/IMMUNO: Negative for bleeding disorder, bruising ENDO: Negative for cold intolerance, heat intolerance Physical Exam: Vitals: BP 142/81 mmHg Ht 5' 5.5 (166.4 cm) Wt 270 lb 6.4 oz (093743 g) BMI 44.30 kg/m2 Weight at start of program: 279.6 lbs. General Appearance: awake, alert, oriented, in no acute distress Skin: Skin color, texture, turgor normal. Neck: neck- supple, no mass, non-tender Lymphatic: absent Lungs: Normal expansion. Clear to auscultation. No rales, rhonchi, or wheezing. Heart: Heart regular rate and rhythm No peripheral edema Abdomen: Soft, non-tender, No organomegaly or masses. Extremities: Extremities warm to touch and pink Musculoskeletal: negative Neurologic: negative findings: mental status intact Psych: alert and appropriate Right upper quadrant ultrasound shows no cholelithiasis. I have reviewed the Ultrasound images. Labs reviewed include Hgb A1C 5.6,AST16, ALT19,Alk Phos 77 Assessment: Morbid obesity. Unsucessful attempts at weight Loss through non-surgical means Multiple comorbidities related to Obesity. They have been through our education and evaluation process and are felt to be a satisfactory candidate for surgery. Estimated body mass index is 44.3 kg/(m^2) as calculated from the following: Height as of this encounter: 5' 5.5 (166.4 cm). Weight as of this encounter: 270 lb 6.4 oz (474459 g). Jenny Jiménez meets criteria for bariatric surgery. Surgical Risk Factors include:Morbid obesity, back pain Plan: I have explained in thorough detail the pros and cons of a laparoscopic adjustable gastric banding, laparoscopic vertical sleeve gastrectomy and laparoscopic Jean Pierre-en-Y gastric bypass. I have explained common reasons people fail bariatric surgery including no exercise program, frequent eating or drinking of high calorie foods, grazing, drinking with meals and high carbohydrate diets that do not lend themselves to exterminator helper satiety. I have reviewed on a line by line basis the Commitment to Director [facility] Lifestyles Changes document. The patient had a chance to have all their question answered and understood the document and signed the document. A patient must achieve the result they desire through conscious purposeful living. They cannot get the results accidently. They must on a daily basis have a have a decreased caloric intake and at the same time as an increased caloric expenditure. The biggest risk of bariatric surgery is gaining weight in the future and the second biggest risk isnot getting all the weight of one desires in the first place. I have requested and obtained a commitment for lifetime follow-up. Patient wishes to proceed with laparoscopic vertical sleeve gastrectomy. I have explained the risk and complications which include but are not limited to: open surgery, bleeding, infection, bowel injury, esophageal injury, sleeve leaks that can be difficult to control, bowel obstruction, recurring weight gain, nutritional deficiencies, DVT, PE, CVA, LA, samanta- operative . I have also discussed the risk of within the first two years in women of childbearing age. Orlando Jolly MD FACS documented in this encounter Plan of Treatment Not on filedocumented as of this encounter Visit Diagnoses Diagnosis Morbid obesity with BMI of 40.0-44.9, ad ult ([facility]) - Primary Chronic low back pain Lumbago documented in this encounter Care Teams Base Ply Hand Relationship Specialty Start Date End Date Raheel Silvestre MD PCP - General [address] [place] [address] documented as of this encounter
--- OUTSIDE RECORDS SUMMARY | 2022-01-15 13:34 | XMS_ITS | Encounter Summary ---
:1980 Author Organization [facility] Address [address] [place] [address] Care Team Providers Name Role Phone Raheel Silvestre MD Primary Care Provider Reason for Visit Reason Comments Follow-up Encounter Details Date Type Department Care Team Description 12/21/2014 Office Visit [facility] John Martinez, Tamara Clayton deficiency (Primary Dx); & Weight Center Morbid obesity with BMI of 40.0-44.9, ad ult [address] [facility] [place] [id number] Social History Tobacco Use Types Packs/Day Years Used Date Smoking Tobacco: Never Assessed Sex Assigned at Date Recorded Not on file documented as of this encounter Progress Notes John Martinez MD - 12/21/2014 11:03 AM CDT [facility] Recheck 12/21/2014 Subjective: Jenny Jiménez is a 34 y.o. female who returns for review of labs. No major issues or comorbidities are noted at this time. Patient OK to move forward to next round Objective: EKG: NSR Labs: ELevated TG and Total Cholesterol A1c 5.6% Vit D 18 Otherwise lab are normal Assessment/Plan: #1 Obesity OK to proceed to next round No need for samanta-op beta blockade No need for stress test Will need RUQ US Vitamin replacement ordered John Martinez M.D. Bariatrician [facility] Total Time: 15 min ; Counseling Time: 15min documented in this encounter Plan of Treatment Not on filedocumented as of this encounter Visit Diagnoses Diagnosis Vitamin D deficiency ([facility]) - Primary Unspecified vitamin D deficiency Morbid obesity with BMI of 40.0-44.9, ad ult ([facility]) documented in this encounter Care Teams Production Recorder Relationship Specialty Start Date End Date Raheel Silvestre MD PCP - General 10/17/[address] [place] [address] documented as of this encounter
--- OUTSIDE RECORDS SUMMARY | 2022-01-15 13:34 | XMS_ITS | Encounter Summary ---
:1980 Author Organization [facility] Address [address] [place] [address] Care Team Providers Name Role Phone Unavailable Primary Care Provider Unavailable Encounter Details Date Type Department Care Team Description 08/01/2013 Hospital Encounter HX [facility] Ayaan Andrew M.D. [address] [place], [place] [address] (Wo rk) Social History Tobacco Use Types Packs/Day Years Used Date Smoking Tobacco: Never Assessed Sex Assigned at Date Recorded Not on file documented as of this encounter Last Filed Vital Signs Vital Sign Reading Time Taken Comments Blood Pressure 106/78 08/01/2013 4:28 PM CDT Pulse 80 08/01/2013 4:28 PM CDT Temperature - - Respiratory Rate 16 08/01/2013 4:28 PM CDT Oxygen Saturation - - Inhaled Oxygen Concentration - - Weight 106 kg (233 lb 11 oz) 08/01/2013 4:28 PM CDT Height - - Body Mass Index - - documented in this encounter Progress Notes Ninfa Andrew M.D. - 08/01/2013 4:21 PM CDT [id number] CHIEF COMPLAINT/REASON FOR VISIT Multiple issues. HISTORY OF PRESENT ILLNESS A 33-year-old female, presents to clinic for a second opinion on several health issues. Has been having what she refers to as her headaches. Further discussion reveals, she has several different types of headaches. One in the back of her head she feels is related to a fall a few years ago when she slipped landing on the cement on the back of her head, no loss of consciousness but she hit hard. Since that time, she has had pain with development of lumps at the back of her head. 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 Has had some episodic therapy since that time but is never really totally resolved. Also has a type of headache that occurs right beside her nose is quite severe in nature. Has another type of headache and she has jagged lines, sometimes see spots although over the last few months she has been having the spots present and they do not really go away. Glare makes these symptoms worse. Also has a feeling that her hearing is decreased. She is not interested in a hearing aid. She has not had a formal hearing report. Has been on Ambien for the last 5 or 6 years secondary to poor sleep. While it does help her with initiation, sheis not doing very well with maintenance and becomes tearful at the discussion. Would like to get offof this medicine if she could. She has been having heavy monthly menses lasting quite a few days with cramps, with pain, with intercourse since the of her baby in 2011. Her last well- woman exam was following the of her baby. She has also had palpitations on and off near daily. Had a syncopal event following the use of Ambien and a single beer with 2 episodes that same night fall of 2012. Did see her provider and had EKG. Has never had a Holter although the palpitations have been going on for some time. Of note, her mother has similar palpitations but she is not clear of the diagnoses. She feels chronically short of breath especially when she exercises and was told she had asthma although she has never really had a formal breathing test. Did trial Advair but was not sure if it was helpful. Has had chronic problems with her bowels frequently using milk of magnesia or enema for some time. Occasionally when she wipes, she will have blood. Has never been told she had diabetes or thyroid problems. Since she began the Ambien, she does have a bit of unusual dreams but nothing worrisome. Did start some Flonase for her nasal symptoms, but it has really not found it very helpful. Has been under some increased stress. EMR reviewed. MEDICATIONS 1. Ambien 10 mg at bedtime near daily, outside provider. 2. History of vitamins but not at the present time. 3. Flonase 2 squirts each nostril near daily. 4. Omeprazole 20 mg daily. 5. Knsa-bef-pqidlsq Colace once a day to twice a day, two or 3 times per week basis. 6. Fluoxetine 20 mg daily to begin tomorrow. PREVENTIVE SERVICES: Tobacco quit January 2008 with no recurrence. Mammogram not applicable secondary to stated age. Pap smear fall 2011, chlamydia not applicable secondary to stated age. Colon screen not applicable secondary to stated age. Depression no. Asthma no. Lipids 05/22/2013 work exam, tetanus 01/03/2011, Pneumovax not applicable secondary to stated age. Influenza 02/02/2013. VITAL SIGNS Weight 106 kilos, temperature 36.8, respiratory rate 16, pulse 80, systolic 106, diastolic 78. PHYSICAL EXAMINATION GENERAL: Neatly dressed, well groomed. HEENT: Head no evidence of trauma, tenderness, masses. Ears: TMs are stanley. Good visualization of landmarks. Nose, septal deviation to the right with very small nasal passages on that side. Oral no pharyngeal erythema. NECK: Range of motion consistent with patient's stated age, body habitus, paraspinous cervical muscle bellies are tight with tenderness at the insertion site. Range of motion as noted is full, some tenderness going into the upper thoracic region. Slight 2 grooves are noted on the bilateral shoulders. LUNGS: Clear to auscultation. CARDIOVASCULAR: Regular rate and rhythm. ABDOMEN: Bowel sounds are present. EXTREMITIES: No edema. MENTAL: Speech is of normal rate and volume, articulate, coherent, spontaneous with no notation of abnormalities. Thought processes reveal intact abstract reasoning and computation. No loose tangentialcircumstantial thoughts. No hallucinations. No delusions. No preoccupation with violence. No homicidal or suicidal ideations. Marked psychosocial No ruminations. Gaining insight into situation and illness process. Oriented to person, place and time. Recent and remote memory are intact. Attention span and concentration are near baseline. Language and fund of knowledge suggest average intellect. Mood and affect reflect no true depression, marked anxiety. No agitation, hypomania and marked emotional lability. IMPRESSION/REPORT/PLAN 1. Septal deformity with migraine variant. 2. Menorrhagia. 3. Dyspareunia. 4. Obesity. 5. Neck pain. 6. Palpitations. 7. PMS. 8. Gastroesophageal reflux disease. 9. History of syncope and collapse. 10. Rectal bleeding PLAN: Patient has multiple health issues which are in need of an evaluation. Her last well-woman exam was in 2011. She does need a pelvic evaluation. This will be deferred for the next couple of weeks.Risks and benefits of medications discussed. All questions answered. Given the fact she is having some, of what appeared to be floaters, she will follow up with her chin strap sewer for additional review. Some of the symptoms could indeed reflect a migraine variant. Will likely need a Holter monitor and additional cardiac evaluation. Discussed possibility of a CT scan although do not suspect any intracranial abnormality but suspect her pain is related to myofascial discomfort and breast hypertrophy related to her obesity. Would recommend following up with Dr. Garner for additional treatment, slip is given for this department. She has subjective sensation and decreased hearing and a hearing test screen could be considered. Would recommend formal pulmonary function studies given the shortness of breath with exercise to confirm or disprove whether not she has asthma. She has had a simple spirometryexam but no methacholine challenge. With her pelvic exam will recommend additional evaluation of herrectal area. Has had a history of some type of hemorrhoid evaluation. This may explain some of her symptomology in this region but a visual evaluation would be advised. Will recommend beginning the fluoxetine. Hopefully with time, she will be able to wean off of the Ambien.May need to consider some other medications, given the complex multifactorial symptomology. Due to the septal deviation and the sinus migraine syndrome, she may need to consider ENT evaluation. Signs and symptoms leading to urgent evaluation are reviewed. Spent 20 of the 35 minute visit in discussion. Follow up as planned. She iscomfortable with the above. Ninfa Andrew M.D./anurag Electronically Signed By: NINFA ANDREW MD On: 08/02/2013 10:14 AM Modified by and Electronically Signed by: NINFA ANDREW MD On: 08/02/2013 10:14 AM Source: [facility] MHSDOLBEYNONRADSYS Document Id: [id number] documented in this encounter Nursing Notes Beckie Bernal, CaridadP.N. - 08/03/2013 11:28 AM CDT Labs 08-01-13 Result card sent. Electronically Signed By: BECKIE BERNAL LPN On: 08/03/2013 11:28 AM Source: [facility] POWERCHART Document Id: [id number] documented in this encounter Miscellaneous Notes Miscellaneous - Ninfa Andrew M.D. - 08/01/2013 6:28 PM CDT Ambulatory Patient Summary [address] [id number] Visit Information Name: SHILO HUMPHREYS [facility] Number: [id number] Current Date: 08/01/2013 18:28:36 Physicians Attending Provider: NINFA ANDREW MD Primary [...] tablet) 1 Tablet(s), Oral, once a day New Routed to [address] [id number] fluticasone nasal (Flonase 50 mcg/inh nasal spray) 1 Jay(s), Nasal, once a day in each nostril *multivitamin, ( Multivitamins with Folic Acid 1 mg oral capsule) 1 cap, Oral, oncea day omeprazole (omeprazole 20 mg oral [...] the Following Medications: Medication list as of 08-01-13 18:28 Attention: If you have any medications at [...] Electronically Signed By: NINFA ANDREW MD Signed On:01-AUG-2013 18:28:24 Your Allergies & Intolerances Substance Reaction Symptoms [...] appointment detail needed. Your Goals/Additional instructions: Source: [facility] POWERCHART Document Id: [id number] Miscellaneous - Ninfa Andrew M.D. - 08/01/2013 6:28 PM CDT Ambulatory Discharge Medication List [address] [id number] Visit Information Name: SHILO HUMPHREYS [facility] Number: [id number] Visit Date: 08/01/2013 18:28:35 Attending Provider: NINFA ANDREW MD Primary Care [...] tablet) 1 Tablet(s), Oral, once a day New Routed to [address] [id number] fluticasone nasal (Flonase 50 mcg/inh nasal spray) 1 Jay(s), Nasal, once a day in each nostril *multivitamin, ( Multivitamins with Folic Acid 1 mg oral capsule) 1 cap, Oral, oncea day omeprazole (omeprazole 20 mg oral [...] the Following Medications: Medication list as of 08-01-13 18:28 Attention: If you have any medications at [...] Electronically Signed By: NINFA ANDREW MD Signed On:01-AUG-2013 18:28:24 Additional Information: Source: [facility] POWERCHART Document Id: [id number] Miscellaneous - Beckie Bernal L.P.N. - 08/01/2013 4:28 PM CDT Adult Computer Science Professor Intake/History Adult Computer Science Professor Intake/History Entered On: 08/01/2013 16:31 CDT Performed On: 08/01/2013 16:28 CDT by BECKIE BERNAL LPN Intake Chief Complaint : migraine Temperature Core : 36.8 DegC(Converted to: 98.2 DegF) Peripheral Pulse Rate : 80 /min Respiratory Rate : 16 /min Systolic Blood Pressure : 106 mmHg Diastolic Blood Pressure : 78 mmHg NIBP Mean : 87 mmHg BP Location : Left upper extremity Blood Pressure Cuff Size : Large Actual Weight : 106 kg(Converted to: 233 lb 11 oz) Dosing Weight Clinic : 106 kg BECKIE BERNAL LPN - 08/01/2013 16:28 CDT General Info Languages : Albanian BECKIE BERNAL LPN - 08/01/2013 16:28 CDT Subjective Pain Symptoms : Yes BECKIE BERNAL LPN - 08/01/2013 16:28 CDT Pain Pain Assessment Grid Pain 1 Pain 2 Location : Head Abdomen BECKIE BRENAL LPN - 08/01/2013 16:28 CDT BECKIE BERNAL LPN - 08/01/2013 16:28 CDT Dependent Habits Tobacco Use/Currently Using : No Tobacco Use/Last 12 months : No Exposure to Tobacco Smoke : Other: former Smoking Status : Former smoker BECKIE BERNAL LPN - 08/01/2013 16:28 CDT Source: [facility] Document Id: [id number]!28 documented in this encounter Plan of Treatment Not on filedocumented as of this encounter Procedures Procedure Name Priority Date/Time Associated Diagnosis Comme nts AUTOMATED Routine 08/01/2013 5:32 PM Results f or this DIFFERENTIAL, B CDT procedure ar e in the results section. CBC WITH Routine 08/01/2013 5:32 PM Results f or this DIFFERENTIAL, B CDT procedure ar e in the results section. THYROID-STIMULATING Routine 08/01/2013 5:32 PM Re sults for this HORMONE-SENSITIVE CDT procedure are in (S-TSH) the results section. documented in this encounter Results Automated Differential (08/01/2013 5:32 PM CDT) P athologist Signature Neutro % 56.1 34.0 - POWERCHART 71.1 Lymphocytes % 34.6 19.3 - POWERCHART 51.7 HX [place] % 8.0 4.7 - 12.5 POWERCHART HX Eos % 1.1 0.7 - 5.8 POWERCHART HX Baso % 0.2 0.1 - 1.2 POWERCHART Absolute 3.64 1.70 - POWERCHART Neutrophils 7.00 109L Lymphocytes 2.24 0.90 - POWERCHART 2.90 X109L Monocytes 0.52 0.30 - POWERCHART 0.90 X109L Eosinophils 0.07 0.05 - POWERCHART 0.50 X109L Absolute 0.01 0.00 - POWERCHART Basophil 0.30 X109L Specimen Anatomical Collection Method Collection Time Receive d Time (Source) Location / / Volume Laterality Blood 08/01/2013 5:32 PM 4 5:32 CDT PM CDT Ninfa Andrew M.D. LAB BLOOD ADD-ON Performing Organization Address City/State/ZIP Code Phon e Number POWERCHART CBC with Differential (08/01/2013 5:32 PM CDT) athologist Signature Leukocytes 6.5 3.4 - 10.5 POWERCHART X109L Erythrocytes 4.40 3.90 - POWERCHART 5.03 [id number] Hemoglobin 13.8 12.0 - POWERCHART 15.5 GDL Hematocrit 41.3 34.9 - POWERCHART 44.5 MCV 93.9 82.0 - POWERCHART 98.0 FL Platelet Count 218 150 - 450 POWERCHART X109L HX RDW 13.5 11.9 - POWERCHART 15.5 HXDifferential? Auto POWERCHART Specimen (Source) Anatomical Collection Method Collection Time Re ceived Time Location / / Volume Laterality Blood 08/01/2013 5:32 PM CDT Ninfa Andrew M.D. LAB BLOOD ADD-ON Performing Organization Address City/State/ZIP Code Phon e Number POWERCHART Thyroid-Stimulating Hormone-Sensitive (s-TSH) (08/01/2013 5:32 PM CDT) athologist Signature TSH, Sensitive 2.7 0.3 - 5.0 POWERCHART MIUL Comment: Test Performed by: [place] [address] Rn Camp: Larry machuca III, M.D. Specimen (Source) Anatomical Collection Method Collection Time Re ceived Time Location / / Volume Laterality Blood 08/01/2013 5:32 PM CDT Ninfa Andrew M.D. LAB BLOOD ADD-ON Performing Organization Address City/State/ZIP Code Phon e Number POWERCHART documented in this encounter Visit Diagnoses Not on filedocumented in this encounter
--- OUTSIDE RECORDS SUMMARY | 2022-01-15 13:34 | XMS_ITS | Encounter Summary ---
:1980 Author Organization [facility] Address [address] [place] [address] Care Team Providers Name Role Phone Unavailable Primary Care Provider Unavailable Encounter Details Date Type Department Care Team Description 11/24/2011 Hospital Encounter HX [facility] Michael Monae M .D. Social History Tobacco Use Types Packs/Day Years Used Date Smoking Tobacco: Never Assessed Sex Assigned at Date Recorded Not on file documented as of this encounter Last Filed Vital Signs Vital Sign Reading Time Taken Comments Blood Pressure 108/72 11/24/2011 4:20 PM CDT Pulse 78 11/24/2011 4:20 PM CDT Temperature - - Respiratory Rate 18 11/24/2011 4:20 PM CDT Oxygen Saturation - - Inhaled Oxygen Concentration - - Weight 119 kg (262 lb 12.6 oz) 11/24/2011 4:20 PM CDT Height - - Body Mass Index - - documented in this encounter Progress Notes Michael Monae M.D. - 11/24/2011 4:12 PM CDT [id number] CHIEF COMPLAINT/REASON FOR VISIT visit HISTORY OF PRESENT ILLNESS This patient is a 31-year-old G3, P 2-1-0-3 female who is status post section and tubal ligation on 11/13/2011. Patient presents for visit. She is doing well. She delivered by section and bilateral tubal ligation a viable female with weight of 3,340 grams who was inbreech presentation and failed version attempt. Patient presents for visit. She is doing well. She is still having some pain and discomfort from her surgery and would like a refill of her Tylenol No. 3 pills. She is still using this occasionally. She otherwise has good pain control. She is performing activities of daily living. She denies nausea, vomiting, no change in bowel habits. No diff iculty urinating. No constipation. She reports decreased lochia which has not resolved. No vaginal itching or irritation. No headaches, vision changes. No shortness of breath or chest pain. No fevers or chills. She is nursing without difficulty. CURRENT MEDICATIONS 1. vitamins 2. Ambien p.r.n. 3. Ibuprofen PRN 4. Tylenol No. 3 new prescription given today p.r.n. 5. Flonase p.r.n. 6. Omeprazole 7. Colace ALLERGIES No known drug allergies. PAST MEDICAL/SURGICAL HISTORY Insomnia, constipation, GERD. Past Surgical History 1. Tonsils, adenoids as a child 2. Hemorrhoidectomy 2002 3. section, tubal ligation 11/13/2011 Past Obstetrical History 1. Vaginal delivery 09/16/2000 2. Vaginal delivery 11/15/2005 3. section and tubal ligation 11/13/2011. ADULT PREVENTIVE SERVICES Provided by Dr. Mitchell at [facility]. These records are not available for my review. SOCIAL HISTORY Patient is . She quit smoking 2007. No alcohol, drug use. No history of STD or PID. No history of cervical dysplasia. No history of abuse. VITAL SIGNS WEIGHT 119.2 kg TEMPERATURE 37.0 PULSE 78 RESPIRATION 18 BLOOD PRESSURE 108/72 PHYSICAL EXAMINATION GENERAL: Well-developed, well-nourished obese female in no apparent distress. Alert and oriented times 3. LUNGS: Clear to auscultation bilaterally with good inspiratory effort. HEART: Regular rate and rhythm without murmur. ABDOMEN: Soft, obese, nontender, nondistended. Positive bowel sounds. Fundus 5 cm below umbilicus, firm, nontender. Incision clean, dry, intact without erythema. Steri-Strips are in place. No signs of infection. Normoactive bowel sounds. No hepatosplenomegaly. EXTREMITIES: No clubbing, cyanosis or edema. Nontender bilaterally GENITAL EXAM: Deferred. PATHOLOGY 11/13/2011 Pathology for sterilization is pending. IMPRESSION/REPORT/PLAN 1. Normal postop visit status post primary section and bilateral tubal ligation 11/13/2011 2. Nursing 3. Obesity Plan 1. I gave the patient a refill of Tylenol No. 3 with codeine pain prescription. I discussed use of narcotics for postoperative pain management. I discussed use of NSAID products as well. 2. Routine postop precautions, recommendations and instructions are reviewed with the patient 3. Routine postop activity recommendations and restrictions are reviewed with patient 4. Nursing encouraged 5. Routine depression precautions reviewed with the patient 6. I would like the patient to follow up with Dr. Mitchell her primary provider in 3-4 weeks for visit including pelvic exam and Pap smear as well as adult preventive services and immunizations as needed 7. I will be happy to see the patient on a p.r.n. basis. 8. I will contact patient with results of the pathology report after I obtain this from the hospital. Michael Monae M.D./maury cc: Zaki Mitchell MD e-[facility] [employer] [id number] [place] [address] Electronically Signed By: MICHAEL MONAE MD On: 11/26/2011 08:13 AM Source: [facility] MHSDOLBEYNONRADSYS Document Id: [id number] documented in this encounter Miscellaneous Notes Miscellaneous - Michael Monae M.D. - 11/24/2011 4:41 PM CDT Ambulatory Depart Summary [address] [id number] Visit Information Name: SHILO HUMPHREYS Visit Date: 11/24/2011 16:41:46 Attending Provider: MICHAEL MONAE MD Primary Care [...] medications. Medication/Strength Dose Route Frequency Indications/Special Instructions/Comments acetaminophen-codeine (Tylenol with Codeine #3 oral tablet) 1 to 2 tablets Oral every 4 hours as needed for Pain (not to exceed 4000 mg acetaminophen per day) / No more than 4,000mg acetaminophen/24hrs zolpidem (Ambien 10 mg oral tablet) 10 [...] your provider for clarification. Additional Information: Source: [facility] POWERCHART Document Id: [id number] Miscellaneous - Michael Monae M.D. - 11/24/2011 4:41 PM CDT [place] [address] Visit Information Name: SHILO HUMPHREYS Current Date: 11/24/2011 16:41:46 Physicians Attending Provider: MICHAEL MONAE MD Primary Care Provider: ZAKI MITCHELL MD Your Medications Here is a list of your medications. It is important to take your medications as directed. Use a pillbox or chart to help remind you to take your medications. Please let your doctor or nurse know if you have problems taking your medications. Medication/Strength Dose Route Frequency Indications/Special Instructions/Comments acetaminophen-codeine (Tylenol with Codeine #3 oral tablet) 1 to 2 tablets Oral every 4 hours as needed for Pain (not to exceed 4000 mg acetaminophen per day) / No more than 4,000mg acetaminophen/24hrs zolpidem (Ambien 10 mg oral tablet) 10 [...] Status Onset Comments state, other Active 11/07/2011 11/13/11 s/p section on 11/13/2011 Breech presentation of fetus without mention of version, antepartum Active 11/07/2011 11/13/11 s/p section on 11/13/2011 Morbid Obesity Active 11/07/2011 GERD [Gastroesophageal reflux disease] Active 11/07/2011 Encounter for Sterilization Active 11/10/2011 11/13/11 s/p bilateral tubal segment excision for sterilization on 11/13/2011 Your Upcoming Appointments Date Time Location Reason Provider No Appointments found Your Goals/Additional instructions: Source: [facility] POWERCHART Document Id: [id number] Miscellaneous - Elisabeth Peña LBrettP.N. - 11/24/2011 4:20 PM CDT Adult Half Backer Intake/History Adult Half Backer Intake/History Entered On: 11/24/2011 16:22 CDT Performed On: 11/24/2011 16:20 CDT by ELISABETH PEÑA Intake Chief Complaint : post op Temperature Core : 37.0C(Converted to: 98.6DegF) Peripheral Pulse Rate : 78/min Respiratory Rate : 18/min Heart Rhythm : Regular Systolic Blood Pressure : 108mmHg Diastolic Blood Pressure : 72mmHg NIBP Mean : 84mmHg BP Location : Left upper extremity Blood Pressure Cuff Size : Regular Actual Weight : 119.2kg(Converted to: 262lb 13oz) Weight Source : Standing scale Dosing Weight Clinic : 119.20kg ELISABETH PEÑA - 11/24/2011 16:20 CDT Subjective Pain Symptoms : Yes ELISABETH PEÑA - 11/24/2011 16:20 CDT Pain Pain Assessment Grid Pain 1 Location : Abdomen Laterality : Bilateral ELISABETH PEÑA - 11/24/2011 16:20 CDT Dependent Habits Tobacco Use/Currently Using : No Exposure to Tobacco Smoke : Other: none Smoking Status : Never smoker ELISABETH PEÑA - 11/24/2011 16:20 CDT Allergy Allergies (Active) NKA Estimated Onset Date: Unspecified ; Created By: ELISABETH PEÑA; Reaction Status: Active ; Category: Drug ; Substance: NKA ; Type: Allergy ; Updated By: ELISABETH PEÑA; Reviewed Date: 11/24/201116:20 CDT [facility] Document Id: [id number] documented in this encounter Plan of Treatment Not on filedocumented as of this encounter Visit Diagnoses Not on filedocumented in this encounter
--- OUTSIDE RECORDS SUMMARY | 2022-01-15 13:34 | XMS_ITS | Encounter Summary ---
:1980 Author Organization [employer] Address [address], [place] [address] Care Team Providers Name Role Phone Raheel Silvestre MD Primary Care Provider Reason for Visit Reason Comments Nutrition Counseling Encounter Details Date Type Department Care Team Description 04/19/2015 Office Visit [facility] Tapia, Morbid obe sity with BMI of 40.0-44.9, adult ([facility]) (Primary Dx); Surgery & Weight RDN, LD [facility] low back pain [facility] [address] [place] [address] [address] [place] [id number] [phone] Social History Tobacco Use Types Packs/Day Years [...] - - Weight 125.4 kg (276 lb 8 oz) 04/19/2015 2:15 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 Since last RD visit: Eating a solid breakfast ~ 50% of time (otherwise using protein drink). Not drinking with meals. Taking a protein shake to work for snack. Drinking more water. Patient is an appropriate candidate for desired bariatric surgery based on current dietary habits. Exercise: Patient is engaging in physical activity: moving every day. Has back disc issues- doing more steps DIAGNOSIS: Nutrition Diagnosis: Overweight/Obesity (NC 3.3). related to: excess energy intake as evidenced by: BMI 44. INTERVENTION: Healthy Diet and Meal planning. Mindful eating. Fluid. Patient verbalizes understanding of the education. MONITORING AND EVALUATION: Patient appears moderately motivated to change Patient identified goals: 1. adequate fluids between meals. 2. increase steps for activity. 3. mindful eating- try milk or protein shake if needed for hunger between meals Next visit will be bariatric education visit. Time: 30 minutes. OR SOFTWARE MANAGER documented in this encounter Plan of Treatment Not on filedocumented as of this encounter Visit Diagnoses Diagnosis Morbid obesity with BMI of 40.0-44.9, ad ult (HRC) - Primary Chronic low back pain Lumbago documented in this encounter Care Teams Communication And Outreach Manager Relationship Specialty Start Date End Date Raheel Silvestre MD PCP - General 10/17/[address] [place] [address] documented as of this encounter
--- OUTSIDE RECORDS SUMMARY | 2022-01-15 13:34 | XMS_ITS | Encounter Summary ---
:1980 Author Organization [facility] Address [address] [address] Care Team Providers Name Role Phone Raheel Silvestre MD Primary Care Provider Reason for Visit Reason Comments ERRONEOUS ENTRY Encounter Details Date Type Department Care Team Description 06/27/2015 Office Visit [place] [facility] ENTRY & Weight Center RN (Primary Dx) [address] [facility] [address] [place], [place] [id number] Social History Tobacco Use Types Packs/Day Years Used Date Smoking Tobacco: Never Assessed Sex Assigned at Date Recorded Not on file documented as of this encounter Progress Notes [facility] RN - 06/27/2015 12:52 PM CDT This encounter was created in error - please disregard. 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
--- OUTSIDE RECORDS SUMMARY | 2022-01-15 13:34 | XMS_ITS | Encounter Summary ---
:1980 Author Organization [facility] Address [address] [place] [address] Care Team Providers Name Role Phone Unavailable Primary Care Provider Unavailable Encounter Details Date Type Department Care Team Description 07/12/2020 [facility] Department of Family Medicine, [address] [phone] Social History Tobacco Use Types Packs/Day Years Used Date Smoking Tobacco: Former Sex Assigned at Date Recorded Not on file documented as of this encounter Plan of Treatment Not on filedocumented as of this encounter Visit Diagnoses Not on filedocumented in this encounter
--- OUTSIDE RECORDS SUMMARY | 2022-01-15 13:34 | XMS_ITS | Encounter Summary ---
:1980 Author Organization [employer] Address [address], [place] [address] Care Team Providers Name Role Phone Raheel Silvestre MD Primary Care Provider Encounter Details Date Type Department Care Team Description 12/05/2014 Lab Visit [facility] [address] Person al history of other endocrine, metabolic, and immunity disorders; Outpatient Laborator y Morbid obesity due to excess calories [address] [place], [place] [address] Social History Tobacco Use Types Packs/Day Years Used Date Smoking Tobacco: Never Assessed Sex Assigned at Date Recorded Not on file documented as of this encounter Plan of Treatment Not on filedocumented as of this encounter Procedures Procedure Name Priority Date/Time Associated Comments Diagnosis IRON BINDING CAPACITY Routine 12/05/2014 8:36 AM Personal hist ory of Results for this (INCL IRON) CDT other endocrine, procedure a re in metabolic, and the results immunity disorders section. ZINC, SERUM Routine 12/05/2014 8:36 AM Morbid obesity due Res ults for this CDT to excess calories procedure are in (HRC) the results section. VITAMIN B6 (8HR FAST Routine 12/05/2014 8:36 AM Morbid obesity due Results for this RECOMMENDED) CDT to excess calories procedure are in (HRC) the results section. VITAMIN B1, BLOOD Routine 12/05/2014 8:36 AM Morbid obesity du e Results for this CDT to excess calories procedure are in (HRC) the results section. HELICOBACTER PYLORI Routine 12/05/2014 8:36 AM Personal histor y of Results for this IGG CDT other endocrine, procedure a re in metabolic, and the results immunity disorders section. LIPID PANEL AND Routine 12/05/2014 8:36 AM Personal history of Results for this DIRECT LDL(IF NEEDED) CDT other endocrine, pr ocedure are in metabolic, and the results immunity disorders section. VITAMIN D 25-HYDROXY, Routine 12/05/2014 8:36 AM Morbid obesit y due Results for this TOTAL CDT to excess calories procedure are in (HRC) the results section. INTACT PTH Routine 12/05/2014 8:36 AM Morbid obesity due Res ults for this CDT to excess calories procedure are in (HRC) the results section. LIVER PANEL(HEPATIC Routine 12/05/2014 8:36 AM Morbid obesity due Results for this FUNCTION PANEL) CDT to excess calories proced ure are in (HRC) the results section. COMPLETE BLOOD Routine 12/05/2014 8:36 AM Personal history of Results for this COUNT-NO DIFF CDT other endocrine, procedure are in metabolic, and the results immunity disorders section. FERRITIN Routine 12/05/2014 8:36 AM Personal history of Re sults for this CDT other endocrine, procedure a re in metabolic, and the results immunity disorders section. HGB A1C Routine 12/05/2014 8:36 AM Personal history of Re sults for this CDT other endocrine, procedure a re in metabolic, and the results immunity disorders section. FOLATE ONLY (4HR FAST Routine 12/05/2014 8:36 AM Morbid obesit y due Results for this RECOMMENDED) CDT to excess calories procedure are in (HRC) the results section. VITAMIN B12 ONLY Routine 12/05/2014 8:36 AM Morbid obesity due Results for this CDT to excess calories procedure are in (HRC) the results section. documented in this encounter Results Liver Panel(Hepatic Function Panel) (12/05/2014 8:36 AM CDT) [facility] gist Method Time Signature Alk Phos 77 25 - 135 HP CONVERSION U/L Bilirubin Total 0.6 0.2 - 1.2 HP CONVERSION mg/dL Bilirubin, Direct <0.2 0.0 - 0.4 HP CONVERSIO N mg/dL Protein Total, Serum 6.8 5.7 - 8.3 HP CONVER YAYA g/dL Albumin 4.1 3.4 - 5.0 HP CONVERSION g/dL Aspartate 16 0 - 45 HP CONVERSION Aminotransferase U/L Alanine 19 4 - 55 HP CONVERSION Aminotransferase U/L Specimen Anatomical Collection Method Collection Time Receive d Time (Source) Location / / Volume Laterality 12/05/2014 8:36 AM 5 8:49 CDT AM CDT Narrative HP CONVERSION - 12/05/2014 10:02 AM CDT Performed at [facility], [address] [place] [address] Lanie Crumal [facility] LAB_1 Performing Organization Address [facility] Phon e Number HP CONVERSION ZINC, SERUM (12/05/2014 8:36 AM CDT) athologist Signature Zinc, Serum 68 60 - 120 HP CONVERSION ug/dL Comment: INTERPRETIVE INFORMATION: Zinc, Serum or Plasma Circulating zinc concentrations are depe ndent on albumin status and are depressed with malnutriti on. Zinc may also be lowered with infection, inflammation, stress, oral contraceptives, and . Zinc may be elevated with zinc supplementation or fasting. Elevate d zinc concentrations may interfere with copper absorption. Test developed and characteristics deter mined by [employer]. See Compliance Statement B : [email or web address] Specimen Anatomical Collection Method Collection Time Receive d Time (Source) Location / / Volume Laterality 12/05/2014 8:36 AM 5 8:49 CDT AM CDT Narrative HP CONVERSION - 12/06/2014 11:20 AM CDT Performed at [employer] [address] [place] [address] LAB_1 Performing Organization Address [facility] Phon e Number HP CONVERSION (ABNORMAL) Vitamin D 25-Hydroxy, Total (12/05/2014 8:36 AM CDT) athologist Signature Vitamin D 25 19 (L) 20 - 80 HP CONVERSION Oh ng/mL Comment: Deficiency = <20 Adequate ??= 20-29 Preferred = 30-50 Uncertain safety = 51-80 High = >80 Specimen Anatomical Collection Method Collection Time Receive d Time (Source) Location / / Volume Laterality 12/05/2014 8:36 AM 5 8:50 CDT AM CDT Narrative HP CONVERSION - 12/05/2014 12:08 PM CDT Performed at [facility], [address] [place] [address] Lanie SMITH LAB_1 Performing Organization Address [facility] Phon e Number HP CONVERSION VITAMIN B6 (12/05/2014 8:36 AM CDT) athologist Signature Vitamin B6 22.5 20.0 - HP CONVERSION 125.0 nmol/L Comment: INTERPRETIVE INFORMATION: Vitamin B6 (Py ridoxal 5-Phosphate) Pyridoxal 5'-phosphate measured in a spe cimen collected following an 8-hour or overnight fast ac curately indicates vitamin B6 nutritional status. Non-fasti ng specimen concentration reflects recent vitamin in take. Test developed and characteristics deter mined by [employer]. See Compliance Statement B : [employer] Specimen Anatomical Collection Method Collection Time Receive d Time (Source) Location / / Volume Laterality 12/05/2014 8:36 AM 5 8:50 CDT AM CDT Narrative HP CONVERSION - 12/07/2014 1:20 AM CDT Performed at [facility] [address] [address] LAB_1 Performing Organization Address [facility] Phon e Number HP CONVERSION VITAMIN B1 (12/05/2014 8:36 AM CDT) athologist Signature Vitamin B1 85 70 - 180 HP CONVERSION nmol/L Comment: INTERPRETIVE INFORMATION: Vitamin B1, Wh ole Blood This assay measures the concentration of thiamine diphosphate (TDP), the primary active fo rm of vitamin B1. Approximately 90 percent of vitamin B1 p resent in whole blood is TDP. Thiamine and thiamine mono phosphate, which comprise the remaining 10 percent, are n ot measured. Test developed and characteristics deter mined by [employer]. See Compliance Statement B : [employer] Specimen Anatomical Collection Method Collection Time Receive d Time (Source) Location / / Volume Laterality 12/05/2014 8:36 AM 5 8:50 CDT AM CDT Narrative HP CONVERSION - 12/07/2014 3:48 AM CDT Performed at [employer] [address] [place] [address] LAB_1 Performing Organization Address City/[facility] Phon e Number HP CONVERSION Intact PTH (12/05/2014 8:36 AM CDT) athologist Signature PTH 95 10 - 100 HP CONVERSION pg/mL Specimen Anatomical Collection Method Collection Time Receive d Time (Source) Location / / Volume Laterality 12/05/2014 8:36 AM 5 8:49 CDT AM CDT Narrative HP CONVERSION - 12/05/2014 9:44 [place] [address] Lanie SMITH LAB_1 Performing Organization Address City/[facility] Phon e Number HP CONVERSION IRON BINDING CAPACITY (INCL IRON) (12/05/2014 8:36 AM CDT) athologist Signature Iron, Serum 138 37 - 170 HP CONVERSION ug/dL Iron Binding 348 250 - 450 HP CONVERSION Capacity ug/dL Iron Saturation 40 20 - 55 % HP CONVERSION Specimen Anatomical Collection Method Collection Time Receive d Time (Source) Location / / Volume Laterality 12/05/2014 8:36 AM 5 8:49 CDT AM CDT Narrative HP CONVERSION - 12/05/2014 10:02 [place] [address] Lanie SMITH LAB_1 Performing Organization Address City/[facility] Phon e Number HP CONVERSION Hgb A1c (12/05/2014 8:36 AM CDT) athologist Signature HGB A1C 5.6 4.0 - 5.6 % HP CONVERSION Specimen Anatomical Collection Method Collection Time Receive d Time (Source) Location / / Volume Laterality 12/05/2014 8:36 AM 5 8:50 CDT AM CDT Narrative HP CONVERSION - 12/05/2014 10:15 [place] [address] Lanie SMITH LAB_1 Performing Organization Address City/[facility] Phon e Number HP CONVERSION HELICOBACTER PYLORI IGG (12/05/2014 8:36 AM CDT) [facility] gist Method Time Signature Helicobacter Negative Negative HP CONVERSION pylori IgG Comment: A positive Heliobacter result is common in older age groups. The test should only be used for patient s with symptoms suggestive of gastrointestinal disease a nd findings should be correlated with clinical signs and sy mptoms. Specimen Anatomical Collection Method Collection Time Receive d Time (Source) Location / / Volume Laterality 12/05/2014 8:36 AM 5 8:50 CDT AM CDT Narrative HP CONVERSION - 12/08/2014 3:38 PM CDT Performed at [facility], [address] [place] [address] [address] LAB_1 Performing Organization Address [facility] Phon e Number HP CONVERSION Folate Only (4Hr Fast Recommended) (12/05/2014 8:36 AM CDT) athologist Signature Serum Folate 21.5 >5.9 ng/mL HP CONVERSION Specimen Anatomical Collection Method Collection Time Receive d Time (Source) Location / / Volume Laterality 12/05/2014 8:36 AM 5 8:49 CDT AM CDT Narrative HP CONVERSION - 12/05/2014 11:27 AM CDT Performed at [facility], [address] [place] [address] LAB_1 Performing Organization Address [facility] Phon e Number HP CONVERSION B12 Only (12/05/2014 8:36 AM CDT) athologist Signature Vitamin B12 394 211 - 911 HP CONVERSION pg/dL Specimen Anatomical Collection Method Collection Time Receive d Time (Source) Location / / Volume Laterality 12/05/2014 8:36 AM 5 8:49 CDT AM CDT Narrative HP CONVERSION - 12/05/2014 11:27 AM CDT Performed at [facility], [address] [place] [address] [address] LAB_1 Performing Organization Address [facility] Phon e Number HP CONVERSION Ferritin (12/05/2014 8:36 AM CDT) P athologist Signature Ferritin Serum 10 10 - 291 HP CONVERSION ng/mL Specimen Anatomical Collection Method Collection Time Receive d Time (Source) Location / / Volume Laterality 12/05/2014 8:36 AM 5 8:49 CDT AM CDT Narrative HP CONVERSION - 12/05/2014 11:27 AM CDT Performed at [facility], [facility] [place] [address] LAB_1 Performing Organization Address City/[facility] Phon e Number HP CONVERSION (ABNORMAL) Lipid Panel and Direct LDL(If Needed) (12/05/2014 8:36 AM CDT) [facility] gist Method Time Signature Cholesterol 220 (H) 0 - 200 HP CONVERSION mg/dL Triglycerides 273 (H) 0 - 149 HP CONVERSION mg/dL HDL Cholesterol 53 >39 mg/dL HP CONVERSION Cholesterol/HDL 4.2 HP CONVERSION Ratio Screen LDL Calculated 112 19 - 130 HP CONVERSION mg/dL Length Of Fast Unknown HP CONVERSION Specimen Anatomical Collection Method Collection Time Receive d Time (Source) Location / / Volume Laterality 12/05/2014 8:36 AM 5 8:49 CDT AM CDT Narrative HP CONVERSION - 12/05/2014 10:02 AM CDT Performed at [facility], [address] [place] [address] LAB_1 Performing Organization Address [facility] Phon e Number HP CONVERSION Complete Blood Count-No Diff (12/05/2014 8:36 AM CDT) P athologist Signature White Blood Cell 4.6 3.8 - 11.0 HP CONVERSIO N Count k/cmm Red Blood Cell 4.30 3.70 - HP CONVERSION Count 5.20 m/cmm Hemoglobin 13.6 11.8 - HP CONVERSION 15.5 g/dL Hematocrit 40.7 35.0 - HP CONVERSION 46.0 % Mean Corpuscular 94.7 80.0 - HP CONVERSION Volume 100.0 fL RDW 13.3 11.0 - HP CONVERSION 15.0 % Platelet Count 208 140 - 450 HP CONVERSION k/cmm Specimen Anatomical Collection Method Collection Time Receive d Time (Source) Location / / Volume Laterality 12/05/2014 8:36 AM 5 8:49 CDT AM CDT Narrative HP CONVERSION - 12/05/2014 8:52 [place] [address] Lanie Viv SMITH LAB_1 Performing Organization Address City/State/ZIP Code Phon e Number HP CONVERSION documented in this encounter Visit Diagnoses Diagnosis Personal history of other endocrine, met abolic, and immunity disorders Morbid obesity due to excess calories (H RC) documented in this encounter Care Teams Food Service Attendant Relationship Specialty Start Date End Date Raheel Silvestre MD PCP - General 10/17/14[address] [place] [address] documented as of this encounter
--- OUTSIDE RECORDS SUMMARY | 2022-01-15 13:34 | XMS_ITS | Clinical Summary ---
:1980 Author Organization [employer] [facility] [place] [address] Care Team Providers Name Role Phone Raheel Fox MD Primary Care Provider [phone] Christine Abad MD Unavailable Camilo Hall MD Unavailable Allergies No known active allergies Medications Medication Sig Dispensed Refills Start Date End Date Status pediatric multivitamin Take 1 tablet 0 10/05/2016 Active no.76 (FLINTSTONES by mouth. COMPLETE) chewIndications: Routine general medical examination at a health care facility ferrous sulfate 325 mg Take 1 tablet 0 10/05/2016 Active delayed release by mouth once tabletIndications: daily. Routine general medical examination at a health care facility cyanocobalamin (VITAMIN Take 1 tablet 0 10/05/2016 Active B-12) 1,000 mcg by mouth once tabletIndications: daily. Routine general medical examination at a health care facility calcium carbonate Take 1 tablet 0 10/05/2016 Active (CALCIUM 600) 600 mg by mouth 3 calcium (1,500 mg) times daily tabletIndications: with meals. Routine general medical examination at a health care facility folic acid 1 mg Take 1 tablet 90 tablet 2 06/18/2017 Active tabletIndications: by mouth once Retinal vasculitis, daily. unspecified laterality omeprazole (PRILOSEC) 20 Take 1 capsule 90 capsule 3 8 Active mg Delayed-Release by mouth once capsuleIndications: daily before a Gastroesophageal reflux meal. disease without esophagitis zolpidem (AMBIEN) 10 mg Take 1 tablet 90 tablet 1 11/24/2017 Active tabletIndications: by mouth at Insomnia, unspecified bedtime if type needed. 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 Supervision of other normal 08/05/2011 Overview: [facility] Planned Discussed PPTL on 05/30/11 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 01/30/2009 05/11/2011 Immunizations Name Administration Dates Next Due AMB Influenza, IIV3 (Age >=3 02/02/2013, 01/26/2010, 009 years)(Flu Clinic Only) Influenza A (H1N1), Inactivated 02/23/2009 Influenza A (H1N1), Inactivated (Age 1102/23/2009 >=3 Years) Influenza, IIV3 (Age >=3 years) 02/02/2013, 12/25/2011, 04/07, 01/26/2010, 01/20/2009 Influenza, IIV4 01/28/2018, 12/04/2016, 02/07/2016 MMR 08/20/1991 Tdap 01/03/2011 Family History Medical History Relation Name Comments Good Health Daughter 2 Alcohol/Drug Father Arthritis Father Hips Diabetes Maternal Aunt 1 Cancer-breast Maternal Aunt 2 Heart Disease Maternal Grandfather WA Good Health Mother Other Mother Atrial Fibrillat ion Other Sister 2 ovarian cyst Other Sister 3 ovarian cyst Good Health Son 2 Relation Name Status Comments Daughter 1 Alive Daughter 2 Father Alive Maternal Aunt 1 Maternal Aunt 2 Maternal Grandfather Maternal Grandmother Alive Mother Alive Paternal Grandfather Alive Paternal Grandmother Alive Sister 1 Alive X3 Sister 2 Sister 3 Son 1 Alive Son 2 Social History Tobacco Use Types Packs/Day Years Used Date Former Smoker Cigarettes 1 Quit: 01/05/20 08 Smokeless Tobacco: Never Used Alcohol Use Standard Drinks/Week Comments Yes 0 (1 standard drink = 0.6 oz pure alcoho l) Social Sex Assigned at Date Recorded Not on file Obstetrics History Para Term AB IAB SAB Ectopic Multiple Living Live Births 3 3 2 1 3 3 Date Outcome GA Total Labor/2nd/3rd Weight Sex Delivery Anes PTL Aniyah A 1 A5 Name Clin Labor 09/16 Term 37w 3.35 kg M VAGINAL Natalia 8 9 Brant hu /2000 0d (7 lb 6 VACU ng a y re oz) Delivery Location: [facility] 11/15/2005 36w0d 2.98 kg (6 F Vag IV Meds Living 9 9 Abygale Fox lb 9 oz) Delivery Location: [facility] 11/13/2011 Term 39w0d 3.35 kg (7 lb 6 F Li vijayg Claire Fox oz) Delivery Location: [facility] Comments: breech Last Filed Vital Signs Vital Sign Reading Time Taken Comments Blood Pressure 96/64 04/29/2018 10:00 AM [employer]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 Pulse 68 04/29/2018 10:00 AM [employer]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 Temperature 37.1 ??C (98.7 ??F) 05/23/2015 1:29 PM C[employer]OA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 Respiratory Rate 12 04/29/2018 10:00 AM C[employer]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 Oxygen Saturation 98% 05/23/2015 1:29 PM COC[employer]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 Inhaled Oxygen Concentration - - Weight 80.3 kg (177 lb) 04/29/2018 10:00 AM C[employer]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 Height 167 cm (5' 5.75) 11/24/2017 1:17 PM CDT Body Mass Index 28.79 11/24/2017 1:17 PM CDT Plan of Treatment Health Maintenance Due Date Last Done Comments COVID-19 vaccine series (#1) 01/12/1980 Hepatitis C screening for age 0407/12/1997 18-79 Depression screening for age 12+ 10/03/2017 10/03/2016 BMI (ht and wt on same day) for 11/24/2018 11/24/2017, 10/06, age 18+ 06/18/2017, Additional history exists Pap test for age 21-65 10/04/2019 10/03/2016, 12/25/2011, 01/03/2011, Additional history exists Tetanus booster 01/03/2021 01/03/2011 Influenza for age 9-49 12/05/2021 01/28/2018, 12/04/2016, 02/07/2016, Additional history exists Tdap Completed 01/03/2011 Results Not on filefrom Last 3 Months Insurance Payer Benefit Plan / Subscriber ID Effective Dates Phone Addre ss Type Group BLUE [employer]OSS BL[employer] OF [id number] 2020-Presen [address] [place] [address] Care Teams Compounding Technician Relationship Specialty Start Date End Date Raheel oFx MD PCP - General 07/15/051999 [place] [address] Christine Abad MD Rheumatology Rheumatology 12/12/14 [address] [facility] [address] [place] [address] Camilo Hall MD Surgery - Ophthalmology 04/29/18 [address] [place], [place] [id number]
== END 2021-12-04 13:31 | disposition home or self-care (01) ==
LOC: SLEEP 01-15 13:31
PROVIDERS: PCP Family Medicine; Visit Provider Family Medicine
DX: R40.0 Somnolence (principal); R53.83 Other fatigue
CPT/HCPCS: 95806

== ENCOUNTER 2022-07-31 08:24 | Outpatient (CLI) | payer BC, SELFPAY | END 2022-07-31 08:25 | disposition home or self-care (01) | PROVIDERS: PCP Family Medicine; Visit Provider Family Medicine | DX: M25.50 Pain in unspecified joint (principal); E55.9 Vitamin D deficiency, unspecified; E03.9 Hypothyroidism, unspecified; Z13.6 Encounter for screening for cardiovascular disorders | CPT/HCPCS: 80053; 80061; 82306; 84443; 85025; 85651; 86039; 86431 ==

== ENCOUNTER 2023-05-27 14:46 | Outpatient (CLI) | payer BC, SELFPAY ==
--- OUTSIDE RECORDS SUMMARY | 2023-05-27 14:48 | XMS_ITS | Clinical Summary ---
Author Name Unknown Organization [facility] Address [address] [place] [address] Care Team Providers Care Overhead Crane Inspector Name Role Phone Raheel Silvestre MD Primary Care Provider Source Comments You are receiving this document as you are listed as the primary care provider,follow-up provider, or the patient has been referred to you for consultation.This is in compliance with the Medicare and[facility] EHR Incentive Program,which states Providers who transition their patient to another setting of careor provider of care or refers their patient to another provider of care shouldprovide summary care record for each transition of care or referral. [facility] Allergies No known active allergies Medications Medication Sig Dispensed Refills Start Date End Date Status zolpidem (AMBIEN) 10 MG tablet Take 10 mg by mouth at bedtime as needed for Sleep. 11/28/2014 Active acetaminophen (TYLENOL) 325 MG tablet Take 325-650 mg by mouth every 4 hours as needed for Pain. Maximum 4000mg per 24 hours 11/28/2014 Active pediatric multiple vitamin-iron (FRUITY CHEWS/IRON) chew tablet Take 1 tablet by mouth daily (every 24 hours). Indications: MINERAL DEFICIENCY PREVENTION, VITAMIN DEFICIENCY PREVENTION 09/07/2015 Active cholecalciferol (VITAMIND3) 2000 UNITS tablet Take 1 tablet by mouth daily (every 24 hours). Indications: PREVENTION OF VITAMIN D DEFICIENCY 09/17/2015 Active cyanocobalamin (VITAMIN B12) [address] 1,000 mcg under the tongue once a week. Indications: PREVENTION OF VITAMIN B12 DEFICIENCY 09/17/2015 Active Calcium Citrate (CALCITRATE) 950 MG tablet Take 1 tablet by mouth 2 times daily. Indications: HYPOCALCEMIA PREVENTION 11/02/2015 Active FLUoxetine (PROZAC) 40 MG capsule Take 40 mg by mouth daily. 12/12/2020 Active omeprazole (PRILOSEC) 20 MG capsule Take 20 mg by mouth daily before breakfast. 1-2 times daily 01/08/2021 Active Methotrexate 12.5 MG/0.5ML SOSY Active predniSONE (DELTASONE) 20 MG tablet 01/29/2021 Active Active Problems Problem Noted Date Diagnosed Date Bariatric surgery status 08/17/2015 Overview: Laparoscopic vertical sleeve gastrectomy Morbid obesity with BMI of 40.0-44.9, adult 04/2014 Chronic low back pain 12/05/2014 Overview: Disc disease L4-5 Encounters Date Type Department Care Team Description 03/12/2023 9:30 AM EXPORT SPECIALIST E-Visit [facility] [address] [place] [address] Kathryn Mccormick, PAAldairC Chief Comp: QUESTIONS, GENERAL from Last 3 Months Family History Medical History Relation Name Comments [...] Years Used Date Smoking Tobacco: Former Cigarettes Q uit: 01/05/2008 Smokeless Tobacco: Never Comments:quit january app 7 years ago. Alcohol Use Standard Drinks/Week Comments Yes 0 (1 standard drink = 0.6 oz pur e alcohol) 1-2 per week Sex and Gender Information Value Date Recorded Sex Assigned at Not on file Gender Identity Not on file Sexual Orientation Not on file Last Filed Vital Signs Vital Sign Reading Time Taken Comments Blood Pressure 114/67 02/08/2021 9:50 AM CDT Pulse 73 02/08/2021 9:50 AM CDT Temperature 36.4 ??C (97.5 ??F) 08/19/2015 7:40 AM CD T Respiratory Rate 18 08/19/2015 7:40 AM CDT Oxygen Saturation 99% 08/19/2015 7:40 AM CDT Inhaled Oxygen Concentration - - Weight 101.4 kg (223 lb 8 oz) 02/08/2021 9:44 AM CDT Height 166.4 cm (5' 5.5) 02/08/2021 9:44 AM CDT Body Mass Index 36.63 02/08/2021 9:44 AM CDT Plan of Treatment Health Maintenance Due Date Last Done Comments Cervical Cancer Screening Due 1980 Hep C Screening (Preventive Services) 1980 HIV Screening (Preventive Services) 1995 Adult Preventive Visit 07/12/1997 HepB (1) 07/12/1998 DTaP/Tdap/Td (2 - Tdap) 01/03/2021 01/03/2011 COVID-19 Vaccine ( season) 2022 03/06/2021, 07/12/2020 Influenza (#1) 2022 01/23/2022, 01/05, 12/26/2019, Additional history exists Zoster/Shingles (1 of 2) 07/12/2029 HPV Vaccine Aged Out No longer eligi ble based on patient's age to complete this topic HepA Aged Out No longer eligi ble based on patient's age to complete this topic Hib Aged Out No longer eligi ble based on patient's age to complete this topic IPV (Polio) Aged Out No longer eligi ble based on patient's age to complete this topic MCV4 Aged Out No longer eligi ble based on patient's age to complete this topic Pneumococcal Aged Out No longer eligi ble based on patient's age to complete this topic Advance Directives Latest Code Status on File Code Status Date Activated Date Inactivated Comments Full Code 08/17/2015 11:01 AM 08/19/2015 4:29 PM Care Teams Overhead Crane Inspector Relationship Specialty Start Date End Date Raheel Silvestre MD [address] [place] [id number] PCP - General 10/17/14
--- OUTSIDE RECORDS SUMMARY | 2023-05-27 14:48 | XMS_ITS | Clinical Summary ---
Author Name Unknown Organization [facility] Address [place], [place] [address] Care Team Providers Care Sap Plant Maintenance Consultant Name Role Phone Raheel Silvestre MD Primary Care Provider + Christine Abad MD Unavailable [phone] Camilo Hall MD Unavailable [phone] Allergies No known active allergies Medications Medication Sig Dispensed Refills Start Date End Date Status pediatric multivitamin no.76 ([employer]INT[employer]ONES COMPLETE) chewIndications:Rou rony general medical examination at a health care facility Take 1 tablet by mouth. 0 7 Active ferrous sulfate 325 mg delayed release tabletIndications:R outine general medical examination at a health care facility Take 1 tablet by mouth once daily. 0 7 Active cyanocobalamin (VITAMIN B-12) 1,000 mcg tabletIndications:R outine general medical examination at a health care facility Take 1 tablet by mouth once daily. 0 7 Active calcium carbonate (CALCIUM 600) 600 mg calcium (1,500 mg) tabletIndications:R outine general medical examination at a health care facility Take 1 tablet by mouth 3 times daily with meals. 0 7 Active zolpidem (AMBIEN) 10 mg tabletIndications:I nsomnia, unspecified type Take 1 tablet by mouth at bedtime if needed. 90 tablet 1 8 Active methotrexate (RHEUMATREX) 2.5 mg tabletIndications:R etinal vasculitis, unspecified laterality TAKE 5 TABLETS BY MOUTH 1 TIME WEEKLY 60 tablet 0 9 Active folic acid 1 mg tabletIndications:R etinal vasculitis, unspecified laterality TAKE 1 TABLET BY MOUTH EVERY DAY 90 tablet 0 9 Active FLUoxetine (PROZAC) 40 mg capsule Take 40 mg by mouth once daily. 0 3 Active Rasuvo, PF, 25 mg/0.5 mL atIn 0 3 Active pantoprazole (PROTONIX) 40 mg delayed-release tablet Take 40 mg by mouth once daily. 0 3 Active ondansetron (ZOFRAN ODT) 8 mg disintegrating tabletIndications:I njury of head, initial encounter Place 1 Tablet (8 mg) on the tongue every 8 hours if needed for Nausea/Vomiting . 12 Tablet 0 3 Active methylPREDNISolone (Medrol, Tung,) 4 mg tabletIndications:P ain Take by mouth as instructed per packaging. 21 Tablet 0 3 Active ondansetron (ZOFRAN ODT) 4 mg disintegrating tabletIndications:V omiting, unspecified vomiting type, unspecified whether nausea present Place 2 Tablets (8 mg) on the tongue every 8 hours if needed for Nausea/Vomiting . 12 Tablet 0 4 Active dicyclomine (BENTYL) 10 mg capsuleIndications: Abdominal cramping Take 1 Capsule (10 mg) by mouth every 6 hours if needed (Abdominal cramping). 12 Capsule 0 4 Active doxycycline (VIBRAMYCIN) 100 mg capsuleIndications: Vomiting, unspecified vomiting type, unspecified whether nausea present Take 1 Capsule (100 mg) by mouth two times daily. 10 Capsule 0 4 Active doxycycline (VIBRAMYCIN) 100 mg capsuleIndications: Vomiting, unspecified vomiting type, unspecified whether nausea present Take 1 Capsule (100 mg) by mouth two times daily for 5 days. 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 01/30/2009 05/11/2011 Encounters Date Type Department Care Team Description 05/08/2023 4:06 PM LEAD FORMER - 05/08/2023 6:15 PM LEAD FORMER Emergency [facility] [address] [facility] [place] [address] Nancy Becerra MD Abdominal cramping (Primary Dx); Vomiting, unspecified vomiting type, unspecified whether nausea present; Pneumonia due to infectious organism, unspecified laterality, unspecified part of lung Discharge Disposition: Home Self Care 05/08/2023 Travel from Last 3 Months Immunizations Name Administration Dates Next Due AMB Influenza, IIV3 (Age >=3 years)(Flu Clinic Only) 02/02/2013,01/26/2010,01/20/2009 COVID-19 vaccine ([employer] 30mcg/0.3mL) PF, MDV 03/06/2021 Influenza A (H1N1), Inactivated 02/23/2009 Influenza A (H1N1), Inactiva laura (Age >=3 Years) 02/23/2009 Influenza, IIV3 (Age >=3 years) 02/03/20 13,12/25/2011,05/02/2011,2009,01/20/2009 Influenza, IIV4 01/23/2022,,12/26/2019,2018,01/28/2018,12/04/2016,02/07/2016,1 04/25/2008 MMR 08/20/1991 Tdap 01/03/2011 Family History Medical History Relation Name Comments Good Health Daughter 2 Alcohol/Drug Father Arthritis Father Hips Diabetes Maternal Aunt 1 Cancer-breast Maternal Aunt 2 Heart Disease Maternal Grandfather MT Good Health Mother Other Mother Atrial Fibrilla tion Other Sister 2 ovarian cyst Other Sister [...] Cigarettes Q uit: 01/05/2008 Smokeless Tobacco: Never Alcohol Use Standard Drinks/Week Comments Yes 0 (1 standard drink = 0.6 oz pur e alcohol) Social Social Connections Answer Date Recorded Frequency of Communication with Friends and Fami ly Not on file 08/15/2022 Sex and Gender Information Value Date Recorded Sex Assigned at Not on file Gender Identity Not on file Sexual Orientation Not on file Obstetrics History Para Term AB IAB SAB Ectopic Multiple Livin g Live Births 3 3 2 1 3 3 Date Outcome GA Total Labor Labor/2nd/3rd Weight Sex Delivery Anes PTL Aniyah A1 A5 Name Cl in 09/16 Term 37w 0d 3.35 kg (7 lb 6 oz) M VAGINAL VACU Natalia ng 8 9 Joshu a [place] Delivery Location:[facility] 11/15 36w 0d 2.98 kg (6 lb 9 oz) F Vag IV Meds Natalia ng 9 9 Abyga le Mc[place] Delivery Location:[facility] 11/12 Term 39w 0d 3.35 kg (7 lb 6 oz) F Natalia ng Alyso n Mcint yre Delivery Location:[facility] Comments:breech Last Filed Vital Signs Vital Sign Reading Time Taken Comments Blood Pressure 153/99 05/08/2023 4:15 PM LEAD FORMER Pulse 70 05/08/2023 4:15 PM LEAD FORMER Temperature 36.7 ??C (98 ??F) 05/08/2023 4:15 PM LEAD FORMER Respiratory Rate 16 05/08/2023 4:15 PM LEAD FORMER Oxygen Saturation 96% 05/08/2023 4:15 PM LEAD FORMER Inhaled Oxygen Concentration - - Weight 111.7 kg (246 lb 4.8 oz) 05/08/2023 4:15 PM LEAD FORMER Height 165.1 cm (5' 5) 05/08/2023 4:15 PM LEAD FORMER Body Mass Index 40.99 05/08/2023 4:15 PM LEAD FORMER Plan of Treatment Health Maintenance Due Date Last Done Comments Hepatitis C screening for age 18-79 07/12/1997 Depression screening for age 12+ 10/03/2017 10/03/2016 BMI (ht and wt on same day) for age 18+ 11/24/2018 11/24/2017, 11/03/2017, 06/18/2017, Additional history exists Pap test for age 21-65 10/04/2019 7, 12/25/2011, 01/03/2011, Additional history exists Tetanus booster 01/03/2021 01/03/2011 COVID-19 vaccine series (3 - 2022-24 season) 2022 03/06/2021, 07/12/2020 Influenza for age 9-49 12/05/2022 2, 01/29/2021, 12/26/2019, Additional history exists Tdap Completed 01/03/2011 HIV for age 15-65 Completed 05/02/2011 Pneumococcal series for age 6-64 Aged Out No longer eligible based on patient's age to complete this topic Procedures Procedure Name Priority Date/Time Associated Diagnosis Comments CT ABDOMEN PELVIS W STAT 05/08/2023 4 :53 PM LEAD FORMER CBC WITH AUTO DIFFERENTIAL STAT 05/08/2023 4:37 PM LEAD FORMER LIPASE STAT 05/08/2023 4:37 PM LEAD FORMER HEPATIC FUNCTION PANEL STAT 05/08/2023 4:37 PM LEAD FORMER BASIC METABOLIC PANEL STAT 05/08/2023 4:37 PM LEAD FORMER CBC WITH AUTO DIFFERENTIAL STAT 05/08/2023 4:37 PM LEAD FORMER URINALYSIS MICROSCOPIC STAT 05/08/2023 4:34 PM LEAD FORMER URINE STAT 05/08/2023 4:34 PM LEAD FORMER UA W/ SEDIMENT EXAM REFLEXED PER CRITERIA STAT 05/08/2023 4:34 PM LEAD FORMER from Last 3 Months Results * CT ABD/PELVIS W IV CONTRAST (05/08/2023 4:53 PM LEAD FORMER) Anatomical Region Laterality Modality Abdomen, Pelvis, AORTA, LIVER, SPLEEN Computed Tomography 05/08/2023 5:35 PM LEAD FORMER Impressions 05/08/2023 5:35 PM LEAD FORMER Tree-in-bud opacities within the right lung base, correlate for inflammation/infection. No acute intra-abdominal findings. Please note that all CT scans at this facility use dose modulation, iterative reconstruction, and/or weight-based dosing when appropriate to reduce radiation dose to as low as reasonably achievable. Dictated by Alex Monae MD @ 05/08/2023 5:35:22 PM (Electronically Signed) Narrative 05/08/2023 5:35 PM LEAD FORMER For Patients: ??As a result of the Cures Act, medical imaging exams and procedure reports are released immediately into your electronic medical record. ??You may view this report before your referring provider. ??If you have questions, please contact your health care provider. INDICATION: Nonlocalized abdominal. TECHNIQUE: CT abdomen and pelvis acquired with 100 cc Omnipaque 300 IV contrast. COMPARISON: None. FINDINGS: Lower chest: Small to moderate-sized hiatal hernia is noted. There are a couple of sub 5 millimeter right lower lobe pulmonary nodules which are highly statistically benign and per Fleischner criteria if the patient is at increased risk for malignancy consider follow-up chest CT in 1 year. There are tree-in-bud opacities within the partially visualized right middle lobe and right lung base. Liver: Normal in size and attenuation. No suspicious masses. Gallbladder and bile ducts: No stones or inflammation. No biliary dilatation. Pancreas: No mass or inflammation. Spleen: Unremarkable. ?? Adrenal glands: No nodules. Kidneys: Kidneys are symmetric in size. No suspicious masses, stones, or hydronephrosis. GI tract: Postsurgical changes within the stomach, likely partial gastrectomy. There is no bowel obstruction. Submucosal fat is present within the transverse colon common normal variant versus sequela of inflammatory bowel disease. No definite bowel wall thickening or inflammatory stranding about the hollow visceral. The appendix is normal. Vasculature: Abdominal aorta is normal in caliber. Mesenteric arteries are patent. Lymph nodes: No lymphadenopathy. Peritoneum/Abdominal Wall: Unremarkable. No sign of mass or infiltration. No free air or significant free fluid. Pelvis: Unremarkable. Bones: Unremarkable for age. Procedure Note Alex Monae MD - 05/08/2023 For Patients: As a result of the Cures Act, medical imagingexams and procedure reports are released immediately into your electronicmedical record. You may view this report before your referring provider.If you have questions, please contact your health care provider. INDICATION: Nonlocalized abdominal. TECHNIQUE: CT abdomen and pelvis acquired with 100 cc Omnipaque 300 IV contrast. COMPARISON: None. FINDINGS: Lower chest: Small to moderate-sized hiatal hernia is noted. There are acouple of sub 5 millimeter right lower lobe pulmonary nodules which arehighly statistically benign and per Fleischner criteria if the patient isat increased risk for malignancy consider follow-up chest CT in 1 year.There are tree-in-bud opacities within the partially visualized rightmiddle lobe and right lung base. Liver: Normal in size and attenuation. No suspicious masses. Gallbladder and bile ducts: No stones or inflammation. No biliarydilatation. Pancreas: No mass or inflammation. Spleen: Unremarkable. Adrenal glands: No nodules. Kidneys: Kidneys are symmetric in size. No suspicious masses, stones, orhydronephrosis. GI tract: Postsurgical changes within the stomach, likely partialgastrectomy. There is no bowel obstruction. Submucosal fat is presentwithin the transverse colon common normal variant versus sequela ofinflammatory bowel disease. No definite bowel wall thickening orinflammatory stranding about the hollow visceral. The appendix isnormal. Vasculature: Abdominal aorta is normal in caliber. Mesenteric arteries arepatent. Lymph nodes: No lymphadenopathy. Peritoneum/Abdominal Wall: Unremarkable. No sign of mass or infiltration.No free air or significant free fluid. Pelvis: Unremarkable. Bones: Unremarkable for age. IMPRESSION: Tree-in-bud opacities within the right lung base, correlate forinflammation/infection. No acute intra-abdominal findings. Please note that all CT scans at this facility use dose modulation,iterative reconstruction, and/or weight-based dosing when appropriate toreduce radiation dose to as low as reasonably achievable. Dictated by Alex Monae MD @ 05/08/2023 5:35:22 PM (Electronically Signed) Nancy Becerra MD CT * CBC WITH AUTO DIFFERENTIAL (05/08/2023 4:37 PM LEAD FORMER) WHITE BLOOD COUNT 8.0 4.5 - 11.0 thou/cu mm 05/08/2023 4:45 PM [facility] RED BLOOD COUNT 4.13 4.00 - 5.20 mil/cu mm 05/08/2023 4:45 PM [facility] HEMOGLOBIN 13.4 12.0 - 16.0 g/dL 05/08/2023 4:45 PM [facility] HEMATOCRIT 40.3 33.0 - 51.0 % 05/08/2023 4:45 PM [facility] MCV 98 80 - 100 fL 05/08/2023 4:45 PM [facility] MCH 32.4 26.0 - 34.0 pg 05/08/2023 4:45 PM [facility] MCHC 33.3 32.0 - 36.0 g/dL 05/08/2023 4:45 PM [facility] RDW 13.2 11.5 - 15.5 % 05/08/2023 4:45 PM [facility] PLATELET COUNT 244 140 - 440 thou/cu mm 05/08/2023 4:45 PM [facility] MPV 9.1 6.5 - 11.0 fL 05/08/2023 4:45 PM [facility] % NEUT 62.5 % 05/08/2023 4:45 PM [facility] % LYMPH 28.8 % 05/08/2023 4:45 PM [facility] % MONO 7.3 % 05/08/2023 4:45 PM [facility] % EOS 1.3 % 05/08/2023 4:45 PM [facility] % BASO 0.1 % 05/08/2023 4:45 PM [facility] ABSOLUTE NEUTROPHILS 5.0 1.7 - 7.0 thou/cu mm 05/08/2023 4:45 PM [facility] ABSOLUTE LYMPHOCYTES 2.3 0.9 - 2.9 thou/cu mm 05/08/2023 4:45 PM [facility] ABSOLUTE MONOCYTES 0.6 <0.9 thou/cu mm 05/08/2023 4:45 PM [facility] ABSOLUTE EOSINOPHILS 0.1 <0.5 thou/cu mm 05/08/2023 4:45 PM [facility] ABSOLUTE BASOPHILS 0.0 <0.3 thou/cu mm 05/08/2023 4:45 PM [facility] Blood BLOOD SPECIMEN / Unknown Venipuncture / Unknown 05/08/2023 4:37 PM LEAD FORMER 05/08/2023 4:42 PM LEAD FORMER Nancy Becerra MD HEMATOLOGY Performing Organization Address [facility]/ZIP Co de Phone Number [facility] [address] [place] [address] * LIPASE (05/08/2023 4:37 PM LEAD FORMER) Pathologist [facility] LIPASE 33.7 13.0 - 60.0 IU/L 05/08/2023 5:05 PM [facility] Blood BLOOD SPECIMEN / Unknown Venipuncture / Unknown 05/08/2023 4:37 PM LEAD FORMER 05/08/2023 4:42 PM LEAD FORMER Nancy Becerra MD CHEMISTRY Performing Organization Address [facility] Co de Phone Number [facility] [address] [place] [address] * HEPATIC FUNCTION PANEL (05/08/2023 4:37 PM LEAD FORMER) ALBUMIN 4.2 4.0 - 4.9 g/dL 05/08/2023 5:05 PM [facility] PROTEIN,TOTAL 7.1 6.0 - 8.0 g/dL 05/08/2023 5:05 PM [facility] BILIRUBIN,TOTAL 0.2 0.0 - 1.2 mg/dL 05/08/2023 5:05 PM [facility] BILIRUBIN,DIRECT <0.2 0.0 - 0.3 mg/dL 05/08/2023 5:05 PM [facility] BILIRUBIN,INDIRE CT 05/08/2023 5:05 PM [facility] Comment:Unable to calculate, Direct Bili <0.2 ALK PHOSPHATASE 88 35 - 104 IU/L 05/08/2023 5:05 PM [facility] ALT (SGPT) 30 10 - 35 IU/L 05/08/2023 5:05 PM [facility] AST (SGOT) 28 10 - 35 IU/L 05/08/2023 5:05 PM [facility] Blood BLOOD SPECIMEN / Unknown Venipuncture / Unknown 05/08/2023 4:37 PM LEAD FORMER 05/08/2023 4:42 PM [facility] Nancy Becerra MD CHEMISTRY [facility] [address] [place] [address] * BASIC METABOLIC PANEL (05/08/2023 4:37 PM [facility]) SODIUM 140 136 - 145 mmol/L 05/08/2023 5:05 PM [facility] POTASSIUM 3.9 3.5 - 5.1 mmol/L 05/08/2023 5:05 PM [facility] CHLORIDE 105 98 - 107 mmol/L 05/08/2023 5:05 PM [facility] CO2,TOTAL 27 22 - 29 mmol/L 05/08/2023 5:05 PM [facility] ANION GAP 8 5 - 18 05/08/2023 5:05 PM [facility] GLUCOSE 92 70 - 99 mg/dL 05/08/2023 5:05 PM [facility] CALCIUM 9.3 8.6 - 10.0 mg/dL 05/08/2023 5:05 PM [facility] BUN 12 6 - 20 mg/dL 05/08/2023 5:05 PM [facility] CREATININE 0.80 0.50 - 0.90 mg/dL 05/08/2023 5:05 PM [facility] BUN/CREAT RATIO 15 10 - 20 5:05 PM [facility] eGFR >90 >90 mL/min/1.7 3m2 05/08/2023 5:05 PM [facility] Comment:As of 2021, eG FR is calculated by the CKD-EPI creatinine equation without race adjustment. ??eGFR can be influenced by muscle mass, exercise, and diet. ??The reported eGFR is an estimation only and is only applicable if the renal function is stable. Blood BLOOD SPECIMEN / Unknown Venipuncture / Unknown 05/08/2023 4:37 PM LEAD FORMER 05/08/2023 4:42 PM LEAD FORMER Nancy Becerra MD CHEMISTRY Performing Organization Address [facility] Co de Phone Number [facility] [address] [place] [address] * (ABNORMAL) URINALYSIS MICROSCOPIC (05/08/2023 4:34 PM LEAD FORMER) RBC None Seen 0-2, None Seen /HPF 05/08/2023 5:17 PM [facility] WBC 0-2 0-2, 3-5, None Seen /HPF 05/08/2023 5:17 PM [facility] BACTERIA Few None Seen, Rare, Few Bacteria/ HPF 05/08/2023 5:17 PM [facility] EPITHELIAL CELLS Many(A) None Seen, Few Epi/HPF 05/08/2023 5:17 PM [facility] Urine URINE SPECIMEN / Unknown Non-Blood / Unknown 05/08/2023 4:34 PM LEAD FORMER 05/08/2023 4:38 PM LEAD FORMER Nancy Becerra MD URINE Performing Organization Address [facility] Co de Phone Number [facility] [address] [place] [address] * (ABNORMAL) URINALYSIS W REFLEX MICROSCOPIC IF POSITIVE (05/08/2023 4:34 PM LEAD FORMER) COLOR Yellow Yellow Color 05/08/2023 4:57 PM [facility] CLARITY Clear Clear Clarity 05/08/2023 4:57 PM [facility] SPECIFIC GRAVITY,URINE 1.015 1.010, 1.015, 1.020, 1.025 05/08/2023 4:57 PM [facility] PH,URINE 8.0 6.0, 7.0, 8.0, 5.5, 6.5, 7.5, 8.5 05/08/2023 4:57 PM [facility] UROBILINOGEN, QUALITATIVE Normal Normal EU/dl 05/08/2023 4:57 PM [facility] PROTEIN, URINE Negative Negative mg/dL 05/08/2023 4:57 PM [facility] GLUCOSE, URINE Negative Negative mg/dL 05/08/2023 4:57 PM [facility] KETONES,URINE Negative Negative mg/dL 05/08/2023 4:57 PM [facility] BILIRUBIN,URI NE Negative Negative 05/08/2023 4:57 PM [facility] OCCULT BLOOD,URINE Negative Negative 05/08/2023 4:57 PM [facility] NITRITE Negative Negative 05/08/2023 4:57 PM [facility] LEUKOCYTE ESTERASE Trace(A) Negative 05/08/2023 4:57 PM [facility] Urine URINE SPECIMEN / Unknown Non-Blood / Unknown 05/08/2023 4:34 PM LEAD FORMER 05/08/2023 4:38 PM LEAD FORMER Nancy Becerar MD URINE Performing Organization Address [facility]/ZIP Co de Phone Number [facility] [address] [place] [address] * URINE (05/08/2023 4:34 PM LEAD FORMER) ,URIN E Negative Negative 05/08/2023 4:53 PM LEAD FORMER [facility] Urine URINE SPECIMEN / Unknown Non-Blood / Unknown 05/08/2023 4:34 PM LEAD FORMER 05/08/2023 4:38 PM LEAD FORMER Nancy Becerra MD URINE [facility] [address] [place] [address] from Last 3 Months Care Teams Sap Plant Maintenance Consultant Relationship Specialty Start Date End Date Raheel Silvestre MD [address] [place] [address] PCP - General 07/15/05 Christine Abad MD [address] [facility] [place] [facility] [address] [place] [address] Rheumatology Rheumatology 12/12/14 Camilo Hall MD [address] [facility] [address] [place] [address] Surgery - Ophthalmology 04/29/18
--- OUTSIDE RECORDS SUMMARY | 2023-05-27 14:48 | XMS_ITS | Encounter Summary ---
Author Name Unknown Organization [facility] Address [address] [place] [address] Care Team Providers Care Vp Research Name Role Phone Raheel Silvestre MD Primary Care Provider Reason for Visit * Reason Comments QUESTIONS, GENERAL Entered automaticall y based on patient selection in [employer] Encounter Details Date Type Department Care Team (Late st Contact Info) Description 03/12/2023 9:30 AM ASSOCIATE PRODUCER E-Visit [facility] [address] [place], [place] [id number] Kathryn Mccormick, PAAldairC [address] [place], [place] [phone] Chief Comp: QUESTIONS, GENERAL Social History Tobacco Use Types Packs/Day Years [...] on file Sexual Orientation Not on file documented as of this encounter Plan of Treatment Not on file documented as of this encounter Visit Diagnoses Not on filedocumented in this encounter Care Teams Vp Research Relationship Specialty Start Date End Date Raheel Silvestre MD [address] [place] [address] PCP - General 10/17/14 documented as of this encounter
--- NOTE | 2023-05-27 15:00 | US_ITS ---
Patient: SHILO HUMPHREYS Facility:?[facility] Patient ID:?[id number] Site Patient ID:?[id number]. Site :?[id number] Study:?US-Pelvis TRANSABDOMINAL AND TRANSVAGINAL-05/27/2023 3:30:38 PM Ordering Physician:KARLA Final Report: INDICATION: ABNORMAL UTERINE AND VAGINAL BLEEDING COMPARISON: none TECHNIQUE: 2D stanley scale and color Doppler images were acquired of the pelvis using a transabdominal and transvaginal approach. FINDINGS: Sonographic images demonstrate a normal size and smooth outer contour of the uterus. Uterus measures 8.6 cm in length by 4.6 cm in AP diameter by 4.4 cm in transverse dimension. The myometrium has a heterogeneous echotexture. The endometrial lining appears heterogeneous with a small amount of fluid present and is difficult to measure. The right ovary measures 3.1 x 2.0 x 3.4 cm in size and the left ovary measures 2.6 x 1.3 x 1.8 cm. The ovaries demonstrate normal arterial and venous blood flow on color Doppler same small collapsing right ovarian cyst is present measuring 1.8 cm. Trace pelvic free fluid. IMPRESSION: The endometrium is somewhat indistinct, heterogeneous and mildly irregular. A small amount of fluid is present within the endometrial canal along with possible polyps. Measurement is difficult. Heterogeneous uterine echotexture without defined fibroid. Dictated by Raheel Schulte MD @ 05/28/2023 11:11:56 AM Signed by:?Raheel Schulte MD @05/28/2023 11:11:56 AM (Electronic Signature)
== END 2023-05-27 14:47 | disposition home or self-care (01) ==
LOC: US 14:47
PROVIDERS: PCP Family Medicine; Visit Provider Obstetrics & Gynecology
DX: N93.9 Abnormal uterine and vaginal bleeding, unspecified (principal)
CPT/HCPCS: 76830; 76856; 93976

== ENCOUNTER 2023-06-22 15:23 | Outpatient (CLI) | payer BC, SELFPAY | END 2023-06-22 15:24 | disposition home or self-care (01) | PROVIDERS: PCP Family Medicine; Visit Provider Family Medicine | DX: E55.9 Vitamin D deficiency, unspecified (principal); N92.0 Excessive and frequent menstruation with regular cycle; D50.0 Iron deficiency anemia secondary to blood loss (chronic); E03.9 Hypothyroidism, unspecified; Z13.228 Encounter for screening for other metabolic disorders | CPT/HCPCS: 80048; 82306; 84443; 85025 ==

== ENCOUNTER 2023-07-08 09:21 | Day surgery (SDC) | payer BC, SELFPAY ==
[2023-07-08] VITALS (21 sets, daily range): BP systolic 96–120; BP diastolic 60–83; PULSE 60–85; RESP 14–18; TEMP 36.1–36.7; O2SAT 90–98; BMI 41.6
[2023-07-08] MEDS: LACTATED RINGERS 1000 ML 1,000 ML 100 ML IV ×2 (09:20→12:33)
[2023-07-08] MEDS: SODIUM CHLORIDE 0.9 % (FLUSH) 10 ML SYRINGE IVF (10:09)
[2023-07-08 11:20] LABS: HCG Qualitative Serum* Negative (Negative)
[2023-07-08] MEDS: CEFAZOLIN 2 GM INJ IVP (11:21)
[2023-07-08] MEDS: BUPIVACAINE 0.25% 30 ML INJECTION (11:45)
--- NOTE | 2023-07-08 13:33 | SUR.OPER ---
Call placed at approximately 1330 to Frank, patients' , and update given.
[2023-07-08] MEDS: METHYLENE BLUE 1 % 10 ml 70 MG INJECTION (13:49)
--- NOTE | 2023-07-08 14:36 | W.PM.GYNPROC ---
Procedure Note Date of procedure: 07/08/23 Pre-op diagnosis: Abnormal uterine bleeding following endometrial ablation. Post-op diagnosis: same Procedure: Total laparoscopic hysterectomy, bilateral salpingectomies, diagnostic cystoscopy. Anesthesia: GETA Complications: None. Surgeon: Dayna Boone MD Director Clinical Applications: Vicki Escudero Estimated blood loss (mL): 125 Urine Output (mL): 300 Pathology: specimen obtained, sent to pathology (1. Bilateral fallopian tubes, 2. Uterus.) Condition: stable Disposition: PACU Findings: Central obesity. Normal size uterus. Evidence of prior tubal ligation. Otherwise normal-appearing fallopian tubes, ovaries, and uterus. Cystoscopy findings: Normal ureteral orifices bilaterally. Procedure Description: After obtaining informed consent, the patient was taken to the operating room where general anesthesia was obtained without difficulty. She was prepared and draped in the normal sterile fashion in the low dorsal lithotomy position. A Stevens catheter was inserted into the bladder and left to gravity drainage. A medium Graves open-sided speculum was introduced into the vagina. The cervix was visualized and grasped along its anterior lip with a single-tooth tenaculum. The uterus was gently sounded. Sound length was found to be 8.5 cm. The cervix was gently dilated to a #6 dilator. I then placed a large VCare uterine manipulator. The tenaculum and speculum were removed. The green VCare cup was digitally pressed up against the cervix and then cinched in place with the blue accessory cup. I then changed gloves and my attention was turned to the abdomen. The inferior aspect of the umbilical fold was injected with 0.25% Marcaine plain. A 12 mm vertical incision was then made within the umbilical fold using a scalpel. The subcutaneous adipose was dissected with a Marichuy clamp to the level of the fascia. The fascia was grasped with two Bree clamps and elevated. A So scissors was used to incise the fascia. A and 11 mm laparoscopic port was then placed through this defect with CO2 gas set to a 5 mmHg. The trocar was removed leaving the sleeve in place. The CO2 gas flow was turned to high flow to achieve pneumoperitoneum. The 10 mm laparoscope was used then to carefully inspect the abdomen and pelvis with findings noted above. Pictures were taken for documentation purposes. The patient was placed in Trendelenburg positioning. Two additional ports were placed in the right (11 mm) and left (5 mm) lower quadrants under direct visualization after first anesthetizing the skin and fascia with 0.25% Marcaine plain. Once the ports were in place, the VCare manipulator was used to elevate the uterus. The ureters were identified bilaterally along their courses in the pelvic sidewalls, though the left ureter was more difficult to visualize. The VCare cup was visualized and palpated with a blunt grasper. The left tube was elevated with a graspers. The Olympus Powerseal device was used to dissect the left tube from it's ovarian, broad ligament and cornual attachments before removing the tube through the right lower port. Excellent hemostasis was obtained. The right fallopian tube was then elevated with a graspers. The Olympus Powerseal device was used to dissect the right tube from it's ovarian, broad ligament and cornual attachments before removing the tube through the right lower port. Excellent hemostasis was obtained. The left round ligament was then sealed in a wide swath and transected with the Olympus Powerseal. Excellent hemostasis was obtained. The broad ligament was then opened using the Olympus Powerseal anteriorly and posteriorly along the cervix from the left within the confines of the VCare cup. Pressure was maintained on the uterine manipulator the whole time. The left uterine vessels were sealed in a wide swath and transected with the Olympus Powerseal, then the tissues over the VCare cup edge on the right side were thinned using the Olympus Powerseal to the midline posteriorly and anteriorly so that the fascial layer could be identified. The right round ligament was then sealed in a wide swath and transected with the Olympus Powerseal. Excellent hemostasis was obtained. The broad ligament was then opened using the Olympus Powerseal anteriorly and posteriorly along the cervix from the right within the confines of the VCare cup. Pressure was maintained on the uterine manipulator the whole time. The right uterine vessels were sealed in a wide swath and transected with the Olympus Powerseal, then the tissues over the VCare cup edge on the right side were thinned using the Olympus Powerseal to the midline posteriorly and anteriorly so that the fascial layer could be identified. Once an adequate dissection was made circumferentially, the Olympus Powerseal was removed and the [facility] electrocautery was used to incise the tissue circumferentially around the cervix within the groove of the VCare cup. Once the dissection was completed circumferentially, I was able to go below and remove the uterine manipulator and the uterus. The uterus was left in the vagina to aid in maintaining pneumoperitoneum. Initally, this was insufficient, the uterus was removed from the vagina and a glove containing for laparotomy sponges was placed into vagina as an alternative. I placed a fourth 5 mm laparoscopic port under direct visualization after first anesthetizing the skin with 0.25% Marcaine plain in the right lateral abdomen to aid with vaginal cuff closure. I attempted to reapproximate the vaginal cuff in a running fashion with a V-Loc suture, but was unable to obtain the proper angle for placement of the sutures with my instruments. Dr. Escudero and I then went below, removed the packing material/glove from the vagina, and placed a weighted speculum into the posterior vagina and a Amelia retractor in the anterior vagina. The posterior and anterior vaginal cuff edges were visualized and grasped with Allis clamps. The vaginal cuff angles were transfixed with figure of X sutures of 0 Vicryl. The vagina cuff was then closed with a series of interrupted sutures of 0 Vicryl. Preparations were then made for cystoscopy. Methylene blue was administered intravenously along with the IV fluids. The Stevens catheter was removed. The patient was flattened out. Cystoscopy was performed using sterile normal saline as distending medium. The bladder was carefully inspected and noted to be free of filling defects or suture material. Both ureteral orifices were easily visualized and blue tinged urine jets were noted from both sides. The cystoscope was then removed. A new Stevens catheter was sterilely placed into the bladder. I then changed gloves again and my attention was once again turned to the abdomen. The abdomen and pelvis were irrigated and inspected for hemostasis. There was active bleeding noted from a branch of the uterine vessels just to the right of midline. This was controlled with the [facility] and the Olympus Powerseal. Alexis was placed over the vaginal cuff and raw edges for extra hemostasis. The [employer] device was used to close the 11 mm right lower fascial defect. All instruments were then removed under direct visualization. Pneumoperitoneum was allowed to escape. The fascia was reapproximated at the umbilicus with 0 Vicryl. The skin at all 4 port sites was closed in a subcuticular fashion with 4-0 Vicryl. Surgical glue was then placed over the incisions. The patient tolerated the procedure well. Sponge, lap, needle, and instrument counts were reported as correct x2. The patient was taken to the recovery room awake and in stable condition. She did receive 2 g of IV Ancef preoperatively. Uterine weight was 89 g.
--- NOTE | 2023-07-08 14:48 | W.ANESCHARGE ---
Anesthesia Charges Start Date/Time Anesthesia Start Date: 07/08/23 Anesthesia Start Time: 11:11 Stop Date/Time Anesthesia Stop Date: 07/08/23 Anesthesia Stop Time: 14:47
[2023-07-08] MEDS: fentaNYL 100 MCG/2 ML inj 50 MCG IVP ×2 (15:08→15:22)
[2023-07-08] MEDS: OXYCODONE 5 MG TABLET PO ×3 (16:03→23:31)
[2023-07-08] MEDS: HYDROmorphone 0.5 mg/0.5 ml inj 0.2 MG IVP ×2 (17:01→19:29)
[2023-07-08] MEDS: KETOROLAC 30 MG/ML inj IVP ×2 (18:17→23:32)
--- NOTE | 2023-07-08 19:15 | PC.NURSE ---
End of SHift: The patient arrived to the floor @ 1530 this afternoon with her hisband. Pain was severe a
--- NOTE | 2023-07-08 19:15 | PC.NURSE ---
End of Shift: The patient arrived to the floor @ 1535 this afternoon with her . Reported severe pain at initial assessment. No orders foR IV pain medication.. OB was called PRN Dilaudid order was received and given. The patient reported some relief. 3 Lap sites CDI open to air. Ice pack to abdomen. Stevens patent and draining. HX of gastric sleeve... slow PO fluid and food intake. LR @ 100 in R hand. VSS on RA, lungs clear. The patient reports feeling bloated. Call light within reach. Lynne YATES BSN
[2023-07-08] MEDS: SIMETHICONE 80 MG TAB.CHEW 160 MG PO (19:29)
[2023-07-08] MEDS: ZOLPIDEM 5 MG TABLET PO (20:57)
[2023-07-08] MEDS: PANTOPRAZOLE SODIUM 40 MG INJ IVP (20:57)
[2023-07-09 03:00] VITALS: BP 102/66; PULSE 71; RESP 16; TEMP 36.4; O2SAT 91
[2023-07-09] MEDS: OXYCODONE 5 MG TABLET PO ×2 (03:30→08:29)
[2023-07-09] MEDS: OMEPRAZOLE 20 MG CAPSULE DR 40 MG PO (06:25)
[2023-07-09] MEDS: LEVOTHYROXINE 50 MCG TABLET PO (06:25)
[2023-07-09 06:26] LABS: Hemoglobin* 12.7 gm/dL (12.0-16.0)
[2023-07-09 06:47] LABS: Creatinine* 0.8 mg/dL (0.5-1.5); Est. Creatinine Clearance* 81.59; Estimated Glomerular Filt Rate 94 ml/min
[2023-07-09 07:00] VITALS: BP 121/71; PULSE 74; RESP 20; TEMP 36.3; O2SAT 94
[2023-07-09] MEDS: SIMETHICONE 80 MG TAB.CHEW 160 MG PO (08:30)
[2023-07-09] MEDS: FLUOXETINE HCL 20 MG CAPSULE 40 MG PO (08:30)
--- NOTE | 2023-07-09 08:39 | PM.GYNDS1 ---
DS: Providers Provider Time Seen by Provider: 08:39 Date Seen: 07/09/23 Primary care physician: Raheel Silvestre MD Attending Physician on discharge: Tahmina Miller MD DS: Diagnosis Discharge Diagnosis (1) Status post laparoscopic hysterectomy: Status: Acute (2) Abnormal uterine bleeding: Status: Acute IDENTITY MANAGEMENT DEVELOPER-Discharge Summary Hospital Course Hospital Course Narrative: Hospital Course: Jenny was admitted to the hospital on 07/08/2023 for a scheduled scheduled total laparoscopic hysterectomy and bilateral salpingectomy. Her surgery was uncomplicated. Her postoperative course was also uncomplicated. By postoperative day 1, she was tolerating a regular diet, ambulating without difficulty, passing flatus and pain was well controlled with oral pain medications. She would like to be discharged home today. Labs: Preoperative hemoglobin 14.0, postoperative hemoglobin 12.7. Objective: General: Alert and oriented x3. Pleasant, woman in no acute distress. Vital signs: See EMR. Heart: Regular rate and rhythm without gallop, rub or murmur. Chest: Clear to auscultation bilaterally. Abdomen: Soft, nontender, nondistended with normal bowel sounds throughout. No CVA or flank tenderness. Incision(s): Clean, dry and intact w/ sutures and skin adhesive. Pelvic: Minimal vaginal bleeding, remainder of pelvic exam deferred. Extremities: No pain, edema, cyanosis or clubbing. Assessment: 42-year-old postoperative day 1 from a TLH/bilateral salpingectomy/diagnostic cystoscopy doing well. Plan: 1. Discharge home today. 2. Activity restrictions reviewed with the patient. 3. Return to clinic to see Dr. Kinney for a postoperative visit in 2-3 weeks. Time Spent with Patient Time attestation: Total time spent providing and/or coordinating discharge services: IDENTITY MANAGEMENT DEVELOPER - Exam Physical Exam: Vital signs: Temp Pulse Resp BP Pulse Ox O2 Del Method 97.5 F L 71 16 102/66 91 Room Air 07/09/23 03:00 07/09/23 03:00 07/09/23 03:00 07/09/23 03:00 07/09/23 03:00 07/09/23 03:00 IDENTITY MANAGEMENT DEVELOPER - DS: Data Data Completed and Pending Labs on day of discharge: Labs from last 24 hours 07/09/23 07/08/23 06:09 10:26 Hgb 12.7 14.0 Creatinine 0.8 Estimated Creat Clear 81.59 Estimated GFR 94 HCG, Qual Negative Blood Type O Positive Antibody Screen NEGATIVE Procedures Procedures: Procedures Operation Date: 07/08/23 11:00 Actual Procedure Side Surgeon p Total Laparoscopic Hysterectomy, Bilateral Salpingectomy, Diagnostic Cystoscopy Not Applicable Dayna Kinney MD Discharge Plan Discharge Disposition: Home, Self-Care Discharging Surgeon: Tahmina Ballard Follow-Up Appointment: 2 weeks in [facility], Dr. Kinney Prescriptions: New docusate sodium [Stool Softener] 100 mg tablet 100 mg PO BID PRNQty: 100 0RF oxycodone 5 mg Tablet 5 mg PO 3XD PRN (Reason: Moderate Pain) Qty: 21 0RF Continued calcium carbonate 600 mg calcium (1,500 mg) tablet 600 mg PO QDAY multivitamin Tablet 1 tab PO QDAY zolpidem 5 mg tablet 5 mg PO QPM PRN cholecalciferol (vitamin D3) 1,250 mcg (50,000 unit) capsule 1,250 mcg PO QWEEK fluoxetine 40 mg capsule 40 mg PO QDAY Qty: 90 1RF pantoprazole 40 mg tablet,delayed release (DR/EC) 40 mg PO QDAY Qty: 90 0RF levothyroxine [Synthroid] 50 mcg tablet 50 mcg PO QDAY Qty: 90 1RF Activity Level: Other Discharge Diet: Regular Patient Instructions: Laparoscopic Hysterectomy (DC) Additional Instructions: Discharge instructions were reviewed with the patient including signs and symptoms of infection and medications to use for pain.? ? No lifting greater than 20 pounds for 6 weeks. Nothing per vagina for 6 weeks. Off work or school for 6 weeks. [address] while on narcotic pain medication: 1-2 weeks. Do not submerge incisions in water: 2 weeks. ? No restriction: Walking or going up/down stairs. Being a passenger in motorized vehicle. Showering Follow up with your surgeon in 2 weeks for incision check and 6 weeks for a postoperative visit or sooner as needed. Forms: Work/School Release Follow-up: Raheel Silvestre MD [Primary Care Provider] - Dayna Kinney MD [Staff Physician] - Discharge Orders: Discharge Order (Routine); Ordered 07/09/23 Ordered By: Tahmina Ballard Consulting provider completed their portion of the discharge: No Discharge Potential: Good
--- NOTE | 2023-07-09 10:59 | PC.NURSE ---
Patient had her monreal cath removed and then voided 100 cc. States she feels a little dehydrated enc to drink a lot of fluids. Also did bladder scan her before discharge to make sure she was not retaining. Instructions given all questions have been answered.
== END 2023-07-09 11:00 | disposition home or self-care (01) ==
LOC: OR 09:21 → MEDSURG 09:24 → OR 16:02 → MEDSURG 16:46
PROVIDERS: PCP Family Medicine; Visit Provider Obstetrics & Gynecology
PROC: 0UT94ZZ Resection of Uterus, Percutaneous Endoscopic Approach (ICD-10-PCS; CPT 58571; principal; 2023-07-08 10:45)
DX: N93.8 Other specified abnormal uterine and vaginal bleeding (principal)
CPT/HCPCS: 58571; 00840; 36415; 51798; 81025; 82565; 84703; 85018; 86850; 86900; 86901; 88309; A9270; C9113; J0330; J0665; J0690; J1100; J1170; J1885; J2250; J2405; J2704; J3010; J3475; J7120

== ENCOUNTER 2023-09-29 10:55 | Outpatient (CLI) | payer BC, SELFPAY ==
--- OUTSIDE RECORDS SUMMARY | 2023-10-01 15:50 | XMS_ITS | Clinical Summary ---
Author Organization [facility] Address [address] [place] [address] Care Team Providers Care International First Officer Name Role Phone Raheel Silvestre MD Primary Care Provider Source Comments You are receiving this document as you are listed as the primary care provider,follow-up provider, or the patient has been referred to you for consultation.This is in compliance with the Medicare and[facility] Cent[facility] EHR Incentive Program,which states Providers who transition their patient to another setting of careor provider of care or refers their patient to another provider of care shouldprovide summary care record for each transition of care or referral. [facility] Allergies No known active allergies Medications Medication [...] uit: 01/05/2008 Smokeless Tobacco: Never Comments:quit january 7 years ago. Alcohol Use Standard [...] (2 - Tdap) 01/03/2021 01/03/2011 COVID-19 Vaccine (3 - season) 2022 03/06/2021, 07/12/2020 Influenza (Season Ended) 2023 022, 01/29/2021, 12/26/2019, Additional history exists Zoster/Shingles (1 of [...] age to complete this topic Advance Directives * Full Code (Latest Code Status on File) Date Activated Date Inactivated Comments 08/17/2015 11:01 AM 08/19/2015 4:29 PM Care Teams International First Officer Relationship Specialty Start Date End Date Raheel Silvestre MD [address] [place] [id number] PCP - General 10/17/14
--- OUTSIDE RECORDS SUMMARY | 2023-10-01 15:50 | XMS_ITS | Referral Summary ---
Author Organization [facility] Address [address] [place] [address] Care Team Providers Care Painter Hand Name Role Phone Elsewhere, Pcp Primary Care Provider Unavailabl e Source Comments Patient records contain information from all sites at [facility]. For routine questions regarding patient records, call [phone] during business hours, M-F 8:00 AM - 5:00 PM Central Time. Record requests for emergency care only can be directed to [phone] at any time.[facility] Allergies No known active allergies Medications Medication Sig Dispensed Refills Start Date End Date Status omeprazole (PriLOSEC OTC) [address] tablet Take 1 capsule by mouth daily. 11/06/2011 Active methotrexate, PF, 12.5 mg/0.5 mL syringe Active folic acid 1 mg tablet Take 1 tablet by mouth daily. 08/17/2018 Active FLUoxetine (PROzac) 40 mg capsule Take 40 mg by mouth daily. 12/12/2020 Active ferrous sulfate 325 mg (65 mg iron) DR tablet Take 1 tablet by mouth daily. 10/05/2016 Active multivitamin tablet Take 1 tablet by mouth daily. Active cholecalciferol (Vitamin D3) 50 mcg (2,000 Unit) tablet Take 50 mcg by mouth daily. Active acetaminophen (TYLENOL) 500 mg tablet Take 500 mg by mouth every 6 (six) hours as needed for pain. Active Immunizations Name Administration Dates Next Due SARS-COV-2 (COVID-19) - RAMSES (J&J)(Discontinu ed) 07/12/2020 Social History Tobacco Use Types Packs/Day Years Used Date Smoking Tobacco: Former Smokeless Tobacco: Never Tobacco Cessation:Counseling Given: Not Answered Nutrition Answer Date Recorded Nutrition: EVOO Fat Source Unknown 07/06 Nutrition: Servings of Fruits/Vegetables per Day Not on file 07/06/2020 Dental Answer Date Recorded Dental: Regular Dentist Unknown 07/07/19 21 Sex and Gender Information Value Date Recorded Sex Assigned at Not on file Gender Identity Not on file Sexual Orientation Not on file Last Filed Vital Signs Vital Sign Reading Time Taken Comments Blood Pressure 110/74 06/02/2023 2:52 PM AUTOMATIC GRINDER 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
--- OUTSIDE RECORDS SUMMARY | 2023-10-01 15:50 | XMS_ITS ---
Author Organization [facility] Address [address] [place] [address] Care Team Providers Care Executive Chef Name Role Phone Unavailable Unavailable Unavailable Surgery Details Not on file Complications Check Surgery Details section. Procedure Estimated Blood Loss Check Surgery Details section. Procedure Findings Check Surgery Details section. Procedure Specimens Taken Check Surgery Details section.
--- OUTSIDE RECORDS SUMMARY | 2023-10-01 15:50 | XMS_ITS | Clinical Summary ---
Author Organization [facility] Address [address] [place] [address] Care Team Providers Care Clinical Associate Name Role Phone Elsewhere, Pcp Primary Care Provider Unavailabl e Source Comments Patient records contain information from all sites at [facility]. For routine questions regarding patient records, call [phone] during business hours, M-F 8:00 AM - 5:00 PM Central Time. Record requests for emergency care only can be directed to [phone] at any time.[facility] Allergies No known active allergies Medications Medication [...] Comments Blood Pressure 110/74 06/02/2023 2:52 PM SAFETY AND SKILL BASED PAY MANAGER Pulse 66 06/02/2023 2:52 PM SAFETY AND SKILL BASED PAY MANAGER Temperature 36.4 ??C (97.5 ??F) 06/02/2023 2:52 PM CS T Respiratory Rate 16 06/02/2023 2:52 PM SAFETY AND SKILL BASED PAY MANAGER Oxygen Saturation - - Inhaled Oxygen Concentration - - Weight 122 kg (269 lb 6.4 oz) 07/15/2014 4:08 PM CDT Height - - Body Mass Index - - Plan of Treatment Health Maintenance Due Date Last Done Comments HIV Screening 1979 Hepatitis C Screening 1979 Lipid (Cholesterol) Screening 1979 Mammogram 1979 Pneumococcal vaccine (0-64 years) (1 of 2 - PCV) 07/12/1985 Hepatitis B Vaccines (1 of 3 - 19+ 3-dose series) 07/12/1998 Zoster Vaccines (1 of 2) 07/12/1998 Cervical Cancer Screening 07/12/2014 2011 COVID-19 Vaccine (3 - 2022-24 season) 2022 03/06/2021, 07/12/2020 Influenza Vaccine (#1) 2023 2, 01/29/2021, 12/26/2019, Additional history exists Depression Screening (Annual PHQ-2) 04/06/2023 DTaP,Tdap,and Td Vaccines (3 - Td or Tdap) 06/21/2033 06/22/2023, 01/03/2011 HPV Vaccines Aged Out No longer eligi ble based on patient's age to complete this topic Additional Health Concerns Infection Onset Date Last Indicated Protective Environment 06/02/2023 4 Care Teams Clinical Associate Relationship Specialty Start Date End Date Elsewhere, Pcp PCP - General Internal Medicine 06/02/23
--- OUTSIDE RECORDS SUMMARY | 2023-10-01 15:50 | XMS_ITS | Clinical Summary ---
Author Organization [facility] Address [place], [place] [address] Care Team Providers Care Transplant Rn Name Role Phone Raheel Silvestre MD Primary Care Provider + Christine Abad MD Unavailable [phone] Camilo Hall MD Unavailable [phone] Allergies No known active allergies Medications Medication Sig Dispensed Refills Start Date End Date Status pediatric multivitamin no.76 (FLINTSTONES COMPLETE) chewIndications:Tracy tanner general medical examination at a health care facility Take 1 tablet by mouth. 0 10/05/2016 Active ferrous sulfate 325 mg delayed release tabletIndications:Genaro uribe general medical examination at a health care facility Take 1 tablet by mouth once daily. 0 10/05/2016 Active cyanocobalamin (VITAMIN B-12) 1,000 mcg tabletIndications:Genaro uribe general medical examination at a health care facility Take 1 tablet by mouth once daily. 0 10/05/2016 Active calcium carbonate (CALCIUM 600) 600 mg calcium (1,500 mg) tabletIndications:Genaro uribe general medical examination at a health care facility Take 1 tablet by mouth 3 times daily with meals. 0 10/05/2016 Active zolpidem (AMBIEN) 10 mg tabletIndications:Ins omnia, unspecified type Take 1 tablet by mouth at bedtime if needed. 90 tablet 1 11/24/2017 Active methotrexate (RHEUMATREX) 2.5 mg tabletIndications:Ret inal vasculitis, unspecified laterality TAKE 5 TABLETS BY MOUTH 1 TIME WEEKLY 60 tablet 07/23/2018 Active folic acid 1 mg tabletIndications:Ret inal vasculitis, unspecified laterality TAKE 1 TABLET BY MOUTH EVERY DAY 90 tablet 08/17/2018 Active FLUoxetine (PROZAC) 40 mg capsule Take 40 mg by mouth once daily. 05/28/2022 Active Rasuvo, PF, 25 mg/0.5 mL atIn 07/21/2022 Active pantoprazole (PROTONIX) 40 mg delayed-release tablet Take 40 mg by mouth once daily. 07/07/2022 Active ondansetron (ZOFRAN ODT) 8 mg disintegrating tabletIndications:Inj ury of head, initial encounter Place 1 Tablet (8 mg) on the tongue every 8 hours if needed for Nausea/Vomiting. 12 Tablet 09/09/2022 Active methylPREDNISolone (Medrol, Tung,) 4 mg tabletIndications:Mindy n Take by mouth as instructed per packaging. 21 Tablet 01/12/2023 Active ondansetron (ZOFRAN ODT) 4 mg disintegrating tabletIndications:Vom iting, unspecified vomiting type, unspecified whether nausea present Place 2 Tablets (8 mg) on the tongue every 8 hours if needed for Nausea/Vomiting. 12 Tablet 05/08/2023 Active dicyclomine (BENTYL) 10 mg capsuleIndications:Ab dominal cramping Take 1 Capsule (10 mg) by mouth every 6 hours if needed (Abdominal cramping). 12 Capsule 05/08/2023 Active doxycycline (VIBRAMYCIN) 100 mg capsuleIndications:Vo miting, unspecified vomiting type, unspecified whether nausea present Take 1 Capsule (100 mg) by mouth two times daily. 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 05/11/2011 Encounters Date Type Department Care Team Description 07/08/2023 Lab Requisition [facility] [phone] Dayna Kinney MD from Last 3 Months Immunizations Name Administration Dates Next Due AMB Influenza, IIV3 (Age >=3 years)(Flu Clinic Only) 02/02/2013,01/26/2010,01/20/2009 COVID-19 vaccine (abcdexpertsBio NTech 30mcg/0.3mL) PF, MDV 03/06/2021 Influenza A (H1N1), Inactivated 02/23/2009 Influenza A (H1N1), Inactiva laura (Age >=3 Years) 02/23/2009 Influenza, IIV3 (Age >=3 years) 02/03/20 13,12/25/2011,05/02/2011,2009,01/20/2009 Influenza, IIV4 01/23/2022,,12/26/2019,2018,01/28/2018,12/04/2016,02/07/2016,1 04/25/2008 MMR 08/20/1991 Tdap 01/03/2011 Family History Medical History Relation Name Comments Good Health Daughter 2 Alcohol/Drug Father Arthritis Father Hips Diabetes Maternal Aunt 1 Cancer-breast Maternal Aunt 2 Heart Disease Maternal Grandfather MA Good Health Mother Other Mother Atrial Fibrilla [...] Outcome GA Total Labor Labor/2nd/3rd Weight Sex Type Anes PTL Aniyah A1 A5 Name Clin 2000 Term 37w 0d 3.35 kg (7 lb 6 oz) M VAGINA L VACU Livin g 8 9 Javed Germán Delivery Location:[facility] 2005 36w 0d 2.98 kg (6 lb 9 oz) F Vag IV Meds Livin g 9 9 Abygal e Sandhyant Delivery Location:[facility] 2011 Term 39w 0d 3.35 kg (7 lb 6 oz) F C-Sect ion Livin g Claire Germán Delivery Location:[facility] Comments:breech Last Filed Vital Signs Vital Sign Reading Time Taken Comments Blood Pressure 153/99 05/08/2023 4:15 PM VOICE INSTRUCTOR Pulse 70 05/08/2023 4:15 PM VOICE INSTRUCTOR Temperature 36.7 ??C (98 ??F) 05/08/2023 4:15 PM VOICE INSTRUCTOR Respiratory Rate 16 05/08/2023 4:15 PM VOICE INSTRUCTOR Oxygen Saturation 96% 05/08/2023 4:15 PM VOICE INSTRUCTOR Inhaled Oxygen Concentration - - Weight 111.7 kg (246 lb 4.8 oz) 05/08/2023 4:15 PM VOICE INSTRUCTOR Height 165.1 cm (5' 5) 05/08/2023 4:15 PM VOICE INSTRUCTOR Body Mass Index 40.99 05/08/2023 4:15 PM VOICE INSTRUCTOR Plan of Treatment Health Maintenance Due Date Last Done Comments Hepatitis C screening for age 18-79 07/12/1997 Depression screening for age 12+ 10/03/2017 10/03/2016 BMI (ht and wt on same day) for age 18+ 11/24/2018 11/24/2017, 11/03/2017, 06/18/2017, Additional history exists Pap test for age 21-65 10/04/2019 7, 12/25/2011, 01/03/2011, Additional history exists Tetanus booster 01/03/2021 01/03/2011 COVID-19 vaccine series ( season) 2022 03/06/2021, 07/12/2020 Influenza for age 9-49 12/06/2023 2, 01/29/2021, 12/26/2019, Additional history exists Tdap Completed 01/03/2011 HIV for age 15-65 Completed 05/02/2011 Pneumococcal series for age 6-64 Aged Out No longer eligible based on patient's age to complete this topic Procedures Procedure Name Priority Date/Time Associated Diagnosis Comments PATH TISSUE EXAM Routine 07/08/2023 12:1 2 PM CDT LAB TRACKING EVENT Routine 07/08/2023 12 :00 PM CDT GENERAL MAINTENANCE MECHANIC THIN PREP PAP SCREEN IMAGED Routine 10/03/2016 4:15 PM CDT Screening for malignant neoplasm of cervix ANTI HIV 1/2 Routine 05/02/2011 5:21 PM VOICE INSTRUCTOR Supervision of other normal from Last 3 Months or Most Recently Relevant to Health Maintenance Results * PATH TISSUE EXAM (07/08/2023 12:12 PM CDT) Case Report Pathology Report ?Case: [id number] ? Authorizing Provider: ??Dayna Kinney MD ?Collected: ? 07/08/2023 1212 ? Ordering Location: ? [facility] ?Received: ?07/09/2023 0809 ? Pathologist: ? Vickie Galvan MD ? Specimens: ?? A) - Bilateral Fallopian Tubes ? B) - Uterus ? 2023 9:16 AM CDT [facility] Final Diagnosis A) BILATERAL FALLOPIAN TUBES, BILATERAL SALPINGECTOMY: 1. Bilateral fimbriated fallopian tubes with endometriosis and evidence of prior tubal ligation 2. Negative for malignancy B) UTERUS WITH CERVIX, TOTAL HYSTERECTOMY: 1. Cervix: Unremarkable 2. Endometrium: Inactive with changes of prior ablation 3. Myometrium: Leiomyomas, adenomyoma, and adenomyosis 4. Uterine serosa: Unremarkable 5. Uterine weight: 85 grams 6. Negative for malignancy 2023 9:16 AM CDT [facility] Clinical Information History of prior ablation with AUB and prior ligation 2023 9:16 AM CDT [facility] Gross Description A) Received fresh labeled with the patient's name and bilateral fallopian tubes, are 2 unoriented segments of fallopian tube with attached yellow adipose tissue. Fallopian tube 1: 5.1 cm in length by 0.7 cm in diameter overall with fimbria. ??1.9 cm from resection margin the fallopian tube appears to been previously ligated with a blind end and serosal scarring. ??The distal fallopian tube with fimbria have 2.6 x 2.3 x 1.1 cm yellow fatty adipose tissue. ??The cut surface has a dilated lumen with blood clot and flattened mucosa. Fallopian tube 2: 5.6 cm in length by 0.7 cm in diameter nonfimbriated self adherent segment of fallopian tube with attached yellow adipose tissue. ??Mid specimen the serosa has adhesions causing a band in the fallopian tube. ??The cut surface has a dilated lumen with blood clot and flattened mucosa. [employer] sections and entire fimbria are submitted. 1-2. ??Fallopian tube 1 and entire fimbria 3. ??Adipose tissue attached to fallopian tube 1 4. ??Fallopian tube 2 (no fimbria) Time and date in formalin: 1218 on 07/08/2023 TRS 07/09/2023 ?? B) Received fresh, labeled with the patient's name and uterus, is a 85 gram(uterus and cervix weight only), 8.5 (fundus-cervix) by 4.8 (cornu-cornu) by 4.0 (anterior-posteri or) cm simple hysterectomy specimen. The 4.1 cm long, 3.3 cm diameter cervix has a 0.3 cm cervical os. The ectocervical mucosa is smooth with a distinct squamocolumnar junction. The endocervical canal is patent. There is a 1.3 (cornu-cornu) by 3.3 (fundus-HELIO) cm endometrial cavity with surrounding myometrial scarring. ??The endometrium is 0.2 cm thick. No endometrial lesions are identified. ??There are 2, 0.4-0.7 x 0.7 x 0.7 cm pink rubbery well-circumscribe d intramural nodules. ??The nodules have a white rubbery center throughout with no evidence of hemorrhage, necrosis or calcifications. The myometrium is 1.5 cm thick. The serosa is smooth. [employer] sections are submitted: 1. Anterior cervix 2. Posterior cervix 3. Anterior uterine wall, full-thickness 4. Posterior uterine wall, full-thickness 5. ??Intramural nodules Time and date in formalin: 1353 on 07/08/2023 TRS 07/09/2023 2023 9:16 AM T [facility] Microscopic Description The final diagnosis is based on microscopic examination of appropriate sections of all specimens. 2023 9:16 AM T [facility] Additional Information Interpreted at [facility] - [address], [place] [address] 2023 9:16 AM T [facility] Other (Bilateral Fallopian Tubes) 07/08/2023 12:12 PM CDT 07/09/2023 8:09 AM CDT Specimen (specimen) SPECIMEN FROM UTERUS / Unknown 07/08/2023 1:14 PM CDT 07/09/2023 8:09 AM CDT Dayna Kinney MD PATHOLOGY/CYTOLOGY Performing Organization Address [facility] de Phone Number [facility] [address] [place] [address], * LAB TRACKING EVENT (07/08/2023 12:00 PM CDT) Other (Other) Client Collect / Unknown 07/08/2023 12:00 PM CDT 07/08/2023 9:24 PM CDT Dayna Kinney MD LAB BILL ONLY Performing Organization Address [facility] de Phone Number [facility] [address] [place] [address], * GENERAL MAINTENANCE MECHANIC THIN PREP PAP SCREEN IMAGED (10/03/2016 4:15 PM CDT) Case Report Gynecologic Cytology Report ? Case: [id number] ? Authorizing Provider: ??Raheel Silvestre MD ??Collected: ? 10/03/2016 1615 ? Ordering Location: ? [facility] ?Received: ?10/05/2016 1638 ? Clinic ? First Screen: ?Arturo Garcia ? Specimen: ?GENERAL MAINTENANCE MECHANIC ThinPrep Vial Screening, Cervical ? 10/14/2016 2:02 PM CDT [facility] INTERPRETATION/ RESULT NEGATIVE FOR INTRAEPITHELIAL LESION OR MALIGNANCY (NIL) (none) 10/14/2016 2:02 PM CDT [facility] IMEN ADEQUACY Satisfactory for evaluation Endocervical component present 10/14/2016 2:02 PM CDT [facility] HPV REQUEST HPV if ASCUS 10/14/2016 2:02 PM CDT [facility] Date of LMP 09/18/2016 10/14/2016 2:02 PM CDT [facility] Last Pap Date 201110/14/2016 2:02 PM CDT [facility] Last Pap Result NIL 7 2:02 PM CDT [facility] Abnormal Pap or Larsen Bx in last 5 years No 10/14/2016 2:02 PM CDT [facility] Menstrual Status Regular Periods 10/14/2016 2:02 PM CDT [facility] Larsen Bx Done Today No 10/14/2016 2:02 PM CDT [facility] Additional Information None given 10/14/2016 2:02 PM CDT [facility] Automated Review Successful 10/14/2016 2:02 PM CDT [facility] Comment:Specimen processed s uccessfully by automated psychology fellow device, [employer] System, [employer] Note The pap test is a screening technique, not a diagnostic procedure. ??It is used primarily to screen for squamous cancers and precursor lesions. ??Published studies have shown that it is subject to both false negative and false positive results. ??The pap test should not be used as the sole means to diagnose or exclude pre-malignant and malignant lesions. Interpreted at [facility] (Central Lab, [facility], [facility], [facility], [facility], [facility], [facility]) 10/14/2016 2:02 PM CDT [facility] Other (Cervical) 10/03/2016 4:15 PM CDT 10/05/2016 4:38 PM CDT Raheel Silvestre MD PATHOLOGY/CYTOLO GY [facility] [address] [place] [address], [place] * ANTI HIV 1/2 (05/02/2011 5:21 PM VOICE INSTRUCTOR) ANTI HIV 1/2 Non-reacti ve [facility] Blood specimen (specimen) BLOOD SPECIMEN / Unknown 05/02/2011 5:21 PM VOICE INSTRUCTOR 05/02/2011 5:13 PM VOICE INSTRUCTOR Raheel Silvestre MD SEND OUTS [facility] INTERNAL ZIP [phone] [address] from Last 3 Months or Most Recently Relevant to Health Maintenance Care Teams Transplant Rn Relationship Specialty Start Date End Date Raheel Silvestre MD [address] [place] [address] PCP - General 07/15/05 Christine Abad MD [address] [place] [address] Rheumatology Rheumatology 12/12/14 Camilo Hall MD [address] [place] [address] Surgery - Ophthalmology 04/29/18
== END 2023-09-29 10:56 | disposition home or self-care (01) ==
LOC: NFLDREF 10-01 15:48
PROVIDERS: PCP Family Medicine; Referring Provider Family Medicine; Visit Provider Family Medicine
DX: E03.9 Hypothyroidism, unspecified (principal)
CPT/HCPCS: 84443

== ENCOUNTER 2024-11-23 08:20 | Outpatient (CLI) | payer BC, SELFPAY | END 2024-11-23 08:21 | disposition home or self-care (01) | PROVIDERS: PCP Family Medicine; Visit Provider Family Medicine | DX: E03.9 Hypothyroidism, unspecified (principal); E55.9 Vitamin D deficiency, unspecified | CPT/HCPCS: 80048; 84439; 84443 ==

== ENCOUNTER 2025-02-14 08:43 | Outpatient (CLI) | payer BC, SELFPAY | END 2025-02-14 08:44 | disposition home or self-care (01) | PROVIDERS: PCP Family Medicine; Visit Provider Family Medicine | DX: E55.9 Vitamin D deficiency, unspecified (principal); E03.9 Hypothyroidism, unspecified; Z98.84 Bariatric surgery status | CPT/HCPCS: 82306; 82607; 82728; 84443; 85025 ==